=== PATIENT | male | born 1950 | race Caucasian/White ===

== ENCOUNTER 2016-07-26 00:02 | Inpatient (IN) | payer MEDICARE, OTHER ==
[~2016-07-26] VITALS: Ht 165.1 cm; Wt 54.2 kg
[2016-07-26] VITALS (12 sets, daily range): BP systolic 129–155; BP diastolic 74–79; PULSE 71–96; RESP 18–20; Ht 165.1 cm; Wt 54.2 kg
[~2016-07-26 00:02] MED LIST: ALBU8.5H3 INH; BUDE6HFA INHALATION; CEPASTAT MT; FLUT16SP17 NASAL; HYDR-906 PO; IPRA4AER INHALATION; LORA1TAB PO; ONDA8TAB83 PO; PANT40TA3 PO; PRAV20TA63 PO; PRED20TA PO; PROC10TA10 PO; TAMS-14 PO; TIOT18CA INHALATION; TRAZ100T15 PO; UDROBAC PO; ZOLP10TA PO
[2016-07-26] MEDS ORDERED: IPRATROPIUM (NEB) 0.5 MG/2.5 ML AMP INH STA (00:08)
[2016-07-26] MEDS ORDERED: ALBUTEROL 0.5% (NEB) 2.5 MG/0.5 ML AMP INH STA (00:08)
[2016-07-26] MEDS ORDERED: METHYLPREDNISOLONE 125 MG INJ IV STA (00:08)
[2016-07-26 00:39] LABS: AADO2 Arterial 7.7 mmHg (7.0-24.0); Allen Test ACCEPTAB; Arterial Base Excess 5.8 mmol/L (-3.0-3); Arterial COHb 0.9 % (0.0-3.0); Arterial Fraction of Oxyhgb 98.1 % (93.0-99.0); Arterial HCO3 34.2 mmol/L (22.0-26.0); Arterial MetHb 0.3 % (0.0-1.5); Arterial Total Hemglobin 13.8 g/dl (12.0-18.0); Blood Gas IEPAP 15/5; MODE MASK - BIPAP
[2016-07-26 00:40] LABS: ADD SCAN DIFF NO; BASOPHILS % 0.1 % (0.0-2.0); EOSINOPHILS % 0.1 % (0.0-7.0); HEMATOCRIT 41.5 % (42.0-52.0); LYMPHOCYTES # 1.2 10^3/ul (0.8-2.9); LYMPHOCYTES % 11.5 % (15.0-51.0); MEAN CORPUSCULAR HGB CONC 33.7 g/dl (32.0-37.0); MEAN CORPUSCULAR VOLUME 91.8 fl (82.0-101.0); MEAN PLATELET VOLUME 9.2 fl (7.4-10.4); MONOCYTE # 0.7 10^3/ul (0.3-0.9); MONOCYTES % 7.3 % (0.0-11.0); NEUTROPHIL # 8.2 10^3/ul (1.6-7.5); NEUTROPHILS % 80.5 % (39.0-77.0); PLATELET COUNT 223 10^3/UL (140-415); RED BLOOD COUNT 4.52 10^6/ul (4.70-6.10); RED CELL DISTRIBUTION WIDTH 12.2 % (11.5-14.5); WHITE BLOOD COUNT 10.1 10^3/ul (4.8-10.8)
[2016-07-26] MEDS ORDERED: ONDANSETRON 4 MG INJ IV STA (00:44)
[2016-07-26] MEDS ORDERED: morphine 4 MG/ML VIAL IV STA ×2 (00:44→01:57)
[2016-07-26 00:52] LABS: ALBUMIN 3.8 g/dl (3.3-4.9); CHLORIDE 95 mmol/L (97-110)
[2016-07-26 00:53] LABS: INR 0.92; POTASSIUM 4.8 mmol/L (3.5-5.1); PROTIME 12.4 Sec (12.2-14.2); SODIUM 137 mmol/L (135-144)
[2016-07-26 00:54] LABS: PARTIAL THROMBOPLASTIN TIME 29.6 Sec (25.0-35.0)
[2016-07-26 00:55] LABS: ALBUMIN/GLOBULIN RATIO 1.46; ALKALINE PHOSPHATASE 45 IU/L (42-121); ANION GAP 11 (8-16); ASPARTATE AMINO TRANSFERASE 30 IU/L (15-46); BILIRUBIN,INDIRECT 0.2 mg/dl (0-1.1); BILIRUBIN,TOTAL 0.2 mg/dl (0.2-1.3); CARBON DIOXIDE 36 mmol/L (21-31); CREATININE 0.62 mg/dl (0.61-1.24); TOTAL PROTEIN 6.4 g/dl (6.1-8.1)
[2016-07-26 00:56] LABS: ALANINE AMINOTRANSFERASE 25 IU/L (13-69); BLOOD UREA NITROGEN 17 mg/dl (7-20); GLUCOSE 95 mg/dl (70-220)
[2016-07-26] MEDS ORDERED: CEFEPIME 2GM/50 ML (PMX) 50 ML IVPB STA (01:14)
[2016-07-26] MEDS ORDERED: SODIUM CHLORIDE 0.9% 1L BAG IV* STA (01:14)
[2016-07-26 01:20] LABS: TROPONIN-I < 0.012 ng/ml (0.00-0.12)
[2016-07-26] MEDS ORDERED: VANCOMYCIN 1 GM (PMX) 250 ML IVPB ONE (01:30)
--- NOTE | 2016-07-26 01:40 | RADRPT ---
PROCEDURE: CHEST - 1 VIEW CLINICAL INDICATION: 65-year-old male with shortness of breath. TECHNIQUE: A single frontal AP upright view of the chest was performed. The images were reviewed on a PACS workstation. COMPARISON: Chest x-ray April 16, 2016; CT chest August 14, 2014; chest x-ray August 23, 2014. FINDINGS: The cardiomediastinal silhouette is within normal limits. There is hyperinflation. There is severe emphysematous changes with large bulla identified within the left mid lung zone as previously visua lized. There is no evidence for an infiltrate. There is no evidence for congestive heart failure. There is no evidence for pneumothorax. The osseous structures are intact. IMPRESSION: Severe emphysematous changes with left mid lung zone bulla without significant interval change. .Froy Jackson MD, Date Time Electronically viewed and signed by .Froy Jackson MD, on 07/26/2016 01:40 .M/
--- NOTE | 2016-07-26 01:55 | ERA ---
ER Documentation Chief Complaint Date/Time DATE: 07/26/16 TIME: 01:52 Chief Complaint respiratory distress, from home via EMS HPI This is a 65-year-old male brought in by shortness of breath for I rescue ambulance. Patient said shortness breath started 2 days getting progressively worse. Denies any fevers or chills. Denies any chest pain. Denies any other current complaints. Given albuterol in route by EMS with minimal effect. ROS All systems reviewed and are negative except as per history of present illness. Medications Home Meds Active Scripts Albuterol/Ipratropium* (Combivent Respimat*) 20-100 Mcg/Inh - 4 Gm Aer.w.adap, 1 PUFF INHALATION QID, #1 INHALER Prov:TOM BARCLAY MD 04/20/16 Fluticasone Propionate* (Fluticasone Propionate* Nasal) 50 Mcg/Anderson - 16 Gm Anderson.susp, 1 SPRAY NASAL BID Y for stuffy nose, #1 Prov:TOM BARCLAY MD 04/20/16 Throat Lozenges* (Cepastat*) 9 Jenn Lozenge, 1 LOZENGE MT Q4H Y for SORE THROAT for 30 Days, LOZENGE Prov:TOM BARCLAY MD 04/20/16 Guaifenesin-Codeine Phosphate* (Robitussin* AC) 5 Ml Syrup, 10 ML PO Q6H Y for for cough, #1 1 Refill Prov:TOM BARCLAY MD 04/20/16 Albuterol Sulfate* (Proair HFA*) 8.5 Gm Hfa.aer.ad, 2 PUFF INH Q4, #1 INHALER 2 Refills Prov:TOM BARCLAY MD 04/20/16 Budesonide-Formoterol Fumarate* (Symbicort*) 160-4.5 Hfa.aer.ad, 2 PUFF INHALATION BID, #1 EACH 2 Refills Prov:TOM BARCLAY MD 04/20/16 Tiotropium [place]* (Spiriva*) 18 Mcg Cap.w.dev, 1 CAP INHALATION DAILY, #30 CAP 2 Refills Prov:TOM BARCLAY MD 04/20/16 Trazodone Hcl* (Trazodone Hcl*) 100 Mg Tablet, 100 MG PO QHS, #30 TAB 2 Refills Prov:TOM BARCLAY MD 04/20/16 Zolpidem Tartrate* (Ambien*) 10 Mg Tablet, 10 MG PO QHS Y for INSOMNIA, #30 TAB Prov:TOM BARCLAY MD 04/20/16 Lorazepam* (Lorazepam*) 1 Mg Tablet, 1 MG PO Q6 Y for ANXIETY, #60 TAB 2 Refills Prov:TOM BARCLAY MD 04/20/16 Tamsulosin Hcl* (Flomax*) 0.4 Mg Cap.er.24h, 0.4 MG PO BID for 30 Days, CAP 2 Refills Prov:TOM BARCLAY MD 04/20/16 Prednisone* (Prednisone*) 20 Mg Tab, 20 MG PO DAILY for 28 Days, TAB TAKE 2 tablets , Tue, Tue and OTHER DAYS 1 tablet Prov:TOM BARCLAY MD 04/20/16 Reported Medications Pantoprazole* (Protonix*) 40 Mg Tablet.dr, 40 MG PO DAILY, TAB 04/16/16 Pravastatin Sodium* (Pravastatin Sodium*) 20 Mg Tablet, 20 MG PO HS, TAB 04/16/16 Hydrocodone/Acetaminophen ([place] 5-325 Tablet) 1 Each Tablet, 1 EACH PO Q6H Y for PRN, TAB 04/16/16 Ondansetron Hcl* (Ondansetron Hcl*) 8 Mg Tablet, 8 MG PO Q8 Y for NAUSEA, TAB TAKE AFTHER CHEMO 1 DAY TID AND OTHER DAYS DAILY 04/16/16 Prochlorperazine* (Prochlorperazine*) 10 Mg Tablet, 10 MG PO Q6H Y for NAUSEA, TAB 04/16/16 Allergies Allergies: Coded Allergies: No Known Allergy (Unverified , 04/16/16) PMhx/Soc History of Surgery: Yes (Bilateral inguinal hernia x2, sinus surgery ) Anesthesia Reaction: No Hx Neurological Disorder: No Hx Respiratory Disorders: Yes (COPD, emphysema, ) Hx Cardiac Disorders: Yes (HTN ) Hx Psychiatric Problems: Yes (Depression, anxiety ) Hx Miscellaneous Medical Probl: Yes (Anxiety. Depression. Currently on chemo/ esophageal cancer) Hx Alcohol Use: Yes (Beer occassionally ) Hx Substance Use: No Hx Tobacco Use: Yes (Smokes about 7-8 cig daily ) Smoking Status: Current every day smoker Physical Exam Vitals Vital Signs Date Time Temp Pulse Resp B/P Pulse Ox O2 Delivery O2 Flow Rate FiO2 07/26/16 00:43 97 24 99 30 07/26/16 00:09 97.5 130 34 216/108 86 Physical Exam Const: [] Head: Atraumatic Eyes: Normal Conjunctiva ENT: Normal External Ears, Nose and Mouth. Neck: Full range of motion..~ No meningismus. Resp: Scattered wheezes. Poor air entry. Cardio: Regular rate and rhythm, no murmurs Abd: Soft, non tender, non distended. Normal bowel sounds Skin: No petechiae or rashes Back: No midline or flank tenderness Ext: No cyanosis, or edema Neur: Awake and alert Psych: Normal Mood and Affect Result Diagram: 07/26/16507/26/165 Results 24 hrs Laboratory Tests Test 07/26/16 00:06 07/26/16 00:08 07/26/16 00:24 Activated Partial Thromboplast Time 29.6Sec Alanine Aminotransferase (ALT/SGPT) 25IU/L Albumin 3.8g/dl Albumin/Globulin Ratio 1.46 Alkaline Phosphatase 45IU/L Anion Gap 11 Aspartate Amino Transf (AST/SGOT) 30IU/L Basophils # 0.010^3/ul Basophils % 0.1% Blood Urea Nitrogen 17mg/dl Calcium Level 9.0mg/dl Carbon Dioxide Level 36mmol/L Chloride Level 95mmol/L Creatinine 0.62mg/dl Direct Bilirubin 0.00mg/dl Eosinophils # 0.010^3/ul Eosinophils % 0.1% Globulin 2.60g/dl Glucose Level 95mg/dl Hematocrit 41.5% Hemoglobin 14.0g/dl INR International Normalized Ratio 0.92 Indirect Bilirubin 0.2mg/dl Lymphocytes # 1.210^3/ul Lymphocytes % 11.5% Mean Corpuscular Hemoglobin 31.0pg Mean Corpuscular Hemoglobin Concent 33.7g/dl Mean Corpuscular Volume 91.8fl Mean Platelet Volume 9.2fl Monocytes # 0.710^3/ul Monocytes % 7.3% Neutrophils # 8.210^3/ul Neutrophils % 80.5% Nucleated Red Blood Cells # 0.010^3/ul Nucleated Red Blood Cells % 0.0/100WBC Platelet Count 96894^3/UL Potassium Level 4.8mmol/L Prothrombin Time 12.4Sec Prothrombin Time Ratio 1.0 Red Blood Count 4.5210^6/ul Red Cell Distribution Width 12.2% Sodium Level 137mmol/L Total Bilirubin 0.2mg/dl Total Protein 6.4g/dl Troponin I < 0.012ng/ml White Blood Count 10.110^3/ul Arterial Blood HCO3 34.2mmol/L Arterial Blood Base Excess 5.8mmol/L Arterial Blood Oxygen Saturation 99.3mmHG Kal Test ACCEPTAB Arterial Blood Gas Puncture Site Right Radial Arterial Blood Carboxyhemoglobin 0.9% Arterial Blood Date Drawn 07/26/2016 12:34:10 AM Arterial Blood Methemoglobin 0.3% Arterial Blood pCO2 (Temp correct) 67.9mmhg Arterial Blood pH (Temp corrected) 7.320 Arterial Blood pO2 (Temp corrected) 345.4mmHG Blood Gas A-a O2 Differential 7.7mmHg Blood Gas Actual Respiration Rate 22 Blood Gas IPAP/EPAP Ratio 15/5 Blood Gas Modality MASK - BIPAP Blood Gas Notified Time 07/26/2016 12:38:56 AM Blood Gas Notified Whom MG Blood Gas Respiration Rate 20.0 Blood Gas Specimen Source Blood arterial Blood Gas Temperature 37.0C FiO2 60.0% Oxyhemoglobin Percent 98.1% Total Hemoglobin 13.8g/dl Lactic Acid Level 2.7mmol/L Current Medications Medications (Trade) Dose Ordered Sig/Josef Route PRN Reason Start Time Stop Time Status Last Admin Dose Admin Albuterol (Proventil 0.5% (Neb)) 10 mg ONCE STAT INH 07/26/16 00:08 07/26/16 00:10 DC 07/26/16 00:43 Ipratropium [place] (Atrovent 0.02% (Neb)) 1 mg ONCE STAT INH 07/26/16 00:08 07/26/16 00:10 DC 07/26/16 00:43 Methylprednisolone Sodium Succinate (Solu-Medrol) 125 mg ONCE STAT IV 07/26/16 00:08 07/26/16 00:10 DC 07/26/16 00:28 Morphine Sulfate (morphine) 4 mg ONCE STAT IV 07/26/16 00:44 07/26/16 00:50 DC 07/26/16 00:54 Ondansetron HCl (Zofran Inj) 4 mg ONCE STAT IV 07/26/16 00:44 07/26/16 00:50 DC 07/26/16 00:53 Sodium Chloride 2330 ml 2,330 ml BOLUS OVER 2 HOURS STAT IV* 07/26/16 01:14 07/26/16 01:28 DC 07/26/16 01:30 Cefepime HCl 50 ml @ 100 mls/hr ONCE STAT IVPB 07/26/16 01:14 07/26/16 01:43 DC 07/26/16 01:31 Vancomycin HCl (Vancocin) 250 ml @ 125 mls/hr ONCE ONCE IVPB 07/26/16 01:30 07/26/16 03:29 Procedures/MDM EKG: Rate/Rhythm: Normal Sinus Rhythm QRS, ST, T-waves: No changes consistent w/ acute ischemia Impression: No evidence of ischemia or arrhythmia Chest X-ray 1V Interpreted by me: Soft Tissue: No acute abnormalities Bones: No acute abnormalities Mediastinum/Cardiac Silhouette/Lungs: No acute abnormalities Patient's infectious symptoms have not stabilized and the patient is at risk of rapid decompensation. The patient will be admitted for careful hydration, antibiotic therapy, and infectious source control. Severe Sepsis Assessment: Infectious Source: Unknown End organ damage indicated by: [Lactate > 2.0 mmol/L Severe Sepsis Managment: Blood Cultures X 2 before broad spectrum antibiotics initiated within 3 hours of recognition. 30 ml/kg NS bolus Completed Initial Lactate: [normal] Repeat Lactate pending Critical Care: Time: 45 minutes Treatments/Evaluations: Emergent fluid management, while maintaining close respiratory support. Immediate broad spectrum antibiotic therapy. Simultaneous assessment for possible sources in order to direct therapy. Consideration for invasive and chemical support to prevent respiratory or cardiac collapse. Patient placed on BiPAP. Septic Shock Assessment (1 hour post 30 ml/kg fluid bolus): Hypotension (SBP < 90 or 40 mmHg drop, MAP < 65): [No] Lactic acid > 4.0 [No] Perfusion Reassessment for Septic Shock: Temp 98.6, Pulse 99, RR 22, BP 117/76 Heart Exam: [Tachycardic] Lung Exam: [No Crackles] Capillary Refill: [Delayed] Peripheral Pulses: [Radially present] Skin: [Mottled, pale] Accepting Care Team: Current data and ongoing care discussed. Time: 1 AM Primary Provider: Hospitalist Consulting: [[place]] Outstanding Data: none Critical Care: Time: 45 minutes Treatments/Evaluations: Close monitoring and treatment of unstable vital signs, cardiorespiratory, and neurologic status, while maintaining tight balance of fluid, respiratory, and cardiac interventions. Departure Diagnosis: Primary Impression: Sepsis Qualified Code: A41.9 - Sepsis, due to unspecified organism Additional Impression: Respiratory failure Qualified Code: J96.90 - Respiratory failure, unspecified chronicity, unspecified whether with hypoxia or hypercapnia Condition: Critical TOM GHOSH Jul 26, 2016 01:55
[2016-07-26] MEDS ORDERED: GUAIFENESIN/CODEINE 5ML CUP PO PRN (03:00)
[2016-07-26] MEDS ORDERED: NACL 0.9% 3 ML SYG IV SCH (03:00)
[2016-07-26] MEDS ORDERED: hydrALAzine 20 MG INJ IV PRN (03:00)
[2016-07-26] MEDS ORDERED: NITROGLYCERIN (SL) 0.4 MG TAB SL PRN (03:00)
[2016-07-26] MEDS ORDERED: PROCHLORPERAZINE 10 MG TAB PO PRN (03:00)
[2016-07-26] MEDS ORDERED: VANCOMYCIN IV PER PHARMACY XX SCH (03:00)
[2016-07-26] MEDS ORDERED: CEPASTAT LOZENGE MT PRN (03:00)
[2016-07-26] MEDS ORDERED: DOCUSATE SODIUM 100 MG CAP PO PRN (03:00)
[2016-07-26] MEDS ORDERED: NA PHOSPHATE/BIPHOS 133 ML ENEMA PR PRN (03:00)
[2016-07-26] MEDS ORDERED: ONDANSETRON 4 MG TAB PO PRN (03:00)
[2016-07-26] MEDS ORDERED: ACETAMINOPHEN 325 MG TAB PO PRN (03:00)
[2016-07-26] MEDS ORDERED: ONDANSETRON 4 MG INJ IV PRN (03:00)
--- NOTE | 2016-07-26 04:54 | HP ---
DATE OF ADMISSION: 07/26/2016 CHIEF COMPLAINT: Respiratory distress. HISTORY OF PRESENT ILLNESS: A 65-year-old male with past medical history of esophageal cancer with prior chemoradiation, given COPD, high cholesterol, BPH, current smoker, and hypertension who has be en having shortness of breath symptoms for the last 2 days, getting progressively worse. No fevers or chills. No chest pain. No dizziness or loss of consciousness. No upper or lower GI bleeding. No diarrhea, no constipation, no fevers or chills. When he came into the ER today, he had an ABG pe rformed that showed a pH of 7.32, pCO2 of 67, PaO2 of 345, and bicarbonate of 34. He was placed on BiPAP in the ER and also given antibiotics, breathing treatment, and IV steroids as well. PAST MEDICAL HISTORY: As stated above. ALLERGIES: NO KNOWN DRUG ALLERGIES. MEDICATIONS AT HOME: 1. ProAir HFA 2 puffs inhaled q. 4 hours. 2. Combivent. 3. Flomax 0.4 mg b.i.d. 4. Spiriva inhaled daily. 5. Pravastatin 20 mg at bedtime. 6. [place] 5/325 q. 6 p.r.n. 7. Lorazepam 1 mg p.o. q. 6 p.r.n. 8. Trazodone 100 mg at bedtime. 9. Ambien 10 mg at bedtime. 10. Symbicort 2 puffs inhaled b.i.d. 11. Robitussin-AC q. 6 p.r.n. 12. Flonase b.i.d. p.r.n. 13. Cepastat lozenges q. 4 hours p.r.n. 14. Zofran 8 mg q. 8 hours p.r.n. 15. Protonix 40 mg daily. 16. Prochlorperazine 10 mg q. 6 p.r.n. 17. Prednisone 20 mg daily. PAST SURGICAL HISTORY: Bilateral inguinal hernia surgery x2 in the past and sinus surgery in the [facility]. SOCIAL HISTORY: Drinks alcohol occasionally, beer. Denies any IV drug use, and smokes about 7 to 8 cigarettes daily. PHYSICAL EXAMINATION: VITAL SIGNS: T-max 97.5, pulse 130 to 97, respirations 34 and 24, blood pressure 216/108, and satur ating at initially 86%, now 99% on FIO2 30%. GENERAL: The patient is lying in bed, wearing oxygen mask, in mild distress. HEENT: Pupils equal, round, react to light. Extraocular muscles intact. NECK: Supple, no thyromegaly. LUNGS: Mild wheezes bilaterally at the bases. CARDIOVASCULAR: S1, S2 heard. No rubs or gallops. ABDOMEN: Soft, nontender, nondistended. Normal bowel sounds. No rebound or guarding. MUSCULOSKELETAL: No lower extremity edema bilaterally. NEUROLOGIC: No focal deficits. LABORATORIES: CBC is completely normal. We mentioned the ABG results. The comprehensive metabolic panel shows sodium 137, potassium 4.8, chloride 95, CO2 36, BUN 17, creatinine 0.6, glucose 95. La ctic acid is 2.7. LFTs are normal. Troponin is negative x1. IMAGING: Chest x-ray today shows severe emphysematous changes with left mid lung zone bulla without any significant interval change. ASSESSMENT AND PLAN: A 65-year-old male with past medical history of esophageal cancer, positive sm oking history, and COPD who presents with shortness of breath, signs of sepsis, hypoxia, and hyperte nsive urgency. 1. Shortness of breath. Again, most likely secondary to combination of chronic obstructive pulmona ry disease exacerbation and history of esophageal cancer. Put the patient on breathing treatments a nd admit him to the telemetry floor. DuoNeb q. 4 hours around the clock, IV steroids, Solu-Medrol 1 25 mg q. 6 hours. Put him on broad-spectrum antibiotics as well. Continue his home COPD medication s including Ventolin HFA as well as cough medicines. Check TSH, A1c, and lipid panel. Continue BiP AP as needed. 2. History of esophageal cancer. Continue to monitor for now. No present issues. 3. History of high cholesterol. Check lipid panel. Continue statin. 4. History of smoking. Smoking cessation education and nicotine patch. 5. Benign prostatic hypertrophy. Continue the Flomax. 6. History of hypertensive urgency. Again, blood pressure has come down to 166/91. Continue hydra lazine p.r.n. 7. Sepsis. Lactic acid was elevated. Continue broad spectrum antibiotics and IV fluids. No fever s, however. 8. Gastrointestinal prophylaxis with PPI. 9. Deep venous thrombosis prophylaxis with heparin subcutaneously. Get PT consult as well and OT c onsult. Dictated By: KHRIS PEDRAZA Conf#: [id number] DID#: [id number]
[2016-07-26] MEDS: ALBUTEROL HFA 8 GM INHALER INH SCH ×9 (05:00→21:25)
[2016-07-26] MEDS: ALBUTEROL/IPRATROPIUM (NEB) 3 ML AMP HHN SCH ×5 (05:00→20:59)
[2016-07-26] MEDS: morphine 2 MG INJ IV PRN ×4 (05:22→19:52)
[2016-07-26] MEDS: SOD CHLORIDE 0.9% 1,000 ML IV SCH ×3 (06:19→21:28)
[2016-07-26] MEDS: METHYLPREDNISOLONE 125 MG INJ IV SCH ×4 (06:20→23:36)
[2016-07-26] MEDS: PANTOPRAZOLE (EC) 40 MG TAB PO SCH (06:20)
[2016-07-26] MEDS: PIPER-TAZO 3.375 GM IV (PMX) 100 ML IVPB SCH ×4 (06:21→23:36)
[2016-07-26] MEDS: LORAZEPAM 2 MG INJ IV PRN ×2 (06:55→14:10)
[2016-07-26] MEDS ORDERED: VANCOMYCIN 1 GM in NS 250 ML IVPB SCH (09:00)
[2016-07-26] MEDS ORDERED: NON-FORMULARY/PATIENT OWN MED (Albuterol/Ipratropium* (Combivent Respimat*) 1 PUFF) INHALATION SCH (09:00)
[2016-07-26] MEDS ORDERED: SALMETEROL/FLUTICASONE 250/50 INHA INH SCH (09:00)
[2016-07-26] MEDS ORDERED: NON-FORMULARY/PATIENT OWN MED (Budesonide-Formoterol Fumarate* (Symbicort*) 2 PUFF) INHALATION SCH (09:00)
[2016-07-26] MEDS: TAMSULOSIN (SR) 0.4 MG CAP PO SCH ×2 (09:16→21:25)
[2016-07-26] MEDS: IPRATROPIUM (HFA) 12.9 GM INHALER INH SCH ×4 (09:23→21:26)
[2016-07-26] MEDS: NICOTINE (21 MG/24 HR) PATCH TRANSDERM SCH (09:23)
[2016-07-26] MEDS: HEPARIN 5,000 UNIT/0.5 ML SYG SC SCH ×2 (09:32→21:35)
[2016-07-26] MEDS: SALMETEROL/FLUTICASONE 250/50 INHA INH SCH ×2 (09:40→21:25)
--- NOTE | 2016-07-26 13:35 | CONS ---
Date/Time of Note Date/Time of Note DATE: 07/26/16 TIME: 13:28 Assessment/Plan Assessment/Plan Additional Assessment/Plan Chest x-ray was reviewed from today which is showing severe emphysematous changes. No acute infiltrates identified. Assessment recommendations; 1. Patient admitted for hypercapnic respiratory failure from COPD exacerbation. 2. History of recently diagnosed esophageal cancer. Status post radiation chemotherapy. Continue current treatment. Discontinue antibiotics. BiPAP as needed. Consultation Date/Type/Reason Admit Date/Time Jul 26, 2016 at 01:16 Date of Consultation: Jul 26, 2016 Type of Consultation: Pulmonary Reason for Consultation Pulmonary consultation obtained for evaluation of severe COPD exacerbation. Next History presenting; patient is a 65-year-old male who came into the emergency room today with a 2 or 3 day history of increasing shortness of breath, with wheezing and chest tightness. Patient complains of very scant cough without any sputum production. Denies any hemoptysis, fever or chills. Denies any abdominal pain, nausea vomiting. After being admitted patient has been on BiPAP overnight and according to him that has been significant improvement in his symptoms. He denies any symptoms to suggest any viral illness like arthralgias, myalgias high fever chills or body aches. It is very mild sore throat. Past medical history; 1. Patient recently diagnosed with esophageal cancer about 3 months ago, status post radiation chemotherapy. 2. History of severe COPD. O2 dependent. 3. History of inguinal herniorrhaphy. 4. Most of any coronary artery disease or any other major abdominal surgery. Medications; were reviewed. Allergies; are none. Social history; patient still smokes off and on. No history of alcohol or drug abuse. Family history; patient is single. No history of any malignancy in the family. Occupational history; patient currently on disability. 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 Any hearing loss. Any sinus symptoms. Any seizures. Any headache. Complains of mild sore throat. Denies any dysphagia. Denies any chest pain, pedal wheezing and shortness of breath. Complains of scant cough without any hemoptysis. Denies any sputum production. Patient is also great. Denies any melena, hematochezia. Any arthritis or skin changes. Denies any orthopnea. General exam; elderly male, currently in no distress. Awake and alert. Social History Smoking Status: Former smoker Exam/Review of Systems Vital Signs Vitals Vital Signs Date Time Temp Pulse Resp B/P Pulse Ox O2 Delivery O2 Flow Rate FiO2 07/26/16 12:56 99 5.0 07/26/16 12:55 95 20 Nasal Cannula 07/26/16 11:24 98.3 129/79 07/26/16 07:43 30 Exam HEENT examination; supple neck, no JVD. No lymphadenopathy. Midline trachea. No thyromegaly. Patient is edentulous and wears dentures. Pharynx is clear. Pupils are midsize reactive to light bilaterally. Extraocular movements are intact. Chest examination; diminished breath sounds throughout with mild bilateral wheezing. S1-S2 audible, no murmurs. Regular rhythm. Abdomen examination; soft, no organomegaly. Nontender. Bowel sounds audible. Extremity examination; no peripheral edema. No clubbing. Pulses 1+ bilaterally. [employer] examination; cranial nerves are grossly intact. No focal deficit. Results Result Diagram: 07/26/16 0006 07/26/16 0006 Results 24 hrs Laboratory Tests Test 07/26/16 00:01 07/26/16 00:06 07/26/16 00:08 07/26/16 00:24 Free Thyroxine 0.97 Activated Partial Thromboplast Time 29.6 Alanine Aminotransferase (ALT/SGPT) 25 Albumin 3.8 Albumin/Globulin Ratio 1.46 Alkaline Phosphatase 45 Anion Gap 11 Aspartate Amino Transf (AST/SGOT) 30 Basophils # 0.0 Basophils % 0.1 Blood Urea Nitrogen 17 Calcium Level 9.0 Carbon Dioxide Level 36 H Chloride Level 95 L Creatinine 0.62 Direct Bilirubin 0.00 Eosinophils # 0.0 Eosinophils % 0.1 Globulin 2.60 Glucose Level 95 Hematocrit 41.5 L Hemoglobin 14.0 INR International Normalized Ratio 0.92 Indirect Bilirubin 0.2 Lymphocytes # 1.2 Lymphocytes % 11.5 L Mean Corpuscular Hemoglobin 31.0 Mean Corpuscular Hemoglobin Concent 33.7 Mean Corpuscular Volume 91.8 Mean Platelet Volume 9.2 Monocytes # 0.7 Monocytes % 7.3 Neutrophils # 8.2 H Neutrophils % 80.5 H Nucleated Red Blood Cells # 0.0 Nucleated Red Blood Cells % 0.0 Platelet Count 223 Potassium Level 4.8 Prothrombin Time 12.4 Prothrombin Time Ratio 1.0 Red Blood Count 4.52 L Red Cell Distribution Width 12.2 Sodium Level 137 Total Bilirubin 0.2 Total Protein 6.4 Troponin I < 0.012 White Blood Count 10.1 # Arterial Blood HCO3 34.2 H Arterial Blood Base Excess 5.8 H Arterial Blood Oxygen Saturation 99.3 H Kal Test ACCEPTAB Arterial Blood Gas Puncture Site Right Radial Arterial Blood Carboxyhemoglobin 0.9 Arterial Blood Date Drawn 07/26/2016 12:34:10 AM Arterial Blood Methemoglobin 0.3 Arterial Blood pCO2 (Temp correct) 67.9 H Arterial Blood pH (Temp corrected) 7.320 L Arterial Blood pO2 (Temp corrected) 345.4 H Blood Gas A-a O2 Differential 7.7 Blood Gas Actual Respiration Rate 22 Blood Gas IPAP/EPAP Ratio 15/5 Blood Gas Modality MASK - BIPAP Blood Gas Notified Time 07/26/2016 12:38:56 AM Blood Gas Notified Whom MG Blood Gas Respiration Rate 20.0 Blood Gas Specimen Source Blood arterial Blood Gas Temperature 37.0 FiO2 60.0 Oxyhemoglobin Percent 98.1 Total Hemoglobin 13.8 Lactic Acid Level 2.7 H Test 07/26/16 02:40 07/26/16 05:25 07/26/16 11:50 Lactic Acid Level 1.0 1.4 1.6 Medications Medications Current Medications Ondansetron HCl (Zofran Inj) 4 mg Q6H PRN IV NAUSEA AND/OR VOMITING; Start at 03:00 Acetaminophen (Tylenol Tab) 650 mg Q6H PRN PO PAIN LEVEL 1-3 OR FEVER; Start at 03:00 Acetaminophen/ Hydrocodone Bitart ([place] (5/325)) 1 tab Q6H PRN PO MODERATE PAIN LEVEL 4-6; Start 07/26/16 at 03:00 Morphine Sulfate (morphine) 2 mg Q4H PRN IV SEVERE PAIN LEVEL 7-10 Last administered on 07/26/16t 09:38; Admin Dose 2 MG; Start 07/26/16 at 03:00 Docusate Sodium (Colace) 100 mg Q12H PRN PO CONSTIPATION; Start 07/26/16 at 03: 00 Magnesium Hydroxide (Milk Of Mag) 30 ml DAILY PRN PO CONSTIPATION; Start at 03:00 Sodium Biphosphate/ Sodium Phosphate (Fleet Enema) 133 ml DAILY PRN DC CONSTIPATION; Start 07/26/16 at 03:00 Heparin Sodium (Porcine) (Heparin (5000 Units/0.5 ml)) 5,000 unit Q12 SC Last administered on 07/26/16 09:32; Admin Dose 5,000 UNIT; Start 07/26/16 at 09:00 Lorazepam 0.5 mg 0.5 mg Q6H PRN IV ANXIETY Last administered on 07/26/16 06:55 ; Admin Dose 0.5 MG; Start 07/26/16 at 03:00 Sodium Chloride 1,000 ml @ 100 mls/hr Q10H IV Last administered on 07/26/16 06:19; Admin Dose 100 MLS/HR; Start 07/26/16 at 02:39 Piperacillin Sod/ Tazobactam Sod (Zosyn 3.375gm/ 100 ml (Pmx)) 100 ml @ 200 mls /hr Q6 IVPB Last administered on 07/26/16 12:22; Admin Dose 200 MLS/HR; Start 07/26/16 at 06:00 Vancomycin HCl (Vanco Iv Per Pharmacy) VANCOMYCIN PER PHARMACY NOTE XX ; Start 07/26/16 at 03:00 Hydralazine HCl (Apresoline) 10 mg Q6H PRN IV ELEVATED BLOOD PRESSURE; Start at 03:00 Nitroglycerin (Nitroglycerin (Sl Tab) 0.4 Mg) 1 tab Q5M PRN SL ANGINA; Start at 03:00 Albuterol (Ventolin Hfa) 2 puff Q4 INH ; Start 07/26/16 at 05:00 Fluticasone Propionate (Flonase 0.05% Nasal) 1 spray BID PRN NASAL stuffy nose ; Start 07/26/16 at 03:00 Guaifenesin/ Codeine Phosphate (Robitussin Ac Liquid Cup) 10 ml Q6H PRN PO for cough; Start 07/26/16 at 03:00 Ondansetron HCl (Zofran Tab) 8 mg Q8 PRN PO NAUSEA; Start 07/26/16 at 03:00 Pantoprazole (Protonix Tab) 40 mg DAILY@06 PO Last administered on 07/26/16 06 :20; Admin Dose 40 MG; Start 07/26/16 at 06:00 Prochlorperazine (Compazine) 10 mg Q6H PRN PO NAUSEA; Start 07/26/16 at 03:00 Tamsulosin HCl (Flomax) 0.4 mg BID PO Last administered on 07/26/16 09:16; Admin Dose 0.4 MG; Start 07/26/16 at 09:00 Phenol (Cepastat Lozenge) 1 lozenge Q4H PRN MT SORE THROAT; Start 07/26/16 at 03:00 Trazodone HCl (Desyrel) 100 mg QHS PO ; Start 07/26/16 at 21:00 Methylprednisolone Sodium Succinate (Solu-Medrol) 125 mg Q6 IV Last administered on 07/26/16 12:20; Admin Dose 125 MG; Start 07/26/16 at 06:00 Nicotine (Nicoderm 21 Mg/ 24hr) 1 patch DAILY TRANSDERM Last administered on 09:23; Admin Dose 1 PATCH; Start 07/26/16 at 09:00 Atorvastatin Calcium 10 mg 10 mg DAILY@21 PO ; Start 07/26/16 at 21:00 Vancomycin HCl (Vancocin) 250 ml @ 125 mls/hr Q12H IVPB Last administered on 09:24; Admin Dose 125 MLS/HR; Start 07/26/16 at 09:00 Albuterol (Ventolin Hfa) 1 puff QID INH Last administered on 07/26/16 13:17; Admin Dose 1 PUFF; Start 07/26/16 at 09:00 Ipratropium [place] (Atrovent Hfa) 1 puff QID INH Last administered on 13:16; Admin Dose 1 PUFF; Start 07/26/16 at 09:00 Salmeterol Xinafoate/ Fluticasone (Advair 250/50 Diskus) 1 inh BID INH Last administered on 07/26/16 09:40; Admin Dose 1 INH; Start 07/26/16 at 09:00 [place] 20, 2017 13:35
--- NOTE | 2016-07-26 14:45 | PN ---
Date/Time of Note Date/Time of Note DATE: 07/26/16 TIME: 14:39 Assessment/Plan VTE Prophylaxis VTE Prophylaxis Intervention: SCD's Lines/Catheters IV Catheter Type [facility]from [facility]): Saline Lock Assessment/Plan Chief Complaint/Hosp Course ASSESSMENT AND PLAN: 1. Shortness of breath. most likely secondary to combination of chronic obstructive pulmonary disease exacerbation and history of esophageal cancer. Continue on breathing treatments , DuoNeb q. 4 hours around the clock, IV steroids, Solu-Medrol 125 mg q. 6 hours. Continue broad-spectrum antibiotics as well. Continue his home COPD medications including Ventolin HFA as well as cough medicines. Continue BiPAP as needed. 2. History of esophageal cancer. Continue to monitor for now. No present issues. 3. History of high cholesterol. Continue statin. 4. History of smoking. Smoking cessation education and nicotine patch. 5. Benign prostatic hypertrophy. Continue the Flomax. 6. History of hypertensive urgency. Continue home medication, placed the patient on hydralazine as needed 7. Sepsis. Lactic acid was elevated. Continue broad spectrum antibiotics and IV fluids. No fevers, however. 8. Gastrointestinal prophylaxis with PPI. 9. Deep venous thrombosis prophylaxis with heparin subcutaneously. Get PT consult as well and OT consult. Problems: Subjective 24 Hr Interval Summary Free Text/Dictation Patient continues to complain of having shortness of breath with cough and congestion No nausea vomiting diarrhea Difficulty with ambulation secondary to shortness of breath Exam/Review of Systems Vital Signs Vitals Vital Signs Date Time Temp Pulse Resp B/P Pulse Ox O2 Delivery O2 Flow Rate FiO2 07/26/16 12:56 99 5.0 07/26/16 12:55 95 20 Nasal Cannula 07/26/16 11:24 98.3 129/79 07/26/16 07:43 30 Exam General: The patient is well-developed, Not in acute distress. HEENT: Atraumatic, normocephalic. The pupils are equal and round . Neck: Supple with full range of motion. Chest: Normal expansion of the thorax during inspiration Lungs: Bilateral upper lung wheezing Heart: Normal S1-S2, Regular rhythm and rate. Abdomen: Soft , nontender, nondistended , bowel sounds are present. Extremities: Normal to inspection, no edema no cyanosis Neurologic: Normal mental status,The patient is awake, alert and oriented . Results Result Diagram: 07/26/16 0006 07/26/16 0006 Results 24 hrs Laboratory Tests Test 07/26/16 00:01 07/26/16 00:06 07/26/16 00:08 07/26/16 00:24 Free Thyroxine 0.97 Activated Partial Thromboplast Time 29.6 Alanine Aminotransferase (ALT/SGPT) 25 Albumin 3.8 Albumin/Globulin Ratio 1.46 Alkaline Phosphatase 45 Anion Gap 11 Aspartate Amino Transf (AST/SGOT) 30 Basophils # 0.0 Basophils % 0.1 Blood Urea Nitrogen 17 Calcium Level 9.0 Carbon Dioxide Level 36 H Chloride Level 95 L Creatinine 0.62 Direct Bilirubin 0.00 Eosinophils # 0.0 Eosinophils % 0.1 Globulin 2.60 Glucose Level 95 Hematocrit 41.5 L Hemoglobin 14.0 INR International Normalized Ratio 0.92 Indirect Bilirubin 0.2 Lymphocytes # 1.2 Lymphocytes % 11.5 L Mean Corpuscular Hemoglobin 31.0 Mean Corpuscular Hemoglobin Concent 33.7 Mean Corpuscular Volume 91.8 Mean Platelet Volume 9.2 Monocytes # 0.7 Monocytes % 7.3 Neutrophils # 8.2 H Neutrophils % 80.5 H Nucleated Red Blood Cells # 0.0 Nucleated Red Blood Cells % 0.0 Platelet Count 223 Potassium Level 4.8 Prothrombin Time 12.4 Prothrombin Time Ratio 1.0 Red Blood Count 4.52 L Red Cell Distribution Width 12.2 Sodium Level 137 Total Bilirubin 0.2 Total Protein 6.4 Troponin I < 0.012 White Blood Count 10.1 # Arterial Blood HCO3 34.2 H Arterial Blood Base Excess 5.8 H Arterial Blood Oxygen Saturation 99.3 H Kal Test ACCEPTAB Arterial Blood Gas Puncture Site Right Radial Arterial Blood Carboxyhemoglobin 0.9 Arterial Blood Date Drawn 07/26/2016 12:34:10 AM Arterial Blood Methemoglobin 0.3 Arterial Blood pCO2 (Temp correct) 67.9 H Arterial Blood pH (Temp corrected) 7.320 L Arterial Blood pO2 (Temp corrected) 345.4 H Blood Gas A-a O2 Differential 7.7 Blood Gas Actual Respiration Rate 22 Blood Gas IPAP/EPAP Ratio 15/5 Blood Gas Modality MASK - BIPAP Blood Gas Notified Time 07/26/2016 12:38:56 AM Blood Gas Notified Whom MG Blood Gas Respiration Rate 20.0 Blood Gas Specimen Source Blood arterial Blood Gas Temperature 37.0 FiO2 60.0 Oxyhemoglobin Percent 98.1 Total Hemoglobin 13.8 Lactic Acid Level 2.7 H Test 07/26/16 02:40 07/26/16 05:25 07/26/16 11:50 Lactic Acid Level 1.0 1.4 1.6 Medications Medications Current Medications Ondansetron HCl (Zofran Inj) 4 mg Q6H PRN IV NAUSEA AND/OR VOMITING; Start at 03:00 Acetaminophen (Tylenol Tab) 650 mg Q6H PRN PO PAIN LEVEL 1-3 OR FEVER; Start at 03:00 Acetaminophen/ Hydrocodone Bitart ([place] (5/325)) 1 tab Q6H PRN PO MODERATE PAIN LEVEL 4-6; Start 07/26/16 at 03:00 Morphine Sulfate (morphine) 2 mg Q4H PRN IV SEVERE PAIN LEVEL 7-10 Last administered on 07/26/16 09:38; Admin Dose 2 MG; Start 07/26/16 at 03:00 Docusate Sodium (Colace) 100 mg Q12H PRN PO CONSTIPATION; Start 07/26/16 at 03: 00 Magnesium Hydroxide (Milk Of Mag) 30 ml DAILY PRN PO CONSTIPATION; Start at 03:00 Sodium Biphosphate/ Sodium Phosphate (Fleet Enema) 133 ml DAILY PRN [place] CONSTIPATION; Start 07/26/16 at 03:00 Heparin Sodium (Porcine) (Heparin (5000 Units/0.5 ml)) 5,000 unit Q12 SC Last administered on 07/26/16 09:32; Admin Dose 5,000 UNIT; Start 07/26/16 at 09:00 Lorazepam 0.5 mg 0.5 mg Q6H PRN IV ANXIETY Last administered on 07/26/16 14:10 ; Admin Dose 0.5 MG; Start 07/26/16 at 03:00 Sodium Chloride 1,000 ml @ 100 mls/hr Q10H IV Last administered on 07/26/16 06:19; Admin Dose 100 MLS/HR; Start 07/26/16 at 02:39 Piperacillin Sod/ Tazobactam Sod (Zosyn 3.375gm/ 100 ml (Pmx)) 100 ml @ 200 mls /hr Q6 IVPB Last administered on 07/26/16 12:22; Admin Dose 200 MLS/HR; Start 07/26/16 at 06:00 Hydralazine HCl (Apresoline) 10 mg Q6H PRN IV ELEVATED BLOOD PRESSURE; Start at 03:00 Nitroglycerin (Nitroglycerin (Sl Tab) 0.4 Mg) 1 tab Q5M PRN SL ANGINA; Start at 03:00 Albuterol (Ventolin Hfa) 2 puff Q4 INH ; Start 07/26/16 at 05:00 Fluticasone Propionate (Flonase 0.05% Nasal) 1 spray BID PRN NASAL stuffy nose ; Start 07/26/16 at 03:00 Guaifenesin/ Codeine Phosphate (Robitussin Ac Liquid Cup) 10 ml Q6H PRN PO for cough; Start 07/26/16 at 03:00 Ondansetron HCl (Zofran Tab) 8 mg Q8 PRN PO NAUSEA; Start 07/26/16 at 03:00 Pantoprazole (Protonix Tab) 40 mg DAILY@06 PO Last administered on 07/26/16 06 :20; Admin Dose 40 MG; Start 07/26/16 at 06:00 Prochlorperazine (Compazine) 10 mg Q6H PRN PO NAUSEA; Start 07/26/16 at 03:00 Tamsulosin HCl (Flomax) 0.4 mg BID PO Last administered on 07/26/16 09:16; Admin Dose 0.4 MG; Start 07/26/16 at 09:00 Phenol (Cepastat Lozenge) 1 lozenge Q4H PRN [place] SORE THROAT; Start 07/26/16 at 03:00 Trazodone HCl (Desyrel) 100 mg QHS PO ; Start 07/26/16 at 21:00 Methylprednisolone Sodium Succinate (Solu-Medrol) 125 mg Q6 IV Last administered on 07/26/16 12:20; Admin Dose 125 MG; Start 07/26/16 at 06:00 Nicotine (Nicoderm 21 Mg/ 24hr) 1 patch DAILY TRANSDERM Last administered on 09:23; Admin Dose 1 PATCH; Start 07/26/16 at 09:00 Atorvastatin Calcium (Lipitor) 10 mg DAILY@21 PO ; Start 07/26/16 at 21:00 Albuterol (Ventolin Hfa) 1 puff QID INH Last administered on 07/26/16 13:17; Admin Dose 1 PUFF; Start 07/26/16 at 09:00 Ipratropium [place] (Atrovent Hfa) 1 puff QID INH Last administered on 13:16; Admin Dose 1 PUFF; Start 07/26/16 at 09:00 Salmeterol Xinafoate/ Fluticasone (Advair 250/50 Diskus) 1 inh BID INH Last administered on 07/26/16 09:40; Admin Dose 1 INH; Start 07/26/16 at 09:00 INEZ BECKWITH MD Jul 26, 2016 14:45
--- NOTE | 2016-07-26 19:24 | CONS ---
Date/Time of Note Date/Time of Note DATE: 07/26/16 TIME: 19:23 Assessment/Plan Assessment/Plan Chief Complaint/Hosp Course 1. Shortness of breath. most likely secondary to combination of chronic obstructive pulmonary disease exacerbation and Sepsis 2. esophageal cancer S/p chemoradiation 2 months ago 3. History of high cholesterol. Continue statin. 4. History of smoking. Smoking cessation education and nicotine patch. 5. Benign prostatic hypertrophy. Continue the Flomax. 6. History of hypertensive 7. Sepsis. G+ cocci in clusters PLans: 1. esophageal cancer S/p chemoradiation 2 months ago, Was scheduled for repeat PET CT and CT on 07/23/16. Patient missed appointment due to hospitalization. , patient needs to reschedule the PET CT and CT after discharge from hospital. Based on PET CT and CT result, will decide next management plans. Patient missed his appointment with thoracic surgeon as well, need reschedule after discharge. 2. continue ABX 3. 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 repeat blood culture 5. other management per PMD Problems: Consultation Date/Type/Reason Admit Date/Time Jul 26, 2016 at 01:16 Date of Consultation: Jul 26, 2016 Type of Consultation: Hematology and Oncology Reason for Consultation Esophageal SCC s/p concurrent chemoradiation Referring Provider: FARHAD MEYER MD Hx of Present Illness A 65-year-old male with past medical history of esophageal cancer s/p chemoradiation, COPD, high cholesterol, BPH, current smoker, and hypertension who has been having shortness of breath symptoms for 2 days prior admission, getting progressively worse. He called our office, recommended patient either come to office or go to ER. Patient was sent to ER and was admitted to [facility]. No fevers or chills. No chest pain. No dizziness or loss of consciousness. No upper or lower GI bleeding. No diarrhea, no constipation, no fevers or chills. ER , he had an ABG performed that showed a pH of 7.32, pCO2 of 67, PaO2 of 345, and bicarbonate of 34. He was placed on BiPAP in the ER and also given antibiotics, breathing treatment, and IV steroids as well. 07/26/16 Blood cultrure: Gram positive cocci in clusters 1 of 2 bottles seen on gram. Patient is currently on Vanco and Zosyn. felt better. esophageal SCC s/p chemoradiation 2 months. Was scheduled for repeat PET CT and CT on 07/23/16. Patient missed appointment due to hospitalization. Patient called office and would like the oncologist follow up him in the hospital. Hematology and oncology consult for esophageal SCC s/p chemoradiation. Constitutional: No chills, No diaphoresis, No disoriented, No febrile, No improved, No no complaints, No other, No poor po, No requiring IVF, No requiring O2 Respiratory: shortness of breath Cardiovascular: No chest pain, No edema, No lightheadedness, No no complaints, No orthopenea, No other, No palpitations, No paroxysmal nocturnal dyspnea Gastrointestinal: No blood, No constipation, No decreased appetite, No diarrhea , No flatus, No nausea, No no complaints, No other, No pain, No passing stool, No vomiting Genitourinary: No bleeding, No discharge, No dysuria, No flank pain, No hematuria, No no complaints, No other Musculoskeletal: No back pain, No bone/joint pain, No neck pain, No no complaints, No other, No restricted range of motion, No swelling Neurologic: No confusion, No dizziness, No focal-weakness, No headache, No no complaints, No other, No seizure, No syncope Endocrine: No dry skin, No no complaints, No other, No polydypsia, No polyuria , No temp intolerance Past Medical History history of esophageal cancer s/p chemoradiation, COPD, high cholesterol, BPH, current smoker, and hypertension Past Surgical History Past Surgical Hx: no surgical history Family History Significant Family History: no pertinent family hx Social History Alcohol Use: none Smoking Status: Former smoker (quit last year after diagnosed SCC) Drug Use: none Exam/Review of Systems Vital Signs Vitals Vital Signs Date Time Temp Pulse Resp B/P Pulse Ox O2 Delivery O2 Flow Rate FiO2 07/26/16 18:10 96 98 30 07/26/16 17:42 4.0 07/26/16 17:04 20 Nasal Cannula 07/26/16 16:29 98.0 140/74 Exam Constitutional: No alert, No distress, No frail, No non-verbal, No obese, No oriented, No other, No well developed Eyes: No EOMI, No PERRL, No fundi, disc, No icteric, No nl conjunctiva, No nl lids, No nl sclera, No other ENMT: No intubated, No mucosa pink and moist, No nl external ears & nose, No nl lips & teeth, No nl nasal mucosa & septum, No other, No tympanic membranes Neck: No bruits, No jvd, No masses, No non-tender, No nuchal rigidity, No other , No supple, No thyromegaly Respiratory: diminished breath sounds Cardiovascular: No S3, No S4, No bruits, No diastolic murmur, No edema, No gallop, No irregular rhythm, No jugular venous distention (JVD), No murmurs/ extra sounds, No nl pulses, No other, No regular rate and rhythm, No rub, No systolic murmur Gastrointestinal: No ascites, No bowel sounds, No distended, No firm, No hepatomegaly, No mass, No nl liver, spleen, No non-tender, No other, No rebound or guarding, No soft, No splenomegaly, No surgical scars, No tender Extremities: No calf tenderness, No clubbing, No cyanosis, No edema, No normal pulses, No other, No palpable cord, No pitting pedal edema, No tenderness Neurological: No BUNDLE SHAKER II-XII intact, No DTR's symmetric, No confused, No focal weakness, No lethargic, No nl mental status, No nl speech, No nl strength, No numbness, No other, No reflexes, No unresponsive Results Result Diagram: 07/26/16507/26/166 Results 24 hrs Laboratory Tests Test 07/26/16 00:01 07/26/16 00:06 07/26/16 00:08 07/26/16 00:24 Free Thyroxine 0.97 Activated Partial Thromboplast Time 29.6 Alanine Aminotransferase (ALT/SGPT) 25 Albumin 3.8 Albumin/Globulin Ratio 1.46 Alkaline Phosphatase 45 Anion Gap 11 Aspartate Amino Transf (AST/SGOT) 30 Basophils # 0.0 Basophils % 0.1 Blood Urea Nitrogen 17 Calcium Level 9.0 Carbon Dioxide Level 36 H Chloride Level 95 L Creatinine 0.62 Direct Bilirubin 0.00 Eosinophils # 0.0 Eosinophils % 0.1 Globulin 2.60 Glucose Level 95 Hematocrit 41.5 L Hemoglobin 14.0 INR International Normalized Ratio 0.92 Indirect Bilirubin 0.2 Lymphocytes # 1.2 Lymphocytes % 11.5 L Mean Corpuscular Hemoglobin 31.0 Mean Corpuscular Hemoglobin Concent 33.7 Mean Corpuscular Volume 91.8 Mean Platelet Volume 9.2 Monocytes # 0.7 Monocytes % 7.3 Neutrophils # 8.2 H Neutrophils % 80.5 H Nucleated Red Blood Cells # 0.0 Nucleated Red Blood Cells % 0.0 Platelet Count 223 Potassium Level 4.8 Prothrombin Time 12.4 Prothrombin Time Ratio 1.0 Red Blood Count 4.52 L Red Cell Distribution Width 12.2 Sodium Level 137 Total Bilirubin 0.2 Total Protein 6.4 Troponin I < 0.012 White Blood Count 10.1 # Arterial Blood HCO3 34.2 H Arterial Blood Base Excess 5.8 H Arterial Blood Oxygen Saturation 99.3 H Kal Test ACCEPTAB Arterial Blood Gas Puncture Site Right Radial Arterial Blood Carboxyhemoglobin 0.9 Arterial Blood Date Drawn 07/26/2016 12:34:10 AM Arterial Blood Methemoglobin 0.3 Arterial Blood pCO2 (Temp correct) 67.9 H Arterial Blood pH (Temp corrected) 7.320 L Arterial Blood pO2 (Temp corrected) 345.4 H Blood Gas A-a O2 Differential 7.7 Blood Gas Actual Respiration Rate 22 Blood Gas IPAP/EPAP Ratio 15/5 Blood Gas Modality MASK - BIPAP Blood Gas Notified Time 07/26/2016 12:38:56 AM Blood Gas Notified Whom MG Blood Gas Respiration Rate 20.0 Blood Gas Specimen Source Blood arterial Blood Gas Temperature 37.0 FiO2 60.0 Oxyhemoglobin Percent 98.1 Total Hemoglobin 13.8 Lactic Acid Level 2.7 H Test 07/26/16 02:40 07/26/16 05:25 07/26/16 11:50 Lactic Acid Level 1.0 1.4 1.6 Medications Medications Current Medications Ondansetron HCl (Zofran Inj) 4 mg Q6H PRN IV NAUSEA AND/OR VOMITING; Start at 03:00 Acetaminophen (Tylenol Tab) 650 mg Q6H PRN PO PAIN LEVEL 1-3 OR FEVER; Start at 03:00 Acetaminophen/ Hydrocodone Bitart ([place] (5/325)) 1 tab Q6H PRN PO MODERATE PAIN LEVEL 4-6; Start 07/26/16 at 03:00 Morphine Sulfate (morphine) 2 mg Q4H PRN IV SEVERE PAIN LEVEL 7-10 Last administered on 07/26/16t 14:52; Admin Dose 2 MG; Start 07/26/16 at 03:00 Docusate Sodium (Colace) 100 mg Q12H PRN PO CONSTIPATION; Start 07/26/16 at 03: 00 Magnesium Hydroxide (Milk Of Mag) 30 ml DAILY PRN PO CONSTIPATION; Start at 03:00 Sodium Biphosphate/ Sodium Phosphate (Fleet Enema) 133 ml DAILY PRN [place] CONSTIPATION; Start 07/26/16 at 03:00 Heparin Sodium (Porcine) (Heparin (5000 Units/0.5 ml)) 5,000 unit Q12 SC Last administered on 07/26/16 09:32; Admin Dose 5,000 UNIT; Start 07/26/16 at 09:00 Lorazepam 0.5 mg 0.5 mg Q6H PRN IV ANXIETY Last administered on 07/26/16 14:10 ; Admin Dose 0.5 MG; Start 07/26/16 at 03:00 Sodium Chloride 1,000 ml @ 100 mls/hr Q10H IV Last administered on 07/26/16 06:19; Admin Dose 100 MLS/HR; Start 07/26/16 at 02:39 Piperacillin Sod/ Tazobactam Sod (Zosyn 3.375gm/ 100 ml (Pmx)) 100 ml @ 200 mls /hr Q6 IVPB Last administered on 07/26/16 17:37; Admin Dose 200 MLS/HR; Start 07/26/16 at 06:00 Hydralazine HCl (Apresoline) 10 mg Q6H PRN IV ELEVATED BLOOD PRESSURE; Start at 03:00 Nitroglycerin (Nitroglycerin (Sl Tab) 0.4 Mg) 1 tab Q5M PRN SL ANGINA; Start at 03:00 Albuterol (Ventolin Hfa) 2 puff Q4 INH Last administered on 07/26/16 17:36; Admin Dose 2 PUFF; Start 07/26/16 at 05:00 Fluticasone Propionate (Flonase 0.05% Nasal) 1 spray BID PRN NASAL stuffy nose ; Start 07/26/16 at 03:00 Guaifenesin/ Codeine Phosphate (Robitussin Ac Liquid Cup) 10 ml Q6H PRN PO for cough; Start 07/26/16 at 03:00 Ondansetron HCl (Zofran Tab) 8 mg Q8 PRN PO NAUSEA; Start 07/26/16 at 03:00 Pantoprazole (Protonix Tab) 40 mg DAILY@06 PO Last administered on 07/26/16 06 :20; Admin Dose 40 MG; Start 07/26/16 at 06:00 Prochlorperazine (Compazine) 10 mg Q6H PRN PO NAUSEA; Start 07/26/16 at 03:00 Tamsulosin HCl (Flomax) 0.4 mg BID PO Last administered on 07/26/16 09:16; Admin Dose 0.4 MG; Start 07/26/16 at 09:00 Phenol (Cepastat Lozenge) 1 lozenge Q4H PRN MT SORE THROAT; Start 07/26/16 at 03:00 Trazodone HCl (Desyrel) 100 mg QHS PO ; Start 07/26/16 at 21:00 Methylprednisolone Sodium Succinate (Solu-Medrol) 125 mg Q6 IV Last administered on 07/26/16 17:37; Admin Dose 125 MG; Start 07/26/16 at 06:00 Nicotine (Nicoderm 21 Mg/ 24hr) 1 patch DAILY TRANSDERM Last administered on 09:23; Admin Dose 1 PATCH; Start 07/26/16 at 09:00 Atorvastatin Calcium (Lipitor) 10 mg DAILY@21 PO ; Start 07/26/16 at 21:00 Albuterol (Ventolin Hfa) 1 puff QID INH Last administered on 07/26/16 13:17; Admin Dose 1 PUFF; Start 07/26/16 at 09:00 Ipratropium [place] (Atrovent Hfa) 1 puff QID INH Last administered on 17:36; Admin Dose 1 PUFF; Start 07/26/16 at 09:00 Salmeterol Xinafoate/ Fluticasone (Advair 250/50 Diskus) 1 inh BID INH Last administered on 07/26/16 09:40; Admin Dose 1 INH; Start 07/26/16 at 09:00 FARHAD MEYER MD Jul 26, 2016 19:24
[2016-07-26] MEDS ORDERED: NON-FORMULARY/PATIENT OWN MED (Pravastatin Sodium* 20 MG) PO SCH (21:00)
[2016-07-26] MEDS: ATORVASTATIN 10 MG TAB PO SCH (21:25)
[2016-07-26] MEDS: traZODone 100 MG TAB PO SCH (21:26)
[2016-07-27] VITALS (18 sets, daily range): BP systolic 122–173; BP diastolic 64–94; PULSE 71–110; RESP 17–20
[2016-07-27] MEDS: ALBUTEROL HFA 8 GM INHALER INH SCH ×8 (01:00→20:53)
[2016-07-27] MEDS: ALBUTEROL/IPRATROPIUM (NEB) 3 ML AMP HHN SCH ×6 (01:29→09:24)
[2016-07-27] MEDS: LORAZEPAM 2 MG INJ IV PRN ×3 (05:15→22:23)
[2016-07-27] MEDS: METHYLPREDNISOLONE 125 MG INJ IV SCH ×3 (05:38→20:05)
[2016-07-27] MEDS: PIPER-TAZO 3.375 GM IV (PMX) 100 ML IVPB SCH ×4 (05:38→23:49)
[2016-07-27] MEDS: PANTOPRAZOLE (EC) 40 MG TAB PO SCH (05:38)
[2016-07-27] MEDS: morphine 2 MG INJ IV PRN ×3 (06:29→17:17)
[2016-07-27 07:14] LABS: CHOL/HDL RATIO 2.3 RATIO
[2016-07-27 07:41] LABS: THYROID STIMULATING HORMONE 0.072 MIU/L (0.465-4.680)
[2016-07-27 08:15] LABS: ADD SCAN DIFF NO
[2016-07-27 08:19] LABS: ADD UMIC NO; URINE BILIRUBIN (Dip) NEGATIVE (NEGATIVE); URINE BLOOD (Dip) NEGATIVE (NEGATIVE); URINE COLOR LT. YELLOW (YELLOW); URINE GLUCOSE (Dip) NEGATIVE (NEGATIVE); URINE KETONES (Dip) NEGATIVE (NEGATIVE); URINE LEUKOCYTE ESTERASE (Dip) NEGATIVE (NEGATIVE); URINE NITRITE (Dip) NEGATIVE (NEGATIVE); URINE TOTAL PROTEIN (Dip) NEGATIVE (NEGATIVE); URINE UROBILINOGEN (Dip) 0.2 E.U./dL (0.1-1.0)
[2016-07-27 08:36] LABS: POTASSIUM 3.5 mmol/L (3.5-5.1)
[2016-07-27 08:38] LABS: CREATININE 0.52 mg/dl (0.61-1.24)
[2016-07-27 08:39] LABS: CALCIUM 8.5 mg/dl (8.4-10.2); MAGNESIUM 2.1 mg/dl (1.7-2.5); PHOSPHORUS 3.2 mg/dl (2.5-4.9)
[2016-07-27] MEDS: TAMSULOSIN (SR) 0.4 MG CAP PO SCH ×2 (08:39→20:53)
[2016-07-27] MEDS: NICOTINE (21 MG/24 HR) PATCH TRANSDERM SCH (08:39)
[2016-07-27] MEDS: IPRATROPIUM (HFA) 12.9 GM INHALER INH SCH ×4 (08:41→20:52)
[2016-07-27] MEDS: HEPARIN 5,000 UNIT/0.5 ML SYG SC SCH ×2 (08:41→20:12)
[2016-07-27] MEDS: SALMETEROL/FLUTICASONE 250/50 INHA INH SCH ×2 (08:41→20:52)
[2016-07-27] MEDS: SOD CHLORIDE 0.9% 1,000 ML IV SCH (08:49)
[2016-07-27 08:51] LABS: ABNORMAL IP MESSAGE 1; HEMATOCRIT 32.5 % (42.0-52.0); LYMPHOCYTES # 0.2 10^3/ul (0.8-2.9); MEAN CORPUSCULAR HEMOGLOBIN 30.6 pg (29.0-33.0); MEAN CORPUSCULAR HGB CONC 33.8 g/dl (32.0-37.0); MEAN CORPUSCULAR VOLUME 90.5 fl (82.0-101.0); MEAN PLATELET VOLUME 9.7 fl (7.4-10.4); MONOCYTE # 0.2 10^3/ul (0.3-0.9); MONOCYTES % 3.5 % (0.0-11.0); NEUTROPHIL # 5.3 10^3/ul (1.6-7.5); NEUTROPHILS % 91.8 % (39.0-77.0); PLATELET COUNT 151 10^3/UL (140-415); RED BLOOD COUNT 3.59 10^6/ul (4.70-6.10); RED CELL DISTRIBUTION WIDTH 12.2 % (11.5-14.5); WHITE BLOOD COUNT 5.8 10^3/ul (4.8-10.8)
[2016-07-27] MEDS ORDERED: LORAZEPAM 2 MG INJ IV SCH (09:50)
--- NOTE | 2016-07-27 11:08 | CONS ---
Date/Time of Note Date/Time of Note DATE: 07/27/16 TIME: 11:06 Assessment/Plan Assessment/Plan Additional Assessment/Plan Assessment recommendations; 1. Patient admitted for severe COPD exacerbation with hypercapnic respiratory failure. 2. Recently diagnosed esophageal cancer, status post radiation and chemotherapy. Next Continue current treatment resume BiPAP. Continue current Solu-Medrol dosing as well as current bronchodilator regimen. Consultation Date/Type/Reason Admit Date/Time Jul 26, 2016 at 01:16 Initial Consult Date 07/26/16 Type of Consultation: Pulmonary Referring Provider: FARHAD MEYER MD 24 HR Interval Summary Free Text/Dictation Patient condition is tenuous at best. Still complains of shortness of breath off BiPAP. Denies any cough but complains of wheezing. Denies any fever, chills. Any nausea vomiting. Next General exam; elderly male, currently in no distress appears mildly tachypneic. Exam/Review of Systems Vital Signs Vitals Vital Signs Date Time Temp Pulse Resp B/P Pulse Ox O2 Delivery O2 Flow Rate FiO2 07/27/16 09:15 96 95 30 07/27/16 08:45 Nasal Cannula 4.0 07/27/16 07:32 98.2 20 147/86 Intake and Output 07/26/16 07/26/16 07/27/16 15:00 23:00 07:00 Intake Total 350 ml 1300 ml 1380 ml Output Total 1000 ml 1400 ml Balance 350 ml 300 ml -20 ml Exam H EENT exam; supple neck, no JVD. No lymphadenopathy. Midline trachea. No thyromegaly. Pharynx is clear. Patient has fair dentition. Pupils are midsize reactive to light. Chest examination MA: Very poor breath sounds bilaterally with bilateral expiratory wheezing. S1-S2 audible, no murmurs. Regular rhythm. Abdomen examination; soft, nondistended. No organomegaly. Bowel sounds audible. Next Extremity examination; no peripheral edema. Pulses 1+ bilaterally. No clubbing. [employer] exam is; no focal deficit. Results Result Diagram: 07/27/16 0602 07/27/16 0602 Results 24 hrs Laboratory Tests Test 07/26/16 11:50 07/26/16 18:45 07/27/16 06:02 Lactic Acid Level 1.6 3.0 H Anion Gap 10 Basophils # 0.0 Basophils % 0.0 Blood Urea Nitrogen 12 Calcium Level 8.5 Carbon Dioxide Level 32 H Chloride Level 102 Cholesterol Level 178 Cholesterol/HDL Ratio 2.3 Creatinine 0.52 L Eosinophils # 0.0 Eosinophils % 0.0 Glucose Level 129 HDL Cholesterol 77 Hematocrit 32.5 #L Hemoglobin 11.0 #L Hemoglobin A1c 5.2 LDL Cholesterol, Calculated 84 Lymphocytes # 0.2 L Lymphocytes % 4.0 L Magnesium Level 2.1 Mean Corpuscular Hemoglobin 30.6 Mean Corpuscular Hemoglobin Concent 33.8 Mean Corpuscular Volume 90.5 Mean Platelet Volume 9.7 Monocytes # 0.2 L Monocytes % 3.5 Neutrophils # 5.3 Neutrophils % 91.8 H Nucleated Red Blood Cells # 0.0 Nucleated Red Blood Cells % 0.0 Phosphorus Level 3.2 Platelet Count 151 # Potassium Level 3.5 Red Blood Count 3.59 #L Red Cell Distribution Width 12.2 Sodium Level 140 Thyroid Stimulating Hormone (TSH) 0.072 L Triglycerides Level 84 White Blood Count 5.8 # Medications Medications Current Medications Ondansetron HCl (Zofran Inj) 4 mg Q6H PRN IV NAUSEA AND/OR VOMITING; Start at 03:00 Acetaminophen (Tylenol Tab) 650 mg Q6H PRN PO PAIN LEVEL 1-3 OR FEVER; Start at 03:00 Acetaminophen/ Hydrocodone Bitart ([place] (5/325)) 1 tab Q6H PRN PO MODERATE PAIN LEVEL 4-6; Start 07/26/16 at 03:00 Morphine Sulfate (morphine) 2 mg Q4H PRN IV SEVERE PAIN LEVEL 7-10 Last administered on 07/27/16 06:29; Admin Dose 2 MG; Start 07/26/16 at 03:00 Docusate Sodium (Colace) 100 mg Q12H PRN PO CONSTIPATION; Start 07/26/16 at 03: 00 Magnesium Hydroxide (Milk Of Mag) 30 ml DAILY PRN PO CONSTIPATION; Start at 03:00 Sodium Biphosphate/ Sodium Phosphate (Fleet Enema) 133 ml DAILY PRN [place] CONSTIPATION; Start 07/26/16 at 03:00 Heparin Sodium (Porcine) (Heparin (5000 Units/0.5 ml)) 5,000 unit Q12 SC Last administered on 07/27/16 08:41; Admin Dose 5,000 UNIT; Start 07/26/16 at 09:00 Lorazepam 0.5 mg 0.5 mg Q6H PRN IV ANXIETY Last administered on 07/27/16 05:15 ; Admin Dose 0.5 MG; Start 07/26/16 at 03:00 Sodium Chloride 1,000 ml @ 100 mls/hr Q10H IV Last administered on 07/27/16 08:49; Admin Dose 100 MLS/HR; Start 07/26/16 at 02:39 Piperacillin Sod/ Tazobactam Sod (Zosyn 3.375gm/ 100 ml (Pmx)) 100 ml @ 200 mls /hr Q6 IVPB Last administered on 07/27/16 05:38; Admin Dose 200 MLS/HR; Start 07/26/16 at 06:00 Hydralazine HCl (Apresoline) 10 mg Q6H PRN IV ELEVATED BLOOD PRESSURE; Start at 03:00 Nitroglycerin (Nitroglycerin (Sl Tab) 0.4 Mg) 1 tab Q5M PRN SL ANGINA; Start at 03:00 Albuterol (Ventolin Hfa) 2 puff Q4 INH Last administered on 07/26/16 21:25; Admin Dose 2 PUFF; Start 07/26/16 at 05:00 Fluticasone Propionate (Flonase 0.05% Nasal) 1 spray BID PRN NASAL stuffy nose ; Start 07/26/16 at 03:00 Guaifenesin/ Codeine Phosphate (Robitussin Ac Liquid Cup) 10 ml Q6H PRN PO for cough; Start 07/26/16 at 03:00 Ondansetron HCl (Zofran Tab) 8 mg Q8 PRN PO NAUSEA; Start 07/26/16 at 03:00 Pantoprazole (Protonix Tab) 40 mg DAILY@06 PO Last administered on 07/27/16 05 :38; Admin Dose 40 MG; Start 07/26/16 at 06:00 Prochlorperazine (Compazine) 10 mg Q6H PRN PO NAUSEA; Start 07/26/16 at 03:00 Tamsulosin HCl (Flomax) 0.4 mg BID PO Last administered on 07/27/16 08:39; Admin Dose 0.4 MG; Start 07/26/16 at 09:00 Phenol (Cepastat Lozenge) 1 lozenge Q4H PRN [place] SORE THROAT; Start 07/26/16 at 03:00 Trazodone HCl (Desyrel) 100 mg QHS PO Last administered on 07/26/16 21:26; Admin Dose 100 MG; Start 07/26/16 at 21:00 Methylprednisolone Sodium Succinate (Solu-Medrol) 125 mg Q6 IV Last administered on 07/27/16 05:38; Admin Dose 125 MG; Start 07/26/16 at 06:00 Nicotine (Nicoderm 21 Mg/ 24hr) 1 patch DAILY TRANSDERM Last administered on 08:39; Admin Dose 1 PATCH; Start 07/26/16 at 09:00 Atorvastatin Calcium (Lipitor) 10 mg DAILY@21 PO Last administered on 21:25; Admin Dose 10 MG; Start 07/26/16 at 21:00 Albuterol (Ventolin Hfa) 1 puff QID INH Last administered on 07/27/16 08:42; Admin Dose 1 PUFF; Start 07/26/16 at 09:00 Ipratropium [place] (Atrovent Hfa) 1 puff QID INH Last administered on 08:41; Admin Dose 1 PUFF; Start 07/26/16 at 09:00 Salmeterol Xinafoate/ Fluticasone (Advair 250/50 Diskus) 1 inh BID INH Last administered on 07/27/16 08:41; Admin Dose 1 INH; Start 07/26/16 at 09:00 Lorazepam (Ativan) 0.5 mg ONCE IV Last administered on 07/27/16 09:53; Admin Dose 0.5 MG; Start 07/27/16 at 09:50; Stop 07/27/16 at 11:30 SPRING TURCIOS Jul 27, 2016 11:08
--- NOTE | 2016-07-27 14:11 | PN ---
Date/Time of Note Date/Time of Note DATE: 07/27/16 TIME: 14:10 Assessment/Plan VTE Prophylaxis VTE Prophylaxis Intervention: SCD's Lines/Catheters [facility] Peripheral IV Urinary Cath still in place: No Assessment/Plan Chief Complaint/Hosp Course ASSESSMENT AND PLAN: 1. Shortness of breath. most likely secondary to combination of chronic obstructive pulmonary disease exacerbation and history of esophageal cancer. Continue on breathing treatments , DuoNeb q. 4 hours around the clock, IV steroids, Solu-Medrol 125 mg q. 6 hours. Continue broad-spectrum antibiotics as well. Continue his home COPD medications including Ventolin HFA as well as cough medicines. Continue BiPAP as needed. 2. History of esophageal cancer. Continue to monitor for now. No present issues. 3. History of high cholesterol. Continue statin. 4. History of smoking. Smoking cessation education and nicotine patch. 5. Benign prostatic hypertrophy. Continue the Flomax. 6. History of hypertensive urgency. Continue home medication, placed the patient on hydralazine as needed 7. Sepsis. Lactic acid was elevated. Continue broad spectrum antibiotics and IV fluids. No fevers, however. 8. Gastrointestinal prophylaxis with PPI. 9. Deep venous thrombosis prophylaxis with heparin subcutaneously. Get PT consult as well and OT consult. Problems: Subjective 24 Hr Interval Summary Free Text/Dictation Patient continues to complain of having shortness of breath Minimal p.o. intake Difficulty with ambulation secondary shortness of breath Exam/Review of Systems Vital Signs Vitals Vital Signs Date Time Temp Pulse Resp B/P Pulse Ox O2 Delivery O2 Flow Rate FiO2 07/27/16 12:16 96 07/27/16 11:14 98.3 20 122/75 96 07/27/16 09:15 30 07/27/16 08:45 Nasal Cannula 4.0 Intake and Output 07/26/16 07/26/16 07/27/16 15:00 23:00 07:00 Intake Total 350 ml 1300 ml 1380 ml Output Total 1000 ml 1400 ml Balance 350 ml 300 ml -20 ml Exam General: The patient is well-developed, Not in acute distress. HEENT: Atraumatic, normocephalic. The pupils are equal and round . Neck: Supple with full range of motion. Chest: Use of accessory muscle with deep inspiration Lungs: Bilateral upper lung wheezing Heart: Normal S1-S2, Regular rhythm and rate. Abdomen: Soft , nontender, nondistended , bowel sounds are present. Extremities: Normal to inspection, no edema no cyanosis Neurologic: Normal mental status,The patient is awake, alert and oriented . Results Result Diagram: 07/27/16 0602 07/27/16 0602 Results 24 hrs Laboratory Tests Test 07/26/16 18:45 07/27/16 06:02 Lactic Acid Level 3.0 H Anion Gap 10 Basophils # 0.0 Basophils % 0.0 Blood Urea Nitrogen 12 Calcium Level 8.5 Carbon Dioxide Level 32 H Chloride Level 102 Cholesterol Level 178 Cholesterol/HDL Ratio 2.3 Creatinine 0.52 L Eosinophils # 0.0 Eosinophils % 0.0 Glucose Level 129 HDL Cholesterol 77 Hematocrit 32.5 #L Hemoglobin 11.0 #L Hemoglobin A1c 5.2 LDL Cholesterol, Calculated 84 Lymphocytes # 0.2 L Lymphocytes % 4.0 L Magnesium Level 2.1 Mean Corpuscular Hemoglobin 30.6 Mean Corpuscular Hemoglobin Concent 33.8 Mean Corpuscular Volume 90.5 Mean Platelet Volume 9.7 Monocytes # 0.2 L Monocytes % 3.5 Neutrophils # 5.3 Neutrophils % 91.8 H Nucleated Red Blood Cells # 0.0 Nucleated Red Blood Cells % 0.0 Phosphorus Level 3.2 Platelet Count 151 # Potassium Level 3.5 Red Blood Count 3.59 #L Red Cell Distribution Width 12.2 Sodium Level 140 Thyroid Stimulating Hormone (TSH) 0.072 L Triglycerides Level 84 White Blood Count 5.8 # Medications Medications Current Medications Ondansetron HCl (Zofran Inj) 4 mg Q6H PRN IV NAUSEA AND/OR VOMITING; Start at 03:00 Acetaminophen (Tylenol Tab) 650 mg Q6H PRN PO PAIN LEVEL 1-3 OR FEVER; Start at 03:00 Acetaminophen/ Hydrocodone Bitart ([place] (5/325)) 1 tab Q6H PRN PO MODERATE PAIN LEVEL 4-6; Start 07/26/16 at 03:00 Morphine Sulfate (morphine) 2 mg Q4H PRN IV SEVERE PAIN LEVEL 7-10 Last administered on 07/27/16t 12:20; Admin Dose 2 MG; Start 07/26/16 at 03:00 Docusate Sodium (Colace) 100 mg Q12H PRN PO CONSTIPATION; Start 07/26/16 at 03: 00 Magnesium Hydroxide (Milk Of Mag) 30 ml DAILY PRN PO CONSTIPATION; Start at 03:00 Sodium Biphosphate/ Sodium Phosphate (Fleet Enema) [address] CONSTIPATION; Start 07/26/16 at 03:00 Heparin Sodium (Porcine) (Heparin (5000 Units/0.5 ml)) 5,000 unit Q12 SC Last administered on 07/27/16 08:41; Admin Dose 5,000 UNIT; Start 07/26/16 at 09:00 Lorazepam 0.5 mg 0.5 mg Q6H PRN IV ANXIETY Last administered on 07/27/16 05:15 ; Admin Dose 0.5 MG; Start 07/26/16 at 03:00 Sodium Chloride 1,000 ml @ 100 mls/hr Q10H IV Last administered on 07/27/16 08:49; Admin Dose 100 MLS/HR; Start 07/26/16 at 02:39 Piperacillin Sod/ Tazobactam Sod (Zosyn 3.375gm/ 100 ml (Pmx)) 100 ml @ 200 mls /hr Q6 IVPB Last administered on 07/27/16 12:19; Admin Dose 200 MLS/HR; Start 07/26/16 at 06:00 Hydralazine HCl (Apresoline) 10 mg Q6H PRN IV ELEVATED BLOOD PRESSURE; Start at 03:00 Nitroglycerin (Nitroglycerin (Sl Tab) 0.4 Mg) 1 tab Q5M PRN SL ANGINA; Start at 03:00 Albuterol (Ventolin Hfa) 2 puff Q4 INH Last administered on 07/26/16 21:25; Admin Dose 2 PUFF; Start 07/26/16 at 05:00 Fluticasone Propionate (Flonase 0.05% Nasal) 1 spray BID PRN NASAL stuffy nose ; Start 07/26/16 at 03:00 Guaifenesin/ Codeine Phosphate (Robitussin Ac Liquid Cup) 10 ml Q6H PRN PO for cough; Start 07/26/16 at 03:00 Ondansetron HCl (Zofran Tab) 8 mg Q8 PRN PO NAUSEA; Start 07/26/16 at 03:00 Pantoprazole (Protonix Tab) 40 mg DAILY@06 PO Last administered on 07/27/16 05 :38; Admin Dose 40 MG; Start 07/26/16 at 06:00 Prochlorperazine (Compazine) 10 mg Q6H PRN PO NAUSEA; Start 07/26/16 at 03:00 Tamsulosin HCl (Flomax) 0.4 mg BID PO Last administered on 07/27/16 08:39; Admin Dose 0.4 MG; Start 07/26/16 at 09:00 Phenol (Cepastat Lozenge) 1 lozenge Q4H PRN [place] SORE THROAT; Start 07/26/16 at 03:00 Trazodone HCl (Desyrel) 100 mg QHS PO Last administered on 07/26/16 21:26; Admin Dose 100 MG; Start 07/26/16 at 21:00 Methylprednisolone Sodium Succinate (Solu-Medrol) 125 mg Q6 IV Last administered on 07/27/16 12:18; Admin Dose 125 MG; Start 07/26/16 at 06:00 Nicotine (Nicoderm 21 Mg/ 24hr) 1 patch DAILY TRANSDERM Last administered on 08:39; Admin Dose 1 PATCH; Start 07/26/16 at 09:00 Atorvastatin Calcium (Lipitor) 10 mg DAILY@21 PO Last administered on 21:25; Admin Dose 10 MG; Start 07/26/16 at 21:00 Albuterol (Ventolin Hfa) 1 puff QID INH Last administered on 07/27/16 12:24; Admin Dose 1 PUFF; Start 07/26/16 at 09:00 Ipratropium [place] (Atrovent Hfa) 1 puff QID INH Last administered on 12:24; Admin Dose 1 PUFF; Start 07/26/16 at 09:00 Salmeterol Xinafoate/ Fluticasone (Advair 250/50 Diskus) 1 inh BID INH Last administered on 07/27/16 08:41; Admin Dose 1 INH; Start 07/26/16 at 09:00 INEZ BECKWITH MD Jul 27, 2016 14:11
--- NOTE | 2016-07-27 17:40 | CONS ---
Date/Time of Note Date/Time of Note DATE: 07/27/16 TIME: 17:29 Consult Date/Type/Reason Admit Date/Time Jul 26, 2016 at 01:16 Initial Consult Date 07/26/16 Type of Consultation: hematology and oncology Reason for Consultation Esophageal cancer S/p concurrent chemoradiation. Ordering Provider: FARHAD MEYER MD Subjective SOB Worsening this afternoon. Positive I/O Objective Vital Signs Date Time Temp Pulse Resp B/P Pulse Ox O2 Delivery O2 Flow Rate FiO2 07/27/16 16:41 87 07/27/16 15:43 98.3 20 155/86 98 07/27/16 14:15 40 07/27/16 08:45 Nasal Cannula 4.0 Intake and Output 07/26/16 07/26/16 07/27/16 15:00 23:00 07:00 Intake Total 350 ml 1300 ml 1380 ml Output Total 1000 ml 1400 ml Balance 350 ml 300 ml -20 ml Results/Medications Result Diagram: 07/27/16 0602 07/27/16 0602 Results 24 hrs Laboratory Tests Test 07/26/16 18:45 07/27/16 06:02 Lactic Acid Level 3.0 H Anion Gap 10 Basophils # 0.0 Basophils % 0.0 Blood Urea Nitrogen 12 Calcium Level 8.5 Carbon Dioxide Level 32 H Chloride Level 102 Cholesterol Level 178 Cholesterol/HDL Ratio 2.3 Creatinine 0.52 L Eosinophils # 0.0 Eosinophils % 0.0 Glucose Level 129 HDL Cholesterol 77 Hematocrit 32.5 #L Hemoglobin 11.0 #L Hemoglobin A1c 5.2 LDL Cholesterol, Calculated 84 Lymphocytes # 0.2 L Lymphocytes % 4.0 L Magnesium Level 2.1 Mean Corpuscular Hemoglobin 30.6 Mean Corpuscular Hemoglobin Concent 33.8 Mean Corpuscular Volume 90.5 Mean Platelet Volume 9.7 Monocytes # 0.2 L Monocytes % 3.5 Neutrophils # 5.3 Neutrophils % 91.8 H Nucleated Red Blood Cells # 0.0 Nucleated Red Blood Cells % 0.0 Phosphorus Level 3.2 Platelet Count 151 # Potassium Level 3.5 Red Blood Count 3.59 #L Red Cell Distribution Width 12.2 Sodium Level 140 Thyroid Stimulating Hormone (TSH) 0.072 L Triglycerides Level 84 White Blood Count 5.8 # Medications Current Medications Ondansetron HCl (Zofran Inj) 4 mg Q6H PRN IV NAUSEA AND/OR VOMITING; Start at 03:00 Acetaminophen (Tylenol Tab) 650 mg Q6H PRN PO PAIN LEVEL 1-3 OR FEVER; Start at 03:00 Acetaminophen/ Hydrocodone Bitart ([place] (5/325)) 1 tab Q6H PRN PO MODERATE PAIN LEVEL 4-6; Start 07/26/16 at 03:00 Morphine Sulfate (morphine) 2 mg Q4H PRN IV SEVERE PAIN LEVEL 7-10 Last administered on 07/27/16 17:17; Admin Dose 2 MG; Start 07/26/16 at 03:00 Docusate Sodium (Colace) 100 mg Q12H PRN PO CONSTIPATION; Start 07/26/16 at 03: 00 Magnesium Hydroxide (Milk Of Mag) 30 ml DAILY PRN PO CONSTIPATION; Start at 03:00 Sodium Biphosphate/ Sodium Phosphate (Fleet Enema) 133 ml DAILY PRN [place] CONSTIPATION; Start 07/26/16 at 03:00 Heparin Sodium (Porcine) (Heparin (5000 Units/0.5 ml)) 5,000 unit Q12 SC Last administered on 07/27/16 08:41; Admin Dose 5,000 UNIT; Start 07/26/16 at 09:00 Lorazepam 0.5 mg 0.5 mg Q6H PRN IV ANXIETY Last administered on 07/27/16 15:51 ; Admin Dose 0.5 MG; Start 07/26/16 at 03:00 Sodium Chloride 1,000 ml @ 100 mls/hr Q10H IV Last administered on 07/27/16 08:49; Admin Dose 100 MLS/HR; Start 07/26/16 at 02:39 Piperacillin Sod/ Tazobactam Sod (Zosyn 3.375gm/ 100 ml (Pmx)) 100 ml @ 200 mls /hr Q6 IVPB Last administered on 07/27/16 17:17; Admin Dose 200 MLS/HR; Start 07/26/16 at 06:00 Hydralazine HCl (Apresoline) 10 mg Q6H PRN IV ELEVATED BLOOD PRESSURE; Start at 03:00 Nitroglycerin (Nitroglycerin (Sl Tab) 0.4 Mg) 1 tab Q5M PRN SL ANGINA; Start at 03:00 Fluticasone Propionate (Flonase 0.05% Nasal) 1 spray BID PRN NASAL stuffy nose ; Start 07/26/16 at 03:00 Guaifenesin/ Codeine Phosphate (Robitussin Ac Liquid Cup) 10 ml Q6H PRN PO for cough; Start 07/26/16 at 03:00 Ondansetron HCl (Zofran Tab) 8 mg Q8 PRN PO NAUSEA; Start 07/26/16 at 03:00 Pantoprazole (Protonix Tab) 40 mg DAILY@06 PO Last administered on 07/27/16 05 :38; Admin Dose 40 MG; Start 07/26/16 at 06:00 Prochlorperazine (Compazine) 10 mg Q6H PRN PO NAUSEA; Start 07/26/16 at 03:00 Tamsulosin HCl (Flomax) 0.4 mg BID PO Last administered on 07/27/16 08:39; Admin Dose 0.4 MG; Start 07/26/16 at 09:00 Phenol (Cepastat Lozenge) 1 lozenge Q4H PRN MT SORE THROAT; Start 07/26/16 at 03:00 Trazodone HCl (Desyrel) 100 mg QHS PO Last administered on 07/26/16 21:26; Admin Dose 100 MG; Start 07/26/16 at 21:00 Nicotine (Nicoderm 21 Mg/ 24hr) 1 patch DAILY TRANSDERM Last administered on 08:39; Admin Dose 1 PATCH; Start 07/26/16 at 09:00 Atorvastatin Calcium (Lipitor) 10 mg DAILY@21 PO Last administered on 21:25; Admin Dose 10 MG; Start 07/26/16 at 21:00 Albuterol (Ventolin Hfa) 1 puff QID INH Last administered on 07/27/16 17:16; Admin Dose 1 PUFF; Start 07/26/16 at 09:00 Ipratropium [place] (Atrovent Hfa) 1 puff QID INH Last administered on 17:16; Admin Dose 1 PUFF; Start 07/26/16 at 09:00 Salmeterol Xinafoate/ Fluticasone (Advair 250/50 Diskus) 1 inh BID INH Last administered on 3/21/17at 08:41; Admin Dose 1 INH; Start 07/26/16 at 09:00 Methylprednisolone Sodium Succinate (Solu-Medrol) 80 mg Q8H IV ; Start 07/27/16 at 20:00 Assessment/Plan Chief Complaint/Hosp Course 1. Shortness of breath. most likely secondary to combination of chronic obstructive pulmonary disease exacerbation and Sepsis 2. esophageal cancer S/p chemoradiation 2 months ago 3. History of high cholesterol. Continue statin. 4. History of smoking. Smoking cessation education and nicotine patch. 5. Benign prostatic hypertrophy. Continue the Flomax. 6. History of hypertensive 7. Sepsis. G+ cocci in clusters PLans: 1. SOB worsening this afternoon, positive I/O, chest xray STAT to rule out fluid overload. Recommend decreased IVF rate. 2. Repeat lactic acid in AM. 3. esophageal cancer S/p chemoradiation 2 months ago, Was scheduled for repeat PET CT and CT on 07/23/16. Patient missed appointment due to hospitalization. , patient needs to reschedule the PET CT and CT after discharge from hospital. Based on PET CT and CT result, will decide next management plans. Patient missed his appointment with thoracic surgeon as well, need reschedule after discharge. 4. continue ABX 5. Follow up [employer] for COPD 6. repeat blood culture on 07/29/16 7. other management per PMD Problems: FARHAD MEYER MD Jul 27, 2016 17:40
[2016-07-27] MEDS: traZODone 100 MG TAB PO SCH (20:53)
[2016-07-27] MEDS: ATORVASTATIN 10 MG TAB PO SCH (20:53)
[2016-07-28] VITALS (17 sets, daily range): BP systolic 128–182; BP diastolic 73–90; PULSE 60–100; RESP 19–20
[2016-07-28] MEDS: ALBUTEROL/IPRATROPIUM (NEB) 3 ML AMP HHN SCH ×5 (01:19→20:31)
[2016-07-28] MEDS: METHYLPREDNISOLONE 125 MG INJ IV SCH ×3 (03:53→20:35)
[2016-07-28] MEDS: LORAZEPAM 2 MG INJ IV PRN ×3 (04:10→16:18)
[2016-07-28] MEDS: PIPER-TAZO 3.375 GM IV (PMX) 100 ML IVPB SCH ×3 (05:32→19:06)
[2016-07-28] MEDS: PANTOPRAZOLE (EC) 40 MG TAB PO SCH (05:32)
--- NOTE | 2016-07-28 06:58 | RADRPT ---
PROCEDURE: XR Chest. CLINICAL INDICATION: Worsening shortness of breath TECHNIQUE: Portable single view of the chest COMPARISON: 07/26 FINDINGS: The heart size remains within normal limits. Again seen are changes of severe bullous emphysema. T here is a 9 mm nodular density projecting over the left upper lobe. No lung nodule is seen on CT fr om 04/16/2016 and this was not evident on the chest x-ray from yesterday. No focal infiltrate, pleu ral effusion, or overt congestive heart failure is seen. Degenerative change of the spine is seen. Aortic calcification. IMPRESSION: 9 mm nodular density projecting over the left upper lobe. This may be on the skin or outside the pa tient given lack of visualization on recent chest x-ray and CT examinations. RPTAT: [facility] Physician Gerardo Date Time Electronically viewed and signed by Kerry Duke Physician on 07/28/2016 06:58 BRINDA/
[2016-07-28] MEDS ORDERED: ATENOLOL 25 MG TAB PO SCH (09:00)
[2016-07-28] MEDS: TAMSULOSIN (SR) 0.4 MG CAP PO SCH ×2 (09:06→20:35)
[2016-07-28] MEDS: NICOTINE (21 MG/24 HR) PATCH TRANSDERM SCH (09:08)
[2016-07-28] MEDS: HEPARIN 5,000 UNIT/0.5 ML SYG SC SCH ×2 (09:08→20:40)
[2016-07-28] MEDS: SALMETEROL/FLUTICASONE 250/50 INHA INH SCH ×2 (09:14→20:37)
[2016-07-28] MEDS: IPRATROPIUM (HFA) 12.9 GM INHALER INH SCH ×4 (09:15→20:36)
[2016-07-28] MEDS: ALBUTEROL HFA 8 GM INHALER INH SCH ×4 (09:16→20:36)
[2016-07-28] MEDS: FLUTICASONE 0.05% 16 GM NAS SPRAY NASAL PRN (10:21)
[2016-07-28 10:48] LABS: ADD SCAN DIFF NO
[2016-07-28 10:54] LABS: ABNORMAL IP MESSAGE 1; HEMATOCRIT 35.3 % (42.0-52.0); HEMOGLOBIN 11.7 g/dl (14.0-18.0); LYMPHOCYTES # 0.1 10^3/ul (0.8-2.9); LYMPHOCYTES % 1.3 % (15.0-51.0); MEAN CORPUSCULAR HEMOGLOBIN 29.9 pg (29.0-33.0); MEAN CORPUSCULAR HGB CONC 33.1 g/dl (32.0-37.0); MEAN CORPUSCULAR VOLUME 90.3 fl (82.0-101.0); MEAN PLATELET VOLUME 9.1 fl (7.4-10.4); MONOCYTE # 0.5 10^3/ul (0.3-0.9); MONOCYTES % 5.3 % (0.0-11.0); NEUTROPHIL # 7.8 10^3/ul (1.6-7.5); NEUTROPHILS % 92.5 % (39.0-77.0); PLATELET COUNT 141 10^3/UL (140-415); RED BLOOD COUNT 3.91 10^6/ul (4.70-6.10); RED CELL DISTRIBUTION WIDTH 12.3 % (11.5-14.5); WHITE BLOOD COUNT 8.5 10^3/ul (4.8-10.8)
[2016-07-28 11:01] LABS: POTASSIUM 3.1 mmol/L (3.5-5.1)
[2016-07-28 11:04] LABS: CREATININE 0.58 mg/dl (0.61-1.24)
[2016-07-28 11:05] LABS: CALCIUM 8.6 mg/dl (8.4-10.2)
--- NOTE | 2016-07-28 12:12 | PN ---
Date/Time of Note Date/Time of Note DATE: 07/28/16 TIME: 12:03 Assessment/Plan VTE Prophylaxis VTE Prophylaxis Intervention: SCD's Lines/Catheters [facility] Peripheral IV Urinary Cath still in place: No Assessment/Plan Chief Complaint/Hosp Course ASSESSMENT AND PLAN: 1. Shortness of breath. most likely secondary to combination of chronic obstructive pulmonary disease exacerbation and history of esophageal cancer. Continue on breathing treatments , DuoNeb q. 4 hours around the clock, IV steroids, Solu-Medrol 125 mg q. 6 hours. Continue broad-spectrum antibiotics as well. Continue his home COPD medications including Ventolin HFA as well as cough medicines. Continue BiPAP as needed. 2. History of esophageal cancer. Continue to monitor for now. No present issues. 3. History of high cholesterol. Continue statin. 4. History of smoking. Smoking cessation education and nicotine patch. 5. Benign prostatic hypertrophy. Continue the Flomax. 6. History of hypertensive urgency. Continue home medication, placed the patient on hydralazine as needed 7. Sepsis. Lactic acid was elevated. Continue broad spectrum antibiotics and IV fluids. No fevers, however. 8. Gastrointestinal prophylaxis with PPI. 9. Deep venous thrombosis prophylaxis with heparin subcutaneously. Get PT consult as well and OT consult. Problems: Subjective 24 Hr Interval Summary Free Text/Dictation Patient continues to complain of having shortness of breath Minimal p.o. intake secondary to shortness of breath Has not been able to ambulate Exam/Review of Systems Vital Signs Vitals Vital Signs Date Time Temp Pulse Resp B/P Pulse Ox O2 Delivery O2 Flow Rate FiO2 07/28/16 11:05 85 96 40 07/28/16 07:50 97.7 20 148/81 07/28/16 07:49 4.0 07/28/16 04:20 Nasal Cannula Intake and Output 07/27/16 07/27/16 07/28/16 15:00 23:00 07:00 Intake Total 100 ml 2300 ml 320 ml Output Total 400 ml 1415 ml Balance 100 ml 1900 ml -1095 ml Exam General: The patient is underweight, Not in acute distress. HEENT: Atraumatic, normocephalic. The pupils are equal and round . Neck: Supple with full range of motion. Chest: Normal expansion of the thorax during inspiration Lungs: Bilateral upper lung wheezing Heart: Normal S1-S2, Regular rhythm and rate. Abdomen: Soft , nontender, nondistended , bowel sounds are present. Extremities: Normal to inspection, no edema no cyanosis Neurologic: Normal mental status,The patient is awake, alert and oriented . Results Result Diagram: 07/28/16 1018 07/28/16 1018 Results 24 hrs Laboratory Tests Test 07/28/16 10:18 White Blood Count 8.5 # Red Blood Count 3.91 L Hemoglobin 11.7 L Hematocrit 35.3 L Mean Corpuscular Volume 90.3 Mean Corpuscular Hemoglobin 29.9 Mean Corpuscular Hemoglobin Concent 33.1 Red Cell Distribution Width 12.3 Platelet Count 141 Mean Platelet Volume 9.1 Neutrophils % 92.5 H Lymphocytes % 1.3 L Monocytes % 5.3 Eosinophils % 0.0 Basophils % 0.0 Nucleated Red Blood Cells % 0.0 Neutrophils # 7.8 H Lymphocytes # 0.1 L Monocytes # 0.5 Eosinophils # 0.0 Basophils # 0.0 Nucleated Red Blood Cells # 0.0 Sodium Level 139 Potassium Level 3.1 L Chloride Level 97 Carbon Dioxide Level 36 H Anion Gap 9 Blood Urea Nitrogen 20 Creatinine 0.58 L Glucose Level 109 Calcium Level 8.6 Medications Medications Current Medications Ondansetron HCl (Zofran Inj) 4 mg Q6H PRN IV NAUSEA AND/OR VOMITING; Start at 03:00 Acetaminophen (Tylenol Tab) 650 mg Q6H PRN PO PAIN LEVEL 1-3 OR FEVER; Start at 03:00 Acetaminophen/ Hydrocodone Bitart ([place] (5/325)) 1 tab Q6H PRN PO MODERATE PAIN LEVEL 4-6; Start 07/26/16 at 03:00 Morphine Sulfate (morphine) 2 mg Q4H PRN IV SEVERE PAIN LEVEL 7-10 Last administered on 07/27/16t 17:17; Admin Dose 2 MG; Start 07/26/16 at 03:00 Docusate Sodium (Colace) 100 mg Q12H PRN PO CONSTIPATION; Start 07/26/16 at 03: 00 Magnesium Hydroxide (Milk Of Mag) 30 ml DAILY PRN PO CONSTIPATION; Start at 03:00 Sodium Biphosphate/ Sodium Phosphate (Fleet Enema) 133 ml DAILY PRN [place] CONSTIPATION; Start 07/26/16 at 03:00 Heparin Sodium (Porcine) (Heparin (5000 Units/0.5 ml)) 5,000 unit Q12 SC Last administered on 07/28/16 09:08; Admin Dose 5,000 UNIT; Start 07/26/16 at 09:00 Lorazepam 0.5 mg 0.5 mg Q6H PRN IV ANXIETY Last administered on 07/28/16 10:13 ; Admin Dose 0.5 MG; Start 07/26/16 at 03:00 Piperacillin Sod/ Tazobactam Sod (Zosyn 3.375gm/ 100 ml (Pmx)) 100 ml @ 200 mls /hr Q6 IVPB Last administered on 07/28/16 11:31; Admin Dose 200 MLS/HR; Start 07/26/16 at 06:00 Hydralazine HCl (Apresoline) 10 mg Q6H PRN IV ELEVATED BLOOD PRESSURE Last administered on 07/28/16 03:53; Admin Dose 10 MG; Start 07/26/16 at 03:00 Nitroglycerin (Nitroglycerin (Sl Tab) 0.4 Mg) 1 tab Q5M PRN SL ANGINA; Start at 03:00 Fluticasone Propionate (Flonase 0.05% Nasal) 1 spray BID PRN NASAL stuffy nose Last administered on 07/28/16 10:21; Admin Dose 1 SPRAY; Start 07/26/16 at 03: 00 Guaifenesin/ Codeine Phosphate (Robitussin Ac Liquid Cup) 10 ml Q6H PRN PO for cough; Start 07/26/16 at 03:00 Ondansetron HCl (Zofran Tab) 8 mg Q8 PRN PO NAUSEA; Start 07/26/16 at 03:00 Pantoprazole (Protonix Tab) 40 mg DAILY@06 PO Last administered on 07/28/16 05 :32; Admin Dose 40 MG; Start 07/26/16 at 06:00 Prochlorperazine (Compazine) 10 mg Q6H PRN PO NAUSEA; Start 07/26/16 at 03:00 Tamsulosin HCl (Flomax) 0.4 mg BID PO Last administered on 07/28/16 09:06; Admin Dose 0.4 MG; Start 07/26/16 at 09:00 Phenol (Cepastat Lozenge) 1 lozenge Q4H PRN [place] SORE THROAT; Start 07/26/16 at 03:00 Trazodone HCl (Desyrel) 100 mg QHS PO Last administered on 07/27/16 20:53; Admin Dose 100 MG; Start 07/26/16 at 21:00 Nicotine (Nicoderm 21 Mg/ 24hr) 1 patch DAILY TRANSDERM Last administered on 09:08; Admin Dose 1 PATCH; Start 07/26/16 at 09:00 Atorvastatin Calcium (Lipitor) 10 mg DAILY@21 PO Last administered on 20:53; Admin Dose 10 MG; Start 07/26/16 at 21:00 Albuterol (Ventolin Hfa) 1 puff QID INH Last administered on 07/28/16 09:16; Admin Dose 1 PUFF; Start 07/26/16 at 09:00 Ipratropium [place] (Atrovent Hfa) 1 puff QID INH Last administered on 09:15; Admin Dose 1 PUFF; Start 07/26/16 at 09:00 Salmeterol Xinafoate/ Fluticasone (Advair 250/50 Diskus) 1 inh BID INH Last administered on 07/28/16 09:14; Admin Dose 1 INH; Start 07/26/16 at 09:00 Methylprednisolone Sodium Succinate (Solu-Medrol) 80 mg Q8H IV Last administered on 07/28/16 11:31; Admin Dose 80 MG; Start 07/27/16 at 20:00 Atenolol (Tenormin) 25 mg DAILY PO Last administered on 07/28/16 09:06; Admin Dose 25 MG; Start 07/28/16 at 09:00 INEZ BECKWITH MD Jul 28, 2016 12:12
[2016-07-28] MEDS: morphine 2 MG INJ IV PRN (14:48)
[2016-07-28] MEDS: MAGNESIUM HYDROXIDE 30ML CUP PO PRN (16:13)
--- NOTE | 2016-07-28 19:29 | CONS ---
Date/Time of Note Date/Time of Note DATE: 07/28/16 TIME: 19:28 Consult Date/Type/Reason Admit Date/Time Jul 26, 2016 at 01:16 Initial Consult Date 07/26/16 Type of Consultation: hematology and oncology Reason for Consultation esophageal SCC Ordering Provider: FARHAD MEYER MD Subjective SOB is improved Objective Vital Signs Date Time Temp Pulse Resp B/P Pulse Ox O2 Delivery O2 Flow Rate FiO2 07/28/16 18:22 98 25 94 Nasal Cannula 4.0 07/28/16 16:24 98.2 150/90 07/28/16 11:05 40 Intake and Output 07/27/16 07/27/16 07/28/16 15:00 23:00 07:00 Intake Total 100 ml 2300 ml 320 ml Output Total 400 ml 1415 ml Balance 100 ml 1900 ml -1095 ml Results/Medications Result Diagram: 07/28/16 1018 07/28/16 1018 Results 24 hrs Laboratory Tests Test 07/28/16 10:18 07/28/16 17:50 White Blood Count 8.5 # Red Blood Count 3.91 L Hemoglobin 11.7 L Hematocrit 35.3 L Mean Corpuscular Volume 90.3 Mean Corpuscular Hemoglobin 29.9 Mean Corpuscular Hemoglobin Concent 33.1 Red Cell Distribution Width 12.3 Platelet Count 141 Mean Platelet Volume 9.1 Neutrophils % 92.5 H Lymphocytes % 1.3 L Monocytes % 5.3 Eosinophils % 0.0 Basophils % 0.0 Nucleated Red Blood Cells % 0.0 Neutrophils # 7.8 H Lymphocytes # 0.1 L Monocytes # 0.5 Eosinophils # 0.0 Basophils # 0.0 Nucleated Red Blood Cells # 0.0 Sodium Level 139 Potassium Level 3.1 L Chloride Level 97 Carbon Dioxide Level 36 H Anion Gap 9 Blood Urea Nitrogen 20 Creatinine 0.58 L Glucose Level 109 Calcium Level 8.6 Lactic Acid Level 1.0 Medications Current Medications Ondansetron HCl (Zofran Inj) 4 mg Q6H PRN IV NAUSEA AND/OR VOMITING; Start at 03:00 Acetaminophen (Tylenol Tab) 650 mg Q6H PRN PO PAIN LEVEL 1-3 OR FEVER; Start at 03:00 Acetaminophen/ Hydrocodone Bitart ([place] (5/325)) 1 tab Q6H PRN PO MODERATE PAIN LEVEL 4-6; Start 07/26/16 at 03:00 Morphine Sulfate (morphine) 2 mg Q4H PRN IV SEVERE PAIN LEVEL 7-10 Last administered on 07/28/16 14:48; Admin Dose 2 MG; Start 07/26/16 at 03:00 Docusate Sodium (Colace) 100 mg Q12H PRN PO CONSTIPATION; Start 07/26/16 at 03: 00 Magnesium Hydroxide (Milk Of Mag) 30 ml DAILY PRN PO CONSTIPATION Last administered on 07/28/16 16:13; Admin Dose 30 ML; Start 07/26/16 at 03:00 Sodium Biphosphate/ Sodium Phosphate (Fleet Enema) 133 ml DAILY PRN [place] CONSTIPATION; Start 07/26/16 at 03:00 Heparin Sodium (Porcine) (Heparin (5000 Units/0.5 ml)) 5,000 unit Q12 SC Last administered on 07/28/16 09:08; Admin Dose 5,000 UNIT; Start 07/26/16 at 09:00 Lorazepam 0.5 mg 0.5 mg Q6H PRN IV ANXIETY Last administered on 07/28/16 16:18 ; Admin Dose 0.5 MG; Start 07/26/16 at 03:00 Piperacillin Sod/ Tazobactam Sod (Zosyn 3.375gm/ 100 ml (Pmx)) 100 ml @ 200 mls /hr Q6 IVPB Last administered on 07/28/16 19:06; Admin Dose 200 MLS/HR; Start 07/26/16 at 06:00 Hydralazine HCl (Apresoline) 10 mg Q6H PRN IV ELEVATED BLOOD PRESSURE Last administered on 07/28/16 03:53; Admin Dose 10 MG; Start 07/26/16 at 03:00 Nitroglycerin (Nitroglycerin (Sl Tab) 0.4 Mg) 1 tab Q5M PRN SL ANGINA; Start at 03:00 Fluticasone Propionate (Flonase 0.05% Nasal) 1 spray BID PRN NASAL stuffy nose Last administered on 07/28/16 10:21; Admin Dose 1 SPRAY; Start 07/26/16 at 03: 00 Guaifenesin/ Codeine Phosphate (Robitussin Ac Liquid Cup) 10 ml Q6H PRN PO for cough Last administered on 07/28/16 17:21; Admin Dose 10 ML; Start 07/26/16 at 03:00 Ondansetron HCl (Zofran Tab) 8 mg Q8 PRN PO NAUSEA; Start 07/26/16 at 03:00 Pantoprazole (Protonix Tab) 40 mg DAILY@06 PO Last administered on 07/28/16 05 :32; Admin Dose 40 MG; Start 07/26/16 at 06:00 Prochlorperazine (Compazine) 10 mg Q6H PRN PO NAUSEA; Start 07/26/16 at 03:00 Tamsulosin HCl (Flomax) 0.4 mg BID PO Last administered on 07/28/16 09:06; Admin Dose 0.4 MG; Start 07/26/16 at 09:00 Phenol (Cepastat Lozenge) 1 lozenge Q4H PRN [place] SORE THROAT; Start 07/26/16 at 03:00 Trazodone HCl (Desyrel) 100 mg QHS PO Last administered on 07/27/16 20:53; Admin Dose 100 MG; Start 07/26/16 at 21:00 Nicotine (Nicoderm 21 Mg/ 24hr) 1 patch DAILY TRANSDERM Last administered on 09:08; Admin Dose 1 PATCH; Start 07/26/16 at 09:00 Atorvastatin Calcium (Lipitor) 10 mg DAILY@21 PO Last administered on 20:53; Admin Dose 10 MG; Start 07/26/16 at 21:00 Albuterol (Ventolin Hfa) 1 puff QID INH Last administered on 07/28/16 18:22; Admin Dose 1 PUFF; Start 07/26/16 at 09:00 Ipratropium [place] (Atrovent Hfa) 1 puff QID INH Last administered on 14:36; Admin Dose 1 PUFF; Start 07/26/16 at 09:00 Salmeterol Xinafoate/ Fluticasone (Advair 250/50 Diskus) 1 inh BID INH Last administered on 07/28/16 09:14; Admin Dose 1 INH; Start 07/26/16 at 09:00 Methylprednisolone Sodium Succinate (Solu-Medrol) 80 mg Q8H IV Last administered on 07/28/16 11:31; Admin Dose 80 MG; Start 07/27/16 at 20:00 Atenolol (Tenormin) 25 mg DAILY PO Last administered on 07/28/16 09:06; Admin Dose 25 MG; Start 07/28/16 at 09:00 Assessment/Plan Chief Complaint/Hosp Course 1. Shortness of breath. most likely secondary to combination of chronic obstructive pulmonary disease exacerbation and Sepsis 2. esophageal cancer S/p chemoradiation 2 months ago 3. History of high cholesterol. Continue statin. 4. History of smoking. Smoking cessation education and nicotine patch. 5. Benign prostatic hypertrophy. Continue the Flomax. 6. History of hypertensive 7. Sepsis. G+ cocci in clusters PLans: 1. . esophageal cancer S/p chemoradiation 2 months ago, Was scheduled for repeat PET CT and CT on 07/23/16. Patient missed appointment due to hospitalization. , patient needs to reschedule the PET CT and CT after discharge from hospital. Based on PET CT and CT result, will decide next management plans. Patient missed his appointment with thoracic surgeon as well, need reschedule after discharge. 2. continue ABX 3. 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 repeat blood culture on 07/29/16 5. other management per PMD Problems: FARHAD MEYER MD Jul 28, 2016 19:29
[2016-07-28] MEDS: traZODone 100 MG TAB PO SCH (20:35)
[2016-07-28] MEDS: ATORVASTATIN 10 MG TAB PO SCH (20:35)
[2016-07-28] MEDS: ATENOLOL 25 MG TAB PO SCH (21:47)
[2016-07-28] MEDS: HYDROCODONE/APAP (5/325) TAB PO PRN (21:47)
[2016-07-29] VITALS (19 sets, daily range): BP systolic 134–179; BP diastolic 78–92; PULSE 63–80; RESP 18–22
[2016-07-29] MEDS: PIPER-TAZO 3.375 GM IV (PMX) 100 ML IVPB SCH ×5 (00:36→23:50)
[2016-07-29] MEDS: ALBUTEROL/IPRATROPIUM (NEB) 3 ML AMP HHN SCH ×6 (01:09→20:10)
[2016-07-29] MEDS: METHYLPREDNISOLONE 125 MG INJ IV SCH ×3 (04:26→20:35)
[2016-07-29] MEDS: LORAZEPAM 2 MG INJ IV PRN ×4 (04:26→23:50)
[2016-07-29] MEDS: PANTOPRAZOLE (EC) 40 MG TAB PO SCH (05:47)
[2016-07-29] MEDS: SALMETEROL/FLUTICASONE 250/50 INHA INH SCH ×2 (08:16→20:40)
[2016-07-29] MEDS: IPRATROPIUM (HFA) 12.9 GM INHALER INH SCH ×4 (08:17→20:40)
[2016-07-29] MEDS: ALBUTEROL HFA 8 GM INHALER INH SCH ×4 (08:18→20:39)
[2016-07-29] MEDS: TAMSULOSIN (SR) 0.4 MG CAP PO SCH ×2 (08:20→20:36)
[2016-07-29] MEDS: ATENOLOL 25 MG TAB PO SCH ×2 (08:20→20:36)
[2016-07-29] MEDS: NICOTINE (21 MG/24 HR) PATCH TRANSDERM SCH (08:20)
[2016-07-29] MEDS: MAGNESIUM HYDROXIDE 30ML CUP PO PRN ×2 (10:04→20:42)
[2016-07-29] MEDS: HEPARIN 5,000 UNIT/0.5 ML SYG SC SCH ×2 (10:06→20:38)
[2016-07-29] MEDS: morphine 2 MG INJ IV PRN (10:09)
[2016-07-29 10:32] LABS: ADD SCAN DIFF NO
[2016-07-29 10:44] LABS: ABNORMAL IP MESSAGE 1; HEMATOCRIT 36.8 % (42.0-52.0); HEMOGLOBIN 12.4 g/dl (14.0-18.0); LYMPHOCYTES # 0.1 10^3/ul (0.8-2.9); LYMPHOCYTES % 1.2 % (15.0-51.0); MEAN CORPUSCULAR HEMOGLOBIN 30.5 pg (29.0-33.0); MEAN CORPUSCULAR HGB CONC 33.7 g/dl (32.0-37.0); MEAN CORPUSCULAR VOLUME 90.4 fl (82.0-101.0); MEAN PLATELET VOLUME 9.4 fl (7.4-10.4); MONOCYTE # 0.3 10^3/ul (0.3-0.9); MONOCYTES % 3.7 % (0.0-11.0); NEUTROPHIL # 7.7 10^3/ul (1.6-7.5); NEUTROPHILS % 94.4 % (39.0-77.0); PLATELET COUNT 150 10^3/UL (140-415); RED BLOOD COUNT 4.07 10^6/ul (4.70-6.10); RED CELL DISTRIBUTION WIDTH 11.9 % (11.5-14.5); WHITE BLOOD COUNT 8.2 10^3/ul (4.8-10.8)
[2016-07-29 10:51] LABS: POTASSIUM 3.7 mmol/L (3.5-5.1)
[2016-07-29 10:54] LABS: CREATININE 0.66 mg/dl (0.61-1.24)
[2016-07-29 10:55] LABS: CALCIUM 8.7 mg/dl (8.4-10.2)
[2016-07-29] MEDS: FLUTICASONE 0.05% 16 GM NAS SPRAY NASAL PRN (11:38)
--- NOTE | 2016-07-29 11:38 | PDOCDIS ---
Discharge Instructions CONDITION Patient Condition: Fair HOME CARE INSTRUCTIONS: Special Diet: 2g na 1800 INEZ Humphrey MD Jul 29, 2016 11:38
[2016-07-29] MEDS ORDERED: [UNRECOGNIZED DRUG - CODE] IV (11:44)
[2016-07-29] MEDS ORDERED: NICO1PAT6 TRANSDERM (11:44)
[2016-07-29] MEDS ORDERED: HEP5KI SC (11:44)
[2016-07-29] MEDS ORDERED: TEN25 PO (11:44)
--- NOTE | 2016-07-29 11:55 | PN ---
Date/Time of Note Date/Time of Note DATE: 07/29/16 TIME: 11:53 Assessment/Plan VTE Prophylaxis VTE Prophylaxis Intervention: heparin Lines/Catheters IV C[facility] Type (from [facility] [place] Urinary Cath still in place: No Assessment/Plan Chief Complaint/Hosp Course ASSESSMENT AND PLAN: 1. Shortness of breath. most likely secondary to combination of chronic obstructive pulmonary disease exacerbation and history of esophageal cancer. Continue on breathing treatments , DuoNeb q. 4 hours around the clock, IV steroids, Solu-Medrol 125 mg q. 6 hours. Continue broad-spectrum antibiotics as well. Continue his home COPD medications including Ventolin HFA as well as cough medicines. Continue BiPAP as needed. 2. History of esophageal cancer. Continue to monitor for now. No present issues. 3. History of high cholesterol. Continue statin. 4. History of smoking. Smoking cessation education and nicotine patch. 5. Benign prostatic hypertrophy. Continue the Flomax. 6. History of hypertensive urgency. Continue home medication, placed the patient on hydralazine as needed 7. Sepsis. Resolved lactic acid was elevated likely reactive secondary to COPD exacerbation. Continue broad spectrum antibiotics and IV fluids. No fevers, however. 8. Gastrointestinal prophylaxis with PPI. 9. Deep venous thrombosis prophylaxis with heparin subcutaneously. Get PT consult as well and OT consult. Plan to [facility] when accepted Problems: Subjective 24 Hr Interval Summary Free Text/Dictation Patient continues to complain of shortness of breath Minimal p.o. intake secondary to shortness of breath Minimal ambulation No nausea vomiting diarrhea Exam/Review of Systems Vital Signs Vitals Vital Signs Date Time Temp Pulse Resp B/P Pulse Ox O2 Delivery O2 Flow Rate FiO2 07/29/16 09:17 76 94 40 07/29/16 07:56 98.0 18 179/90 07/29/16 05:14 Nasal Cannula 4.0 Intake and Output 07/28/16 07/28/16 07/29/16 15:00 23:00 07:00 Intake Total 240 ml 400 ml Output Total 600 ml 700 ml Balance -360 ml -300 ml Exam General: The patient is underweight, Not in acute distress. HEENT: Atraumatic, normocephalic. The pupils are equal and round . Neck: Supple with full range of motion. Chest: Normal Lungs: Decreased breath sounds bilateral lower lung field, poor air entry Heart: Normal S1-S2, Regular rhythm and rate. Abdomen: Soft , nontender, nondistended , bowel sounds are present. Extremities: Normal to inspection, no edema no cyanosis Neurologic: Normal mental status,The patient is awake, alert and oriented . Results Result Diagram: 07/29/16 1001 07/29/16 1001 Results 24 hrs Laboratory Tests Test 07/28/16 17:50 07/29/16 10:01 Lactic Acid Level 1.0 White Blood Count 8.2 Red Blood Count 4.07 L Hemoglobin 12.4 L Hematocrit 36.8 L Mean Corpuscular Volume 90.4 Mean Corpuscular Hemoglobin 30.5 Mean Corpuscular Hemoglobin Concent 33.7 Red Cell Distribution Width 11.9 Platelet Count 150 Mean Platelet Volume 9.4 Neutrophils % 94.4 H Lymphocytes % 1.2 L Monocytes % 3.7 Eosinophils % 0.0 Basophils % 0.0 Nucleated Red Blood Cells % 0.0 Neutrophils # 7.7 H Lymphocytes # 0.1 L Monocytes # 0.3 Eosinophils # 0.0 Basophils # 0.0 Nucleated Red Blood Cells # 0.0 Sodium Level 139 Potassium Level 3.7 Chloride Level 97 Carbon Dioxide Level 38 H Anion Gap 8 Blood Urea Nitrogen 26 H Creatinine 0.66 Glucose Level 124 Calcium Level 8.7 Medications Medications Current Medications Ondansetron HCl (Zofran Inj) 4 mg Q6H PRN IV NAUSEA AND/OR VOMITING; Start at 03:00 Acetaminophen (Tylenol Tab) 650 mg Q6H PRN PO PAIN LEVEL 1-3 OR FEVER; Start at 03:00 Acetaminophen/ Hydrocodone Bitart ([place] (5/325)) 1 tab Q6H PRN PO MODERATE PAIN LEVEL 4-6 Last administered on 07/28/16 21:47; Admin Dose 1 TAB; Start at 03:00 Morphine Sulfate (morphine) 2 mg Q4H PRN IV SEVERE PAIN LEVEL 7-10 Last administered on 07/29/16 10:09; Admin Dose 2 MG; Start 07/26/16 at 03:00 Docusate Sodium (Colace) 100 mg Q12H PRN PO CONSTIPATION; Start 07/26/16 at 03: 00 Magnesium Hydroxide (Milk Of Mag) 30 ml DAILY PRN PO CONSTIPATION Last administered on 07/29/16 10:04; Admin Dose 30 ML; Start 07/26/16 at 03:00 Sodium Biphosphate/ Sodium Phosphate (Fleet Enema) 133 ml DAILY PRN [place] CONSTIPATION; Start 07/26/16 at 03:00 Heparin Sodium (Porcine) (Heparin (5000 Units/0.5 ml)) 5,000 unit Q12 SC Last administered on 07/29/16 10:06; Admin Dose 5,000 UNIT; Start 07/26/16 at 09:00 Lorazepam 0.5 mg 0.5 mg Q6H PRN IV ANXIETY Last administered on 07/29/16 11:32 ; Admin Dose 0.5 MG; Start 07/26/16 at 03:00 Piperacillin Sod/ Tazobactam Sod (Zosyn 3.375gm/ 100 ml (Pmx)) 100 ml @ 200 mls /hr Q6 IVPB Last administered on 07/29/16 11:32; Admin Dose 200 MLS/HR; Start 07/26/16 at 06:00 Hydralazine HCl (Apresoline) 10 mg Q6H PRN IV ELEVATED BLOOD PRESSURE Last administered on 07/28/16 03:53; Admin Dose 10 MG; Start 07/26/16 at 03:00 Nitroglycerin (Nitroglycerin (Sl Tab) 0.4 Mg) 1 tab Q5M PRN SL ANGINA; Start at 03:00 Fluticasone Propionate (Flonase 0.05% Nasal) 1 spray BID PRN NASAL stuffy nose Last administered on 07/29/16 11:38; Admin Dose 1 SPRAY; Start 07/26/16 at 03: 00 Guaifenesin/ Codeine Phosphate (Robitussin Ac Liquid Cup) 10 ml Q6H PRN PO for cough Last administered on 07/28/16 17:21; Admin Dose 10 ML; Start 07/26/16 at 03:00 Ondansetron HCl (Zofran Tab) 8 mg Q8 PRN PO NAUSEA; Start 07/26/16 at 03:00 Pantoprazole (Protonix Tab) 40 mg DAILY@06 PO Last administered on 07/29/16 05 :47; Admin Dose 40 MG; Start 07/26/16 at 06:00 Prochlorperazine (Compazine) 10 mg Q6H PRN PO NAUSEA; Start 07/26/16 at 03:00 Tamsulosin HCl (Flomax) 0.4 mg BID PO Last administered on 07/29/16 08:20; Admin Dose 0.4 MG; Start 07/26/16 at 09:00 Phenol (Cepastat Lozenge) 1 lozenge Q4H PRN [place] SORE THROAT; Start 07/26/16 at 03:00 Trazodone HCl (Desyrel) 100 mg QHS PO Last administered on 07/28/16 20:35; Admin Dose 100 MG; Start 07/26/16 at 21:00 Nicotine (Nicoderm 21 Mg/ 24hr) 1 patch DAILY TRANSDERM Last administered on 08:20; Admin Dose 1 PATCH; Start 07/26/16 at 09:00 Atorvastatin Calcium (Lipitor) 10 mg DAILY@21 PO Last administered on 20:35; Admin Dose 10 MG; Start 07/26/16 at 21:00 Albuterol (Ventolin Hfa) 1 puff QID INH Last administered on 07/29/16 08:18; Admin Dose 1 PUFF; Start 07/26/16 at 09:00 Ipratropium [place] (Atrovent Hfa) 1 puff QID INH Last administered on 08:17; Admin Dose 1 PUFF; Start 07/26/16 at 09:00 Salmeterol Xinafoate/ Fluticasone (Advair 250/50 Diskus) 1 inh BID INH Last administered on 07/29/16 08:16; Admin Dose 1 INH; Start 07/26/16 at 09:00 Methylprednisolone Sodium Succinate (Solu-Medrol) 80 mg Q8H IV Last administered on 07/29/16 11:31; Admin Dose 80 MG; Start 07/27/16 at 20:00 Atenolol (Tenormin) 25 mg BID PO Last administered on 07/29/16 08:20; Admin Dose 25 MG; Start 07/28/16 at 21:00 INEZ BECKWITH MD Jul 29, 2016 11:55
--- NOTE | 2016-07-29 18:13 | CONS ---
Date/Time of Note Date/Time of Note DATE: 07/29/16 TIME: 18:13 Consult Date/Type/Reason Admit Date/Time Jul 26, 2016 at 01:16 Initial Consult Date 07/26/16 Type of Consultation: hematology and oncology Reason for Consultation Esophageal cancer Ordering Provider: FARHAD MEYER MD Subjective persistent SOB. SpO2 91% on RA. on bipap on and off. Objective Vital Signs Date Time Temp Pulse Resp B/P Pulse Ox O2 Delivery O2 Flow Rate FiO2 07/29/16 17:50 78 94 40 07/29/16 17:39 28 07/29/16 15:39 98.0 159/78 07/29/16 13:43 Nasal Cannula 6.0 Intake and Output 07/28/16 07/28/16 07/29/16 15:00 23:00 07:00 Intake Total 240 ml 400 ml Output Total 600 ml 700 ml Balance -360 ml -300 ml Results/Medications Result Diagram: 07/29/16 1001 07/29/16 1001 Results 24 hrs Laboratory Tests Test 07/29/16 10:01 White Blood Count 8.2 Red Blood Count 4.07 L Hemoglobin 12.4 L Hematocrit 36.8 L Mean Corpuscular Volume 90.4 Mean Corpuscular Hemoglobin 30.5 Mean Corpuscular Hemoglobin Concent 33.7 Red Cell Distribution Width 11.9 Platelet Count 150 Mean Platelet Volume 9.4 Neutrophils % 94.4 H Lymphocytes % 1.2 L Monocytes % 3.7 Eosinophils % 0.0 Basophils % 0.0 Nucleated Red Blood Cells % 0.0 Neutrophils # 7.7 H Lymphocytes # 0.1 L Monocytes # 0.3 Eosinophils # 0.0 Basophils # 0.0 Nucleated Red Blood Cells # 0.0 Sodium Level 139 Potassium Level 3.7 Chloride Level 97 Carbon Dioxide Level 38 H Anion Gap 8 Blood Urea Nitrogen 26 H Creatinine 0.66 Glucose Level 124 Calcium Level 8.7 Medications Current Medications Ondansetron HCl (Zofran Inj) 4 mg Q6H PRN IV NAUSEA AND/OR VOMITING; Start at 03:00 Acetaminophen (Tylenol Tab) 650 mg Q6H PRN PO PAIN LEVEL 1-3 OR FEVER; Start at 03:00 Acetaminophen/ Hydrocodone Bitart ([place] (5/325)) 1 tab Q6H PRN PO MODERATE PAIN LEVEL 4-6 Last administered on 07/28/16 21:47; Admin Dose 1 TAB; Start at 03:00 Morphine Sulfate (morphine) 2 mg Q4H PRN IV SEVERE PAIN LEVEL 7-10 Last administered on 07/29/16 10:09; Admin Dose 2 MG; Start 07/26/16 at 03:00 Docusate Sodium (Colace) 100 mg Q12H PRN PO CONSTIPATION; Start 07/26/16 at 03: 00 Magnesium Hydroxide (Milk Of Mag) 30 ml DAILY PRN PO CONSTIPATION Last administered on 07/29/16 10:04; Admin Dose 30 ML; Start 07/26/16 at 03:00 Sodium Biphosphate/ Sodium Phosphate (Fleet Enema) 133 ml DAILY PRN [place] CONSTIPATION; Start 07/26/16 at 03:00 Heparin Sodium (Porcine) 5000 unit 5,000 unit Q12 SC Last administered on 10:06; Admin Dose 5,000 UNIT; Start 07/26/16 at 09:00 Piperacillin Sod/ Tazobactam Sod (Zosyn 3.375gm/ 100 ml (Pmx)) 100 ml @ 200 mls /hr Q6 IVPB Last administered on 07/29/16 17:40; Admin Dose 200 MLS/HR; Start 07/26/16 at 06:00 Hydralazine HCl (Apresoline) 10 mg Q6H PRN IV ELEVATED BLOOD PRESSURE Last administered on 07/28/16 03:53; Admin Dose 10 MG; Start 07/26/16 at 03:00 Nitroglycerin (Nitroglycerin (Sl Tab) 0.4 Mg) 1 tab Q5M PRN SL ANGINA; Start at 03:00 Fluticasone Propionate (Flonase 0.05% Nasal) 1 spray BID PRN NASAL stuffy nose Last administered on 07/29/16 11:38; Admin Dose 1 SPRAY; Start 07/26/16 at 03: 00 Guaifenesin/ Codeine Phosphate (Robitussin Ac Liquid Cup) 10 ml Q6H PRN PO for cough Last administered on 07/28/16 17:21; Admin Dose 10 ML; Start 07/26/16 at 03:00 Ondansetron HCl (Zofran Tab) 8 mg Q8 PRN PO NAUSEA; Start 07/26/16 at 03:00 Pantoprazole (Protonix Tab) 40 mg DAILY@06 PO Last administered on 07/29/16 05 :47; Admin Dose 40 MG; Start 07/26/16 at 06:00 Prochlorperazine (Compazine) 10 mg Q6H PRN PO NAUSEA; Start 07/26/16 at 03:00 Tamsulosin HCl (Flomax) 0.4 mg BID PO Last administered on 07/29/16 08:20; Admin Dose 0.4 MG; Start 07/26/16 at 09:00 Phenol (Cepastat Lozenge) 1 lozenge Q4H PRN MT SORE THROAT; Start 07/26/16 at 03:00 Trazodone HCl (Desyrel) 100 mg QHS PO Last administered on 07/28/16 20:35; Admin Dose 100 MG; Start 07/26/16 at 21:00 Nicotine (Nicoderm 21 Mg/ 24hr) 1 patch DAILY TRANSDERM Last administered on 08:20; Admin Dose 1 PATCH; Start 07/26/16 at 09:00 Atorvastatin Calcium (Lipitor) 10 mg DAILY@21 PO Last administered on 20:35; Admin Dose 10 MG; Start 07/26/16 at 21:00 Albuterol (Ventolin Hfa) 1 puff QID INH Last administered on 07/29/16 17:37; Admin Dose 1 PUFF; Start 07/26/16 at 09:00 Ipratropium [place] (Atrovent Hfa) 1 puff QID INH Last administered on 17:37; Admin Dose 1 PUFF; Start 07/26/16 at 09:00 Salmeterol Xinafoate/ Fluticasone (Advair 250/50 Diskus) 1 inh BID INH Last administered on 07/29/16 08:16; Admin Dose 1 INH; Start 07/26/16 at 09:00 Methylprednisolone Sodium Succinate (Solu-Medrol) 80 mg Q8H IV Last administered on 07/29/16 11:31; Admin Dose 80 MG; Start 07/27/16 at 20:00 Atenolol (Tenormin) 25 mg BID PO Last administered on 3/23/17at 08:20; Admin Dose 25 MG; Start 07/28/16 at 21:00 Lorazepam (Ativan) 0.5 mg Q4 PRN IV ANXIETY; Start 07/29/16 at 16:30 Assessment/Plan Chief Complaint/Hosp Course 1. Shortness of breath. most likely secondary to combination of chronic obstructive pulmonary disease exacerbation and Sepsis, need to rule out PE or CHF as well. 2. esophageal cancer S/p chemoradiation 2 months ago 3. History of high cholesterol. Continue statin. 4. History of smoking. Smoking cessation education and nicotine patch. 5. Benign prostatic hypertrophy. Continue the Flomax. 6. History of hypertensive 7. Sepsis. G+ cocci in clusters PLans: 1. Patient has persistent SOB despite COPD treament. SpO2 91% on RA. Order CTA to rule out PE, 2D echocardiogram to rule out CHF 2. esophageal cancer S/p chemoradiation 2 months ago, Was scheduled for repeat PET CT and CT on 07/23/16. Patient missed appointment due to hospitalization. , patient needs to reschedule the PET CT and CT after discharge from hospital. Based on PET CT and CT result, will decide next management plans. Patient missed his appointment with thoracic surgeon as well, need reschedule after discharge. 3 continue ABX 4. Follow up coffee maker servicer for COPD management 5. Follow up repeat blood culture today 6. other management per PMD Problems: FARHAD MEYER MD Jul 29, 2016 18:13
[2016-07-29] MEDS: traZODone 100 MG TAB PO SCH (20:36)
[2016-07-29] MEDS: HYDROCODONE/APAP (5/325) TAB PO PRN (20:36)
[2016-07-29] MEDS: ATORVASTATIN 10 MG TAB PO SCH (20:37)
[2016-07-29] MEDS ORDERED: IOHEXOL 350MG/ML 50 ML BTL ONE (22:27)
[2016-07-29] MEDS ORDERED: IOHEXOL 100 ML ONE (22:27)
[2016-07-29] MEDS ORDERED: SOD CHLORIDE 0.9% 100 ML ONE (22:27)
[2016-07-30] VITALS (13 sets, daily range): BP systolic 149–155; BP diastolic 82–90; PULSE 62–74; RESP 19–20
[2016-07-30] MEDS: ALBUTEROL/IPRATROPIUM (NEB) 3 ML AMP HHN SCH ×5 (00:02→16:34)
--- NOTE | 2016-07-30 03:27 | RADRPT ---
PROCEDURE: CT angiogram of the chest with contrast. CLINICAL INDICATION: Chest pain. TECHNIQUE: CT angiogram of the chest was obtained using a multi-detector high-resolution CT. Con tiguous axial images were obtained during the dynamic injection of 80 cc of Omnipaque 350 intravenou s contrast. Coronal and sagittal reformatted images were obtained. 3-D reformatted images were als o obtained. Images were reviewed on a PACS workstation. One or more of the following dose reduction techniques were used: - Automated exposure control. - Adjustment of the mA and/or kV according to patient size. - Use of iterative reconstruction technique. Exam CTD/vol = 5.01 mGy. Total exam DLP = 223.30 mGy-cm. COMPARISON: 04/16/2016. FINDINGS: The main pulmonary artery followed to the segmental divisions are well opacified. There is no filli ng defect or evidence of pulmonary embolism. The heart is normal in size. There is no pericardial thickening or effusion. The aorta is of normal course and caliber with scattered atherosclerotic ca lcifications. There is no evidence of aortic aneurysm or dissection. There is no evidence of chest wall mass. The visualized thyroid is unremarkable. There are no enla rged axillary lymph nodes. There are no enlarged mediastinal or hilar lymph nodes by CT criteria. T here are extensive emphysematous changes bilaterally. There is no parenchymal nodule or consolidatio n. There is no pleural effusion. The central tracheobronchial tree is within normal limits. Limited evaluation of the upper abdomen demonstrates a right renal cyst. IMPRESSION: No evidence of pulmonary embolism or aortic dissection. Extensive emphysematous changes bilaterally. Vascular calcifications reflective of atherosclerosis. .Roberto Molina MD, MD Date Time Electronically viewed and signed by .Roberto Molina MD, MD on 07/30/2016 03:27 .T/
[2016-07-30] MEDS: METHYLPREDNISOLONE 125 MG INJ IV SCH ×2 (04:31→11:27)
[2016-07-30] MEDS: PANTOPRAZOLE (EC) 40 MG TAB PO SCH (05:42)
[2016-07-30] MEDS: PIPER-TAZO 3.375 GM IV (PMX) 100 ML IVPB SCH ×2 (05:42→11:25)
[2016-07-30] MEDS: LORAZEPAM 2 MG INJ IV PRN ×3 (06:55→16:41)
[2016-07-30 09:13] LABS: ADD SCAN DIFF NO
[2016-07-30 09:16] LABS: ABNORMAL IP MESSAGE 1; HEMATOCRIT 37.7 % (42.0-52.0); HEMOGLOBIN 12.5 g/dl (14.0-18.0); MEAN CORPUSCULAR HEMOGLOBIN 29.9 pg (29.0-33.0); MEAN CORPUSCULAR HGB CONC 33.2 g/dl (32.0-37.0); MEAN CORPUSCULAR VOLUME 90.2 fl (82.0-101.0); PLATELET COUNT 124 10^3/UL (140-415); RED BLOOD COUNT 4.18 10^6/ul (4.70-6.10); RED CELL DISTRIBUTION WIDTH 11.9 % (11.5-14.5); WHITE BLOOD COUNT 6.8 10^3/ul (4.8-10.8)
[2016-07-30 09:28] LABS: POTASSIUM 3.8 mmol/L (3.5-5.1)
[2016-07-30 09:31] LABS: CREATININE 0.56 mg/dl (0.61-1.24)
[2016-07-30 09:32] LABS: CALCIUM 8.6 mg/dl (8.4-10.2)
[2016-07-30] MEDS: TAMSULOSIN (SR) 0.4 MG CAP PO SCH (11:26)
[2016-07-30] MEDS: HYDROCODONE/APAP (5/325) TAB PO PRN ×2 (11:26→17:55)
[2016-07-30] MEDS: NICOTINE (21 MG/24 HR) PATCH TRANSDERM SCH (11:27)
[2016-07-30] MEDS: ATENOLOL 25 MG TAB PO SCH (11:27)
[2016-07-30] MEDS: SALMETEROL/FLUTICASONE 250/50 INHA INH SCH (11:32)
[2016-07-30] MEDS: ALBUTEROL HFA 8 GM INHALER INH SCH ×3 (11:33→17:00)
[2016-07-30 11:34] LABS: LYMPHOCYTES # 0.3 10^3/ul (0.8-2.9); MONOCYTE # 0.3 10^3/ul (0.3-0.9); NEUTROPHIL # 6.1 10^3/ul (1.6-7.5)
[2016-07-30] MEDS: FLUTICASONE 0.05% 16 GM NAS SPRAY NASAL PRN (11:35)
[2016-07-30] MEDS: IPRATROPIUM (HFA) 12.9 GM INHALER INH SCH ×3 (11:37→17:00)
[2016-07-30] MEDS: HEPARIN 5,000 UNIT/0.5 ML SYG SC SCH (11:41)
--- NOTE | 2016-07-30 12:26 | CONS ---
Date/Time of Note Date/Time of Note DATE: 07/30/16 TIME: 12:24 Assessment/Plan Assessment/Plan Additional Assessment/Plan CT chest was reviewed from yesterday which is showing bullous emphysema bilaterally no acute infiltrates identified no mass lesions identified negative for pulmonary embolism. Next Assessment recommendations; 1. Patient admitted for severe COPD exacerbation with very slow clinical improvement. 2. History of recent esophageal cancer status post RT and chemotherapy. 3. Stable hypertension. Continue current treatment. Continue BiPAP. Discontinue Zosyn. Consultation Date/Type/Reason Admit Date/Time Jul 26, 2016 at 01:16 Initial Consult Date 07/26/16 Type of Consultation: Pulmonary Referring Provider: FARHAD MEYER MD 24 HR Interval Summary Free Text/Dictation Patient condition has improved slightly. He denies any coughing, wheezing. Shortness of breath is improved. Patient currently on BiPAP. Addendum; elderly male, awake alert currently in no distress. Exam/Review of Systems Vital Signs Vitals Vital Signs Date Time Temp Pulse Resp B/P Pulse Ox O2 Delivery O2 Flow Rate FiO2 07/30/16 12:23 72 07/30/16 11:52 97.9 19 155/82 98 07/30/16 11:50 40 07/30/16 08:19 6.0 07/30/16 08:19 Nasal Cannula Intake and Output 07/29/16 07/29/16 07/30/16 15:00 23:00 07:00 Intake Total 100 ml 700 ml 500 ml Output Total 1100 ml 1200 ml Balance 100 ml -400 ml -700 ml Exam HEENT examination; supple neck, no JVD. No lymphadenopathy. Midline trachea. No thyromegaly. Chest examination; poor breath sound bilaterally. S1-S2 audible, no murmurs. Regular rhythm. No added sounds. Abdomen examination; soft, nondistended. No organomegaly. Bowel sounds audible. Extremity examination; no peripheral edema. Pulses 1+ bilaterally. CABLE TELEVISION TECHNICIAN examination; no focal deficit. Results Result Diagram: 07/30/16 0900 07/30/16 0900 Results 24 hrs Laboratory Tests Test 07/30/16 09:00 White Blood Count 6.8 Red Blood Count 4.18 L Hemoglobin 12.5 L Hematocrit 37.7 L Mean Corpuscular Volume 90.2 Mean Corpuscular Hemoglobin 29.9 Mean Corpuscular Hemoglobin Concent 33.2 Red Cell Distribution Width 11.9 Platelet Count 124 L Mean Platelet Volume 9.0 Neutrophils % 90.0 H Band Neutrophils % 2.0 Lymphocytes % 4.0 L Monocytes % 4.0 Neutrophils # 6.1 Lymphocytes # 0.3 L Monocytes # 0.3 Sodium Level 140 Potassium Level 3.8 Chloride Level 95 L Carbon Dioxide Level 39 H Anion Gap 10 Blood Urea Nitrogen 25 H Creatinine 0.56 L Glucose Level 122 Calcium Level 8.6 Medications Medications Current Medications Ondansetron HCl (Zofran Inj) 4 mg Q6H PRN IV NAUSEA AND/OR VOMITING; Start at 03:00 Acetaminophen (Tylenol Tab) 650 mg Q6H PRN PO PAIN LEVEL 1-3 OR FEVER; Start at 03:00 Acetaminophen/ Hydrocodone Bitart ([place] (5/325)) 1 tab Q6H PRN PO MODERATE PAIN LEVEL 4-6 Last administered on 07/30/16 11:26; Admin Dose 1 TAB; Start at 03:00 Morphine Sulfate (morphine) 2 mg Q4H PRN IV SEVERE PAIN LEVEL 7-10 Last administered on 07/29/16 10:09; Admin Dose 2 MG; Start 07/26/16 at 03:00 Docusate Sodium (Colace) 100 mg Q12H PRN PO CONSTIPATION; Start 07/26/16 at 03: 00 Magnesium Hydroxide (Milk Of Mag) 30 ml DAILY PRN PO CONSTIPATION Last administered on 07/29/16 20:42; Admin Dose 30 ML; Start 07/26/16 at 03:00 Sodium Biphosphate/ Sodium Phosphate (Fleet Enema) 133 ml DAILY PRN [place] CONSTIPATION; Start 07/26/16 at 03:00 Heparin Sodium (Porcine) 5000 unit 5,000 unit Q12 SC Last administered on 11:41; Admin Dose 5,000 UNIT; Start 07/26/16 at 09:00 Piperacillin Sod/ Tazobactam Sod (Zosyn 3.375gm/ 100 ml (Pmx)) 100 ml @ 200 mls /hr Q6 IVPB Last administered on 07/30/16 11:25; Admin Dose 200 MLS/HR; Start 07/26/16 at 06:00 Hydralazine HCl (Apresoline) 10 mg Q6H PRN IV ELEVATED BLOOD PRESSURE Last administered on 07/28/16 03:53; Admin Dose 10 MG; Start 07/26/16 at 03:00 Nitroglycerin (Nitroglycerin (Sl Tab) 0.4 Mg) 1 tab Q5M PRN SL ANGINA; Start at 03:00 Fluticasone Propionate (Flonase 0.05% Nasal) 1 spray BID PRN NASAL stuffy nose Last administered on 07/30/16 11:35; Admin Dose 1 SPRAY; Start 07/26/16 at 03: 00 Guaifenesin/ Codeine Phosphate (Robitussin Ac Liquid Cup) 10 ml Q6H PRN PO for cough Last administered on 07/28/16 17:21; Admin Dose 10 ML; Start 07/26/16 at 03:00 Ondansetron HCl (Zofran Tab) 8 mg Q8 PRN PO NAUSEA; Start 07/26/16 at 03:00 Pantoprazole (Protonix Tab) 40 mg DAILY@06 PO Last administered on 07/30/16 05 :42; Admin Dose 40 MG; Start 07/26/16 at 06:00 Prochlorperazine (Compazine) 10 mg Q6H PRN PO NAUSEA; Start 07/26/16 at 03:00 Tamsulosin HCl (Flomax) 0.4 mg BID PO Last administered on 07/30/16 11:26; Admin Dose 0.4 MG; Start 07/26/16 at 09:00 Phenol (Cepastat Lozenge) 1 lozenge Q4H PRN MT SORE THROAT; Start 07/26/16 at 03:00 Trazodone HCl (Desyrel) 100 mg QHS PO Last administered on 07/29/16 20:36; Admin Dose 100 MG; Start 07/26/16 at 21:00 Nicotine (Nicoderm 21 Mg/ 24hr) 1 patch DAILY TRANSDERM Last administered on 11:27; Admin Dose 1 PATCH; Start 07/26/16 at 09:00 Atorvastatin Calcium (Lipitor) 10 mg DAILY@21 PO Last administered on 20:37; Admin Dose 10 MG; Start 07/26/16 at 21:00 Albuterol (Ventolin Hfa) 1 puff QID INH Last administered on 07/30/16 11:33; Admin Dose 1 PUFF; Start 07/26/16 at 09:00 Ipratropium [place] (Atrovent Hfa) 1 puff QID INH Last administered on 11:37; Admin Dose 1 PUFF; Start 07/26/16 at 09:00 Salmeterol Xinafoate/ Fluticasone (Advair 250/50 Diskus) 1 inh BID INH Last administered on 07/30/16 11:32; Admin Dose 1 INH; Start 07/26/16 at 09:00 Methylprednisolone Sodium Succinate (Solu-Medrol) 80 mg Q8H IV Last administered on 07/30/16 11:27; Admin Dose 80 MG; Start 07/27/16 at 20:00 Atenolol (Tenormin) 25 mg BID PO Last administered on 07/30/16 11:27; Admin Dose 25 MG; Start 07/28/16 at 21:00 Lorazepam (Ativan) 0.5 mg Q4 PRN IV ANXIETY Last administered on 07/30/16 06: 55; Admin Dose 0.5 MG; Start 07/29/16 at 16:30 SPRING TURCIOS Jul 30, 2016 12:26
--- NOTE | 2016-07-30 15:45 | DS ---
DATE OF ADMISSION: 07/26/2016 DATE OF DISCHARGE: 07/30/2016 CONSULTANTS: 1. LUIS MEYER MD 2. SPRING TURCIOS MD. DISCHARGE DIAGNOSIS: 1. Esophageal cancer under the care of Dr. Luis Meyer, hematology/oncology. 2. Chronic obstructive pulmonary disease exacerbation. Continue breathing treatment, Solu-Medrol. 3. Dyslipidemia. Continue statin. 4. History of smoking cessation. Nicotine patch was placed. 5. Benign prostatic hypertrophy. 6. Hypertension urgency, resolved. 7. Sepsis, resolved. Lactic acid was elevated, likely reactive secondary to chronic obstructive pu lmonary disease exacerbation. 8. Malnutrition. MEDICATIONS: 1. Albuterol. 2. Combivent. 3. Atenolol. 4. Symbicort. 5. Flonase. 6. Robitussin. 7. Heparin. 8. Conger. 9. Lorazepam. 10. Solu-Medrol. 11. Nicotine patch. 12. Zofran 13. Protonix. 14. Pravastatin. 15. Prochlorperazine. 16. Flomax. 17. Spiriva. 18. Trazodone. ALLERGIES: NO KNOWN DRUG ALLERGIES. HOSPITAL COURSE: This is a 65-year-old gentleman with past medical history of esophageal cancer, hy pertension, BPH, COPD on home oxygen, dyslipidemia, history of smoking, hypertension who presented t [facility] 07/26/2016 secondary to having worsening of shortness of breath despi te using his inhaler and home oxygen. The patient upon arrival to ER, had a pH of 7.32, pCO2 of 67, pO2 of 345, bicarbonate 34. He was placed on BiPAP, IV steroids, breathing treatment and was admit martin to telemetry floor. Drilling Field Professional and marketing administrator/oncologist were consulted. Patient was cont inued on IV Solu-Medrol and breathing treatment was seen and evaluated by the gun tester and resp iratory therapy. His breathing status has been improving significantly. Patient still has been hav ing difficulty with ambulation secondary to shortness of breath. Regarding his asthma exacerbation, this is likely secondary to upper respiratory tract infection and bronchitis. He was placed on bro ad spectrum IV antibiotics. He is afebrile. WBC is within normal limits. In regard to his anxiety , the patient has been continued on home lorazepam. For his smoking dependency, he was placed on ni cotine patch. His blood pressure is well controlled on atenolol. I had a long conversation with Mr Rekha England regarding his disposition and he agreed to be placed at [facility] for further evaluation and treatment. CONDITION AT TIME OF DISCHARGE: Stable for [facility] placement. Dictated By: INEZ BECKWITH MD PN/NTS Conf#: [id number] DID#: [id number]
--- NOTE | 2016-07-30 16:03 | RADRPT ---
Echocardiogram Report Patient Name: KASH ASKEW Gender: Male Date: 08-Jan-1951 Study Date: 30-Jul-2016 Rental Sales Associate: Sade Emerson RDCS Location: [id number] Ref. Physician: FARHAD MEYER Quality: Technically Difficult Study Procedures: Transthoracic echocardiogram with complete 2D, M-Mode, and doppler examination. Indications: Congestive Heart Failure. Shortness of breath. 2D/M Mode Doppler Measurement Value Normal Ranges Measurement Value Normal Ranges LVIDd 2D 4.7 3.5 - 5.6 cm AV Peak Antony 1.0 m/sec LVIDs 2D 3.4 2.1 - 4.1 cm AV Peak PG 4.0 mmHg LVPWd 2D 0.7 0.6 - 1.1 cm LVOT Peak Antony 0.5 m/sec IVSd 2D 0.6 0.6 - 1.1 cm LVOT Peak PG 1.1 mmHg AoR Diam 2D 2.6 2.0 - 3.7 cm MV E Peak Antony 0.6 m/sec EDV 2D 104.4 cm3 MV A Peak Antony 0.6 m/sec ESV 2D 38.4 cm3 MV E/A 0.9 LA Dimen 2D 3.2 2.3 - 4.0 cm MV Decel Time 143 msec MV Decel [place] 4 MV E/A 0.9 TR Peak Antony 2.9 m/sec TR Peak PG 32.5 mmHg RVSP 36.0 mmHg Findings Left Ventricle: Normal left ventricular systolic function. Normal left ventricular cavity size. Normal left ventricular wall thickness. Ejection fraction is visually estimated at 65 %. Tissue Doppler/Mitral Doppler indices are consistent with impaired relaxation (Stage I diastolic dysfunction). Right Ventricle: Normal right ventricular size. Normal right ventricular systolic function. Left Atrium: The left atrium is normal in size. Right Atrium: The right atrium is normal in size. Mitral Valve: Normal appearance and function of the mitral valve with trace physiologic regurgitation. Aortic Valve: No hemodynamically significant aortic stenosis by doppler. Aortic cusps appear mildly calcified. Trace aortic valve regurgitation. Tricuspid Valve: Normal appearance of the tricuspid valve. Estimated peak PA systolic pressure 36 mmHg. There is mild tricuspid regurgitation. Pulmonic Valve: Pulmonic valve not well visualized. Pericardium: Normal pericardium with no significant pericardial effusion. Aorta: Normal aortic root. IVC: Normal size and normal respiratory collapse consistent with normal right atrial pressure. Conclusions 1.Normal left ventricular systolic function. Normal left ventricular cavity size. Normal left ventricular wall thickness. Ejection fraction is visually estimated at 65 %. Tissue Doppler/Mitral Doppler indices are consistent with impaired relaxation (Stage I diastolic dysfunction). 2.Normal appearance and function of the mitral valve with trace physiologic regurgitation. 3.No hemodynamically significant aortic stenosis by doppler. Aortic cusps appear mildly calcified. Trace aortic valve regurgitation. 4.Normal appearance of the tricuspid valve. Estimated peak PA systolic pressure 36 mmHg. There is mild tricuspid regurgitation. Electronically Signed By: Hyun Vargas 30-Jul-2016 16:03:22 -0700 Patient Name: KASH ASKEW Study Date: 30-Jul-2016 [id number]
== END 2016-07-30 19:16 | DRG 871 ==
LOC: EDBD → E/R 00:02 → TEL 01:16
PROVIDERS: ADMIT Hospitalist; ATTEND Hospitalist
PROC: 5A09557 Assistance with Respiratory Ventilation, Greater than 96 Consecutive Hours, Continuous Positive Airway Pressure (ICD-10-PCS; principal; 2016-07-26)
DX: A41.1 Sepsis due to other specified staphylococcus (principal); J96.92 Respiratory failure, unspecified with hypercapnia; J44.1 Chronic obstructive pulmonary disease with (acute) exacerbation; E46 Unspecified protein-calorie malnutrition; Z68.1 Body mass index [BMI] 19.9 or less, adult; Z99.81 Dependence on supplemental oxygen; F17.200 Nicotine dependence, unspecified, uncomplicated; I10 Essential (primary) hypertension; N40.0 Benign prostatic hyperplasia without lower urinary tract symptoms; E78.5 Hyperlipidemia, unspecified; I16.0 Hypertensive urgency
CPT/HCPCS: 36415; 36600; 71010; 71275; 80048; 80053; 80061; 81003; 82803; 83036; 83605; 83735; 84100; 84439; 84443; 84484; 85025; 85610; 85730; 87040; 87086; 93005; 93306; 94640; 94644; 94660; 94664; 94760; 96374; 96375; 96376; J0360; J0692; J1644; J2060; J2270; J2405; J2543; J2930; J3370; J7030; Q9967

== ENCOUNTER 2017-01-08 18:57 | Emergency (ER) | payer MEDICARE, OTHER ==
[~2017-01-08] VITALS: Ht 165.1 cm; Wt 50.9 kg
[~2017-01-08 18:57] MED LIST changes: +ATEN-138 PO; +HEP5KI SC; +NICO1PAT6 TRANSDERM; -PRED20TA PO; -ZOLP10TA PO; +[UNRECOGNIZED DRUG - CODE] IV
[2017-01-08 19:03] VITALS: Ht 165.1 cm; Wt 50.9 kg
[2017-01-08] MEDS ORDERED: ASPIRIN 81 MG TAB PO STA (19:35)
[2017-01-08 20:12] LABS: ABNORMAL IP MESSAGE 1; BASOPHILS % 0.2 % (0.0-2.0); HEMATOCRIT 34.9 % (42.0-52.0); HEMOGLOBIN 11.3 g/dl (14.0-18.0); LYMPHOCYTES # 0.4 10^3/ul (0.8-2.9); LYMPHOCYTES % 3.7 % (15.0-51.0); MEAN CORPUSCULAR HEMOGLOBIN 26.7 pg (29.0-33.0); MEAN CORPUSCULAR HGB CONC 32.4 g/dl (32.0-37.0); MEAN CORPUSCULAR VOLUME 82.5 fl (82.0-101.0); MEAN PLATELET VOLUME 9.4 fl (7.4-10.4); MONOCYTE # 0.6 10^3/ul (0.3-0.9); MONOCYTES % 6.4 % (0.0-11.0); NEUTROPHILS % 89.1 % (39.0-77.0); PLATELET COUNT 183 10^3/UL (140-415); POSITIVE DIFF @See below; RED BLOOD COUNT 4.23 10^6/ul (4.70-6.10); RED CELL DISTRIBUTION WIDTH 12.5 % (11.5-14.5)
[2017-01-08 20:26] LABS: INR 1.08; PT RATIO 1.1
[2017-01-08 20:27] LABS: PARTIAL THROMBOPLASTIN TIME 36.8 Sec (25.0-35.0)
[2017-01-08] MEDS ORDERED: ALBUTEROL 0.083% (NEB) 2.5 MG/3 ML AMP NEB STA ×2 (20:29→22:21)
[2017-01-08] MEDS ORDERED: IPRATROPIUM (NEB) 0.5 MG/2.5 ML AMP NEB STA ×2 (20:29→22:21)
[2017-01-08 20:32] LABS: ALANINE AMINOTRANSFERASE 35 IU/L (13-69); ALBUMIN 3.5 g/dl (3.3-4.9); ALBUMIN/GLOBULIN RATIO 1.25; ALKALINE PHOSPHATASE 83 IU/L (42-121); ANION GAP 10 (8-16); ASPARTATE AMINO TRANSFERASE 21 IU/L (15-46); BILIRUBIN,INDIRECT 0.3 mg/dl (0-1.1); BILIRUBIN,TOTAL 0.3 mg/dl (0.2-1.3); BLOOD UREA NITROGEN 15 mg/dl (7-20); CALCIUM 8.9 mg/dl (8.4-10.2); CARBON DIOXIDE 30 mmol/L (21-31); CHLORIDE 101 mmol/L (97-110); CREATININE 0.66 mg/dl (0.61-1.24); GLUCOSE 120 mg/dl (70-220); POTASSIUM 4.5 mmol/L (3.5-5.1); SODIUM 136 mmol/L (135-144); TOTAL PROTEIN 6.3 g/dl (6.1-8.1)
--- NOTE | 2017-01-08 20:40 | RADRPT ---
PROCEDURE: XR Chest. CLINICAL INDICATION: Chest pain. TECHNIQUE: Portable AP semi erect view of the chest was obtained. COMPARISON: 08/01/2016 FINDINGS: The cardiomediastinal silhouette is within normal limits. The lungs are clear but mildly hyperinfla martin with flattening of the diaphragm again noted, bullous changes in the left greater than right upp er lobe again seen. There is no evidence for pleural effusion, pneumothorax or pulmonary vascular c ongestion. The osseous structures are intact with no evidence for acute abnormality. RPTAT:HJJR IMPRESSION: Marked hyperinflation of the lungs is unchanged from 08/01/2016 consistent with chronic obstructive pulmonary disease without evidence of pneumonia. Physician Donato Date Time Electronically viewed and signed by Donaldo Tena Physician on 01/08/2017 20:40 JR/
[2017-01-08 20:51] LABS: TROPONIN-I < 0.012 ng/ml (0.00-0.12)
[2017-01-08] MEDS ORDERED: DEXAMETHASONE 10 MG/ML 1 ML INJ IV STA (22:21)
--- NOTE | 2017-01-08 22:29 | ERD ---
ER Documentation Chief Complaint Date/Time DATE: 01/08/17 TIME: 22:29 Chief Complaint CHEST PAIN 5/10 NON RADIATING, .4 NITRO SPRAY, 162MG ASN BY EMS HPI 66 year old male presenting with one week of dull left sided chest pain that is unprovoked, dull, nonradiating. He does endorses a history of COPD, esophageal CA s/p treatment, BPH, and now active liver masses, unknown if primary or mets. He has had worsening of his baseline shortness of breath and cough. Denies fever , chills, hemoptysis. He is normally on 2L O2 by [place] at his living facility. THe last time he had chest discomfort was yesterday. TOday he came in for evaluation. No leg swelling or pain, change in urination, or history of blood clots. ROS All systems reviewed and are negative except as per history of present illness. Medications Home Meds Active Scripts Levofloxacin* (Levaquin*) 750 Mg Tablet, 750 MG PO DAILY for 4 Days, TAB Prov:FAVIAN MCKENNA MD 01/09/17 Prednisone* (Prednisone*) 20 Mg Tab, 60 MG PO DAILY for 5 Days, TAB Prov:FAVIAN MCKENNA MD 01/09/17 Nicotine* (Nicotine* Patch) 21 mg/day Patch, 1 PATCH TRANSDERM DAILY for 1 Day Prov:INEZ BECKWITH MD 07/29/16 Methylprednisolone Sodium Succinate (Solu-Medrol) 125 Mg Soln, 80 MG IV Q8H for 1 Day Prov:INEZ BECKWITH MD 07/29/16 Heparin Sod (Porcine)* (Heparin*) 5,000 Unit/0.5 Ml Soln, 5000 UNIT SC Q12 for 1 Day Prov:INEZ BECKWITH MD 07/29/16 Atenolol (Tenormin) 25 Mg Tab, 25 MG PO BID for 1 Day, TAB Prov:INEZ BECKWITH MD 07/29/16 Albuterol/Ipratropium* (Combivent Respimat*) 20-100 Mcg/Inh - 4 Gm Aer.w.adap, 1 PUFF INHALATION QID, #1 INHALER Prov:TOM BARCLAY MD 04/20/16 Fluticasone Propionate* (Fluticasone Propionate* Nasal) 50 Mcg/[place] - 16 Gm [place].susp, 1 SPRAY NASAL BID Y for stuffy nose, #1 Prov:TOM BARCLAY MD 04/20/16 Throat Lozenges* (Cepastat*) 9 Jenn Lozenge, 1 LOZENGE MT Q4H Y for SORE THROAT for 30 Days, LOZENGE Prov:TOM BARCLAY MD 04/20/16 Guaifenesin-Codeine Phosphate* (Robitussin* AC) 5 Ml Syrup, 10 ML PO Q6H Y for for cough, #1 1 Refill Prov:TOM BARCLAY MD 04/20/16 Albuterol Sulfate* (Proair HFA*) 8.5 Gm Hfa.aer.ad, 2 PUFF INH Q4, #1 INHALER 2 Refills Prov:TOM BARCLAY MD 04/20/16 Budesonide-Formoterol Fumarate* (Symbicort*) 160-4.5 Hfa.aer.ad, 2 PUFF INHALATION BID, #1 EACH 2 Refills Prov:TOM BARCLAY MD 04/20/16 Tiotropium [place]* (Spiriva*) 18 Mcg Cap.w.dev, 1 CAP INHALATION DAILY, #30 CAP 2 Refills Prov:TOM BARCLAY MD 04/20/16 Trazodone Hcl* (Trazodone Hcl*) 100 Mg Tablet, 100 MG PO QHS, #30 TAB 2 Refills Prov:TOM BARCLAY MD 04/20/16 Lorazepam* (Lorazepam*) 1 Mg Tablet, 1 MG PO Q6 Y for ANXIETY, #60 TAB 2 Refills Prov:TOM BARCLAY MD 04/20/16 Tamsulosin Hcl* (Flomax*) 0.4 Mg Cap.er.24h, 0.4 MG PO BID for 30 Days, CAP 2 Refills Prov:TOM BARCLAY MD 04/20/16 Reported Medications Pantoprazole* (Protonix*) 40 Mg Tablet.dr, 40 MG PO DAILY, TAB 04/16/16 Pravastatin Sodium* (Pravastatin Sodium*) 20 Mg Tablet, 20 MG PO HS, TAB 04/16/16 Hydrocodone/Acetaminophen ([place] 5-325 Tablet) 1 Each Tablet, 1 EACH PO Q6H Y for PRN, TAB 04/16/16 Ondansetron Hcl* (Ondansetron Hcl*) 8 Mg Tablet, 8 MG PO Q8 Y for NAUSEA, TAB TAKE AFTHER CHEMO 1 DAY TID AND OTHER DAYS DAILY 04/16/16 Prochlorperazine* (Prochlorperazine*) 10 Mg Tablet, 10 MG PO Q6H Y for NAUSEA, TAB 04/16/16 Allergies Allergies: Coded Allergies: No Known Allergy (Unverified , 04/16/16) PMhx/Soc History of Surgery: Yes (hernia sx) Anesthesia Reaction: No Hx Neurological Disorder: No Hx Respiratory Disorders: Yes (COPD, emphysema) Hx Cardiac Disorders: Yes (HTN, CVA) Hx Psychiatric Problems: No (depression and anxiety) Hx Miscellaneous Medical Probl: Yes (LIVER CANCER, ENLARGED PROSTATE, ESOPHAGITIS CANCER) Hx Alcohol Use: No Hx Substance Use: No Hx Tobacco Use: Yes (OCCASIONAL) Smoking Status: Current some day smoker FmHx Family History: No diabetes Physical Exam Vitals Vital Signs Date Time Temp Pulse Resp B/P Pulse Ox O2 Delivery O2 Flow Rate FiO2 01/08/17 23:30 74 20 98 Nasal Cannula 2.0 28 01/08/17 23:30 98.0 67 18 113/59 98 Nasal Cannula 2.0 01/08/17 21:15 63 20 99 Nasal Cannula 2.0 28 01/08/17 21:00 98.0 62 18 102/51 99 Room Air 01/08/17 20:06 Nasal Cannula 2 01/08/17 19:03 97.2 68 18 99/61 95 Physical Exam Const: no apparent distress, nontoxic, speaking in full sentences Head: Atraumatic Eyes: Normal Conjunctiva ENT: Normal External Ears, Nose and Mouth. Neck: Full range of motion..~ No meningismus. Resp: diffuse expiratory wheezing, no rales or rhonchi Cardio: Regular rate and rhythm, no murmurs Abd: Soft, non tender, non distended. 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, strength and sensations intact Psych: Normal Mood and Affect Result Diagram: 01/08/17194401/08/171944 Results 24 hrs Laboratory Tests Test 01/08/17 19:45 White Blood Count 10.010^3/ul Red Blood Count 4.2310^6/ul Hemoglobin 11.3g/dl Hematocrit 34.9% Mean Corpuscular Volume 82.5fl Mean Corpuscular Hemoglobin 26.7pg Mean Corpuscular Hemoglobin Concent 32.4g/dl Red Cell Distribution Width 12.5% Platelet Count 94081^3/UL Mean Platelet Volume 9.4fl Neutrophils % 89.1% Lymphocytes % 3.7% Monocytes % 6.4% Eosinophils % 0.0% Basophils % 0.2% Nucleated Red Blood Cells % 0.0/100WBC Neutrophils # (Manual) 8.910^3/ul Lymphocytes # 0.410^3/ul Monocytes # 0.610^3/ul Eosinophils # 0.010^3/ul Basophils # 0.010^3/ul Nucleated Red Blood Cells # 0.010^3/ul Prothrombin Time 14.0Sec Prothrombin Time Ratio 1.1 INR International Normalized Ratio 1.08 Activated Partial Thromboplast Time 36.8Sec Sodium Level 136mmol/L Potassium Level 4.5mmol/L Chloride Level 101mmol/L Carbon Dioxide Level 30mmol/L Anion Gap 10 Blood Urea Nitrogen 15mg/dl Creatinine 0.66mg/dl Glucose Level 120mg/dl Calcium Level 8.9mg/dl Total Bilirubin 0.3mg/dl Direct Bilirubin 0.00mg/dl Indirect Bilirubin 0.3mg/dl Aspartate Amino Transf (AST/SGOT) 21IU/L Alanine Aminotransferase (ALT/SGPT) 35IU/L Alkaline Phosphatase 83IU/L Troponin I < 0.012ng/ml Total Protein 6.3g/dl Albumin 3.5g/dl Globulin 2.80g/dl Albumin/Globulin Ratio 1.25 Lipase 32U/L Current Medications Medications (Trade) Dose Ordered Sig/Josef Route PRN Reason Start Time Stop Time Status Last Admin Dose Admin Aspirin (Aspirin) 162 mg ONCE STAT PO 01/08/17 19:35 01/08/17 19:36 DC 01/08/17 20:21 Albuterol (Proventil 0.083% (Neb)) 5 mg ONCE STAT NEB 01/08/17 20:29 01/08/17 20:32 DC 01/08/17 21:18 Ipratropium [place] (Atrovent 0.02% (Neb)) 0.5 mg ONCE STAT NEB 01/08/17 20:29 01/08/17 20:32 DC 01/08/17 21:18 Albuterol (Proventil 0.083% (Neb)) 5 mg ONCE STAT NEB 01/08/17 22:21 01/08/17 22:23 DC 01/08/17 23:28 Ipratropium [place] (Atrovent 0.02% (Neb)) 0.5 mg ONCE STAT NEB 01/08/17 22:21 01/08/17 22:23 DC 01/08/17 23:28 Dexamethasone (Decadron) 10 mg ONCE STAT IV 01/08/17 22:21 01/08/17 22:23 DC 01/08/17 22:49 Levofloxacin (Levaquin) 750 mg ONCE ONCE PO 01/08/17 22:30 01/08/17 22:31 DC 01/08/17 22:46 IV Flush 10 ml 10 ml STK-MED ONCE .ROUTE 01/08/17 22:55 01/08/17 22:56 DC 01/08/17 23:20 Sodium Chloride 100 ml @ ud STK-MED ONCE .ROUTE 01/08/17 22:55 01/08/17 22:56 DC 01/08/17 23:20 Iohexol (Omnipaque) 100 ml @ ud STK-MED ONCE .ROUTE 01/08/17 22:55 01/08/17 22:56 DC 01/08/17 23:21 Acetaminophen/ Hydrocodone Bitart ([place] (5/325)) 1 tab ONCE ONCE PO 01/08/17 23:00 01/08/17 23:01 DC 01/08/17 23:07 Procedures/MDM EKG: NSR RAD No acute changes consistent with ischemia, no STEMI Labs: CBC unremarkable BMP unremarkable Trop negative Imaging: CTPA negative for PE r other acute abnormalities CXR: Marked hyperinflation of the lungs is unchanged from 08/01/2016 consistent with chronic obstructive pulmonary disease without evidence of pneumonia. Physician Donato Date Time Electronically viewed and signed by Physician Donato on 01/08/2017 20:[address] [facility] Patient is presenting with a recent history of nonspecific left sided chest pain that he has not felt today. Vitals were stable when he arrived. Cardiac workup was initiated. He was noted to have wheezing and dyspnea. CXR showed no acute abnormalities. Given his moderate risk for PE, CTPA was done and was negative. Med nebs were given with improvement in respiratory symptoms. IV steroids and antibiotics given for COPD exacerbation. I have a lower suspicion for ACS, but cannot rule this out. I explained this to the patient, but he states he does not want admission and would rather follow up outpatient .I believe this is reasonable as the patient's symptoms have been ongoing for 1 week and his cardiac workup so far is normal. Patient encouraged to follow up with PCP and cardiology in the next 2-3 days. Return precautions were given. Discharged with treatment for PRESS WASHER exacerbation. Departure Diagnosis: Primary Impression: COPD with exacerbation Additional Impression: Intermittent left-sided chest pain Condition: FAVIAN Maynard MD Jan 08, 2017 22:29
[2017-01-08] MEDS ORDERED: LEVOFLOXACIN 750 MG TABLET PO ONE (22:30)
[2017-01-08] MEDS ORDERED: SOD CHLORIDE 0.9% 100 ML ONE (22:55)
[2017-01-08] MEDS ORDERED: IOHEXOL 100 ML ONE (22:55)
[2017-01-08] MEDS ORDERED: HYDROCODONE/APAP (5/325) TAB PO ONE (23:00)
[2017-01-08 23:30] VITALS: BP 113/59; PULSE 67; RESP 18; TEMP 98
--- NOTE | 2017-01-08 23:53 | RADRPT ---
PROCEDURE: CTA chest pulmonary angiography. CLINICAL INDICATION: Chest pain. TECHNIQUE: CT angiography of the chest was performed after the uneventful intravenous administratio n of 90 cc of Omnipaque 350. Coronal and sagittal reformations were performed. 3-D/multiplanar ref ormations were performed by the technologist and an independent workstation. The total exam CTDI = 2 8.17, 4.19 mGy and the DLP equals 198.86 mGy-cm. One or more of the following dose reduction techniques were used: - Automated exposure control. - Adjustment of the mA and/or kV according to patient size. - Use of iterative reconstruction technique. COMPARISON: Chest x-ray dated 01/08/[address] angiography dated 07/29/2016. FINDINGS: Pulmonary angiogram: There are no emboli through the level of the subsegmental pulmonary arteries. The main pulmonary artery is normal in caliber and there is no evidence of right heart strain. Lungs, pleura, airways, and thoracic inlet: There is severe centrilobular and paraseptal emphysema with large bulla in the lateral left lung. There is no focal consolidation, effusion, or pneumothor ax. There is a 6 mm nodule in the lateral left upper lobe and 5 mm nodule in the lingula, new when c ompared with the prior examination. There is a 4 mm nodule in the posterior left lower lobe, also ne w when compared the prior. There is diffuse bronchial wall thickening. Cardiovascular system, mediastinum, and lymphatics: The heart is normal in size without pericardial thickening or effusion. There are multivessel coronary artery calcifications. There are atherosclero tic changes of the aorta, which is nonaneurysmal. There is no axillary, hilar, or mediastinal adenop athy. Visualized upper abdomen: There is an ill-defined 2.2 cm hypodense lesion in the visualized left he patic lobe and questionable additional smaller hypodense lesions in the visualized left and right he patic lobes. There is a simple 3.8 cm cyst at the visualized upper pole of the right kidney. There is gastrohepatic ligament adenopathy enlarged retroperitoneal lymph nodes, which are nonspecific. Musculoskeletal system and soft tissues: There is a healing posterior eighth left rib fracture. The re are no concerning osseous lesions. The soft tissues are unremarkable. IMPRESSION: 1. No pulmonary emboli through the level of the subsegmental pulmonary arteries. 2. Severe centrilobular and paraseptal emphysema with no superimposed focal consolidation. 3. Multiple nodules in the left lung measuring up to 6 mm, new when compared with the prior. Ill-de fined 2.2 cm hypodense lesion in the visualized left hepatic lobe additional questionable smaller he patic lesions. Gastrohepatic ligament adenopathy and prominent retroperitoneal nodes in the visuali zed upper abdomen. This constellation of findings is suspicious for metastatic disease from an unkn own primary. Consider PET-CT versus dedicated CT of the chest, abdomen, and pelvis with multiphase liver protocol for the abdomen portion. 4. Multivessel coronary artery calcifications and atherosclerotic changes of the aorta. RPTAT: HLBP .Wilder Sinclair MD, MD Date Time Electronically viewed and signed by .Wilder Sinclair MD, on 01/08/2017 23:53 .P/
[2017-01-09] MEDS ORDERED: PRED20TA PO (00:01)
[2017-01-09] MEDS ORDERED: LEVO750T25 PO (00:01)
== END 2017-01-09 00:45 | disposition home or self-care (01) ==
LOC: E/R 18:57
DX: J44.1 Chronic obstructive pulmonary disease with (acute) exacerbation (principal); R40.2252 Coma scale, best verbal response, oriented, at arrival to emergency department; I10 Essential (primary) hypertension; F17.210 Nicotine dependence, cigarettes, uncomplicated; R40.2142 Coma scale, eyes open, spontaneous, at arrival to emergency department; R40.2362 Coma scale, best motor response, obeys commands, at arrival to emergency department; Z79.01 Long term (current) use of anticoagulants; Z85.05 Personal history of malignant neoplasm of liver
CPT/HCPCS: 36415; 71010; 71275; 80053; 83690; 84484; 85025; 85610; 85730; 93005; 94640; 94664; 96374; 99285; J1100; Q9967

== ENCOUNTER 2017-02-22 00:25 | Inpatient (IN) | payer MEDICARE, OTHER ==
[2017-02-22] VITALS (8 sets, daily range): BP systolic 117–137; BP diastolic 57–65; PULSE 77–84; RESP 17–20; TEMP 97.6; Ht 165.1 cm; Wt 51.0 kg
[~2017-02-22] VITALS: Ht 165.1 cm; Wt 51.0 kg
[~2017-02-22 00:25] MED LIST changes: +LEVO750T25 PO; +PRED20TA PO
[2017-02-22] MEDS ORDERED: IPRATROPIUM (NEB) 0.5 MG/2.5 ML AMP INH STA (00:40)
[2017-02-22] MEDS ORDERED: ALBUTEROL 0.083% (NEB) 2.5 MG/3 ML AMP INH STA (00:40)
[2017-02-22 01:17] LABS: BASOPHILS % 0.1 % (0.0-2.0); HEMATOCRIT 37.8 % (42.0-52.0); LYMPHOCYTES # 1.2 10^3/ul (0.8-2.9); LYMPHOCYTES % 6.3 % (15.0-51.0); MEAN CORPUSCULAR HEMOGLOBIN 26.8 pg (29.0-33.0); MEAN CORPUSCULAR HGB CONC 31.7 g/dl (32.0-37.0); MEAN CORPUSCULAR VOLUME 84.4 fl (82.0-101.0); MEAN PLATELET VOLUME 9.5 fl (7.4-10.4); MONOCYTE # 1.3 10^3/ul (0.3-0.9); MONOCYTES % 6.9 % (0.0-11.0); NEUTROPHIL # 15.9 10^3/ul (1.6-7.5); PLATELET COUNT 251 10^3/UL (140-415); RED BLOOD COUNT 4.48 10^6/ul (4.70-6.10); RED CELL DISTRIBUTION WIDTH 13.9 % (11.5-14.5); WHITE BLOOD COUNT 18.5 10^3/ul (4.8-10.8)
[2017-02-22] MEDS ORDERED: METHYLPREDNISOLONE 125 MG INJ IV STA (01:20)
[2017-02-22] MEDS ORDERED: LEVOFLOXACIN 750MG/D5W (PMX) 150 ML IVPB STA (01:20)
[2017-02-22] MEDS ORDERED: ALBUTEROL 0.5% (NEB) 2.5 MG/0.5 ML AMP NEB STA (01:32)
[2017-02-22 01:39] LABS: ANION GAP 14 (8-16); BLOOD UREA NITROGEN 24 mg/dl (7-20); CALCIUM 9.4 mg/dl (8.4-10.2); CARBON DIOXIDE 31 mmol/L (21-31); CHLORIDE 102 mmol/L (97-110); CREATININE 0.64 mg/dl (0.61-1.24); GLUCOSE 133 mg/dl (70-220); POTASSIUM 4.9 mmol/L (3.5-5.1); SODIUM 142 mmol/L (135-144)
[2017-02-22 01:52] LABS: TROPONIN-I < 0.012 ng/ml (0.00-0.12)
[2017-02-22 02:13] LABS: MODE MASK - NRB; MetHgb Venous 0.2 %; Sample Type Blood venous; Venous COHb 0.6 %; Venous Fraction OxyHgb 70.8 %; Venous Total Hemglobin 11.4 g/dl
[2017-02-22] MEDS ORDERED: SODIUM CHLORIDE 0.9% 1L BAG IV* STA (02:16)
--- NOTE | 2017-02-22 02:22 | RADRPT ---
PROCEDURE: XR Chest. CLINICAL INDICATION: Shortness of breath TECHNIQUE: AP Portable chest. COMPARISON: CT 01/08/2017; CHEST 01/08/2017; DIOMEDES CHEST 08/01/2016; FINDINGS: The cardiomediastinal silhouette is normal.The aortic arch is calcified. The lungs are hyperinflated with bullous emphysematous changes. No focal consolidation, pleural effusion or pneumothorax is see n. There is a healing posterior left eighth rib fracture. The stomach is distended. IMPRESSION: No radiographic evidence of acute cardiopulmonary disease. Bullous emphysematous changes. Healing posterior left eighth rib fracture. Physician Yahir Date Time Electronically viewed and signed by Physician Yahir on 02/22/2017 02:22 /
[2017-02-22] MEDS ORDERED: NACL 0.9% 3 ML SYG IV SCH (03:00)
[2017-02-22] MEDS ORDERED: ACETAMINOPHEN 325 MG TAB PO PRN ×2 (03:00)
[2017-02-22] MEDS ORDERED: ONDANSETRON 4 MG INJ IV PRN ×2 (03:00)
[2017-02-22] MEDS ORDERED: ESCI10TA48 PO (03:05)
--- NOTE | 2017-02-22 03:26 | ERA ---
ER Documentation Chief Complaint Date/Time DATE: 02/22/17 TIME: 03:24 Chief Complaint SHORT OF BREATH X 1 DAY, CHEST CONGESTION HPI 66-year-old male with a history of COPD presenting to the ER by ambulance with shortness of breath that got worse today. He was admitted to [facility] about 3 days ago for similar symptoms. He was discharged with Levaquin and steroids. However today at home he got significantly worse. His inhalers at home are not helping. He denies any fever or chills. No chest pain. Otherwise history limited due to severe respiratory distress. ROS Limited secondary to severe respiratory distress Medications Home Meds Active Scripts Levofloxacin* (Levaquin*) 750 Mg Tablet, 750 MG PO DAILY for 4 Days, TAB Prov:FAVIAN MCKENNA MD 01/09/17 Prednisone* (Prednisone*) 20 Mg Tab, 60 MG PO DAILY for 5 Days, TAB Prov:FAVIAN MCKENNA MD 01/09/17 Nicotine* (Nicotine* Patch) 21 mg/day Patch, 1 PATCH TRANSDERM DAILY for 1 Day Prov:INEZ BECKWITH MD 07/29/16 Methylprednisolone Sodium Succinate (Solu-Medrol) 125 Mg Soln, 80 MG IV Q8H for 1 Day Prov:INEZ BECKWITH MD 07/29/16 Heparin Sod (Porcine)* (Heparin*) 5,000 Unit/0.5 Ml Soln, 5000 UNIT SC Q12 for 1 Day Prov:INEZ BECKWITH MD 07/29/16 Atenolol (Tenormin) 25 Mg Tab, 25 MG PO BID for 1 Day, TAB Prov:INEZ BECKWITH MD 07/29/16 Albuterol/Ipratropium* (Combivent Respimat*) 20-100 Mcg/Inh - 4 Gm Aer.w.adap, 1 PUFF INHALATION QID, #1 INHALER Prov:TOM BARCLAY MD 04/20/16 Albuterol Sulfate* (Proair HFA*) 8.5 Gm Hfa.aer.ad, 2 PUFF INH Q4, #1 INHALER 2 Refills Prov:TOM BARCLAY MD 04/20/16 Budesonide-Formoterol Fumarate* (Symbicort*) 160-4.5 Hfa.aer.ad, 2 PUFF INHALATION BID, #1 EACH 2 Refills Prov:TOM BARCLAY MD 04/20/16 Trazodone Hcl* (Trazodone Hcl*) 100 Mg Tablet, 100 MG PO QHS, #30 TAB 2 Refills Prov:TOM BARCLAY MD 04/20/16 Lorazepam* (Lorazepam*) 1 Mg Tablet, 1 MG PO Q6 Y for ANXIETY, #60 TAB 2 Refills Prov:TOM BARCLAY MD 04/20/16 Tamsulosin Hcl* (Flomax*) 0.4 Mg Cap.er.24h, 0.4 MG PO BID for 30 Days, CAP 2 Refills Prov:TOM BARCLAY MD 04/20/16 Reported Medications Escitalopram Oxalate* (Escitalopram Oxalate*) 10 Mg Tablet, 10 MG PO DAILY, #30 TAB 02/22/17 Pantoprazole* (Protonix*) 40 Mg Tablet.dr, 40 MG PO DAILY, TAB 04/16/16 Pravastatin Sodium* (Pravastatin Sodium*) 20 Mg Tablet, 20 MG PO HS, TAB 04/16/16 Hydrocodone/Acetaminophen ([place] 5-325 Tablet) 1 Each Tablet, 1 EACH PO Q6H Y for PRN, TAB 04/16/16 Ondansetron Hcl* (Ondansetron Hcl*) 8 Mg Tablet, 8 MG PO Q8 Y for NAUSEA, TAB TAKE AFTHER CHEMO 1 DAY TID AND OTHER DAYS DAILY 04/16/16 Prochlorperazine* (Prochlorperazine*) 10 Mg Tablet, 10 MG PO Q6H Y for NAUSEA, TAB 04/16/16 Discontinued Scripts Fluticasone Propionate* (Fluticasone Propionate* Nasal) 50 Mcg/[place] - 16 Gm [place].susp, 1 SPRAY NASAL BID Y for stuffy nose, #1 Prov:TOM BARCLAY MD 04/20/16 Throat Lozenges* (Cepastat*) 9 Jenn Lozenge, 1 [place] MT Q4H Y for SORE THROAT for 30 Days, LOZENGE Prov:TOM BARCLAY MD 04/20/16 Guaifenesin-Codeine Phosphate* (Robitussin* AC) 5 Ml Syrup, 10 ML PO Q6H Y for for cough, #1 1 Refill Prov:TOM BARCLAY MD 04/20/16 Tiotropium [place]* (Spiriva*) 18 Mcg Cap.w.dev, 1 CAP INHALATION DAILY, #30 CAP 2 Refills Prov:TOM BARCLAY MD 04/20/16 Allergies Allergies: Coded Allergies: No Known Allergy (Unverified , 04/16/16) PMhx/Soc History of Surgery: Yes (hernia sx) Anesthesia Reaction: No Hx Neurological Disorder: No Hx Respiratory Disorders: Yes (COPD, emphysema) Hx Cardiac Disorders: Yes (HTN, CVA) Hx Psychiatric Problems: No (depression and anxiety) Hx Miscellaneous Medical Probl: Yes (LIVER CANCER, ENLARGED PROSTATE, ESOPHAGITIS CANCER) Hx Alcohol Use: No Hx Substance Use: No Hx Tobacco Use: Yes (OCCASIONAL) FmHx Family History: No diabetes Physical Exam Vitals Vital Signs Date Time Temp Pulse Resp B/P Pulse Ox O2 Delivery O2 Flow Rate FiO2 02/22/17 03:33 88 23 127/72 Room Air 4.0 02/22/17 03:00 86 21 123/69 99 Room Air 4.0 02/22/17 02:18 99 4.0 02/22/17 02:15 84 25 115/68 99 Non Rebreather 10.0 02/22/17 02:00 87 26 99 Nasal Cannula 4.0 02/22/17 01:30 91 27 170/98 99 Non Rebreather 10.0 02/22/17 01:03 Non Rebreather 10.0 02/22/17 01:01 97.6 92 37 167/95 99 Non Rebreather 10.0 02/22/17 00:57 91 30 99 21 02/22/17 00:53 Bag Valve Mask 10 02/22/17 00:36 97.7 97 17 167/95 94 Physical Exam Const: Currently getting a breathing treatment, appears to be in significant respiratory distress, speaking in one-word sentences. Head: Atraumatic Eyes: Normal Conjunctiva ENT: Normal External Ears, Nose and Mouth. Neck: Full range of motion..~ No meningismus. Resp: tachypneic, Diminished bilaterally with diffuse expiratory wheezing, no rales or rhonchi Cardio: Tachycardic, regular rhythm, no murmurs Abd: Soft, non tender, non distended. Normal bowel sounds Skin: No petechiae or rashes Back: No midline or flank tenderness Ext: No cyanosis, or edema Neur: Awake and alert Psych: Normal Mood and Affect Result Diagram: 02/22/17 0041 02/22/17 0041 Results 24 hrs Laboratory Tests Test 02/22/17 00:40 02/22/17 00:41 02/22/17 02:35 Blood Gas Specimen Source Blood venous Arterial Blood Date Drawn 02/22/2017 2:00:14 AM Arterial Blood Gas Puncture Site VENOUS LINE Kal Test N/A Venous Blood pH 7.324 Venous Blood pCO2 (Temp Corrected) 58.2mmHG Venous Blood pO2 (Temp Corrected) 38.8mmHG Venous Blood HCO3 29.6mmol/L Venous Blood Oxygen Saturation 71.4mmHG Venous Blood Base Excess 2.5mmol/L Venous Blood Total Hemoglobin 11.4g/dl Venous Blood Oxyhemoglobin 70.8% Venous Blood Methemoglobin 0.2% Carboxyhemoglobin 0.6% Blood Gas Temperature 37.0C Blood Gas Modality MASK - NRB FiO2 100.0% Blood Gas Notified Whom SUZIE GAS PRODUCER Blood Gas Notified Time 02/22/2017 2:12:47 AM White Blood Count 18.510^3/ul Red Blood Count 4.4810^6/ul Hemoglobin 12.0g/dl Hematocrit 37.8% Mean Corpuscular Volume 84.4fl Mean Corpuscular Hemoglobin 26.8pg Mean Corpuscular Hemoglobin Concent 31.7g/dl Red Cell Distribution Width 13.9% Platelet Count 79809^3/UL Mean Platelet Volume 9.5fl Neutrophils % 86.0% Lymphocytes % 6.3% Monocytes % 6.9% Eosinophils % 0.0% Basophils % 0.1% Nucleated Red Blood Cells % 0.0/100WBC Neutrophils # 15.910^3/ul Lymphocytes # 1.210^3/ul Monocytes # 1.310^3/ul Eosinophils # 0.010^3/ul Basophils # 0.010^3/ul Nucleated Red Blood Cells # 0.010^3/ul Sodium Level 142mmol/L Potassium Level 4.9mmol/L Chloride Level 102mmol/L Carbon Dioxide Level 31mmol/L Anion Gap 14 Blood Urea Nitrogen 24mg/dl Creatinine 0.64mg/dl Glucose Level 133mg/dl Calcium Level 9.4mg/dl Troponin I < 0.012ng/ml Lactic Acid Level 2.3mmol/L Current Medications Medications (Trade) Dose Ordered Sig/Josef Route PRN Reason Start Time Stop Time Status Last Admin Dose Admin Albuterol (Proventil 0.083% (Neb)) 5 mg ONCE STAT INH 02/22/17 00:40 02/22/17 00:42 DC 02/22/17 00:55 Ipratropium [place] (Atrovent 0.02% (Neb)) 0.5 mg ONCE STAT INH 02/22/17 00:40 02/22/17 00:42 DC 02/22/17 00:55 Methylprednisolone Sodium Succinate 125 mg 125 mg ONCE STAT IV 02/22/17 01:20 02/22/17 01:21 DC 02/22/17 01:50 Levofloxacin/ Dextrose (Levaquin 750 Mg/ D5W 150 ml (Pmx)) 150 ml @ 100 mls/hr ONCE STAT IVPB 02/22/17 01:20 02/22/17 02:49 DC 02/22/17 01:51 Albuterol (Proventil 0.5% (Neb)) 10 mg ONCE STAT NEB 02/22/17 01:32 02/22/17 01:33 DC 02/22/17 02:00 Sodium Chloride (NS) 1,550 ml BOLUS OVER 2 HOURS STAT IV* 02/22/17 02:16 02/22/17 02:17 DC 02/22/17 02:48 Ondansetron HCl (Zofran Inj) 4 mg ER BRIDGE PRN IV NAUSEA AND/OR VOMITING 02/22/17 03:00 02/23/17 02:59 Acetaminophen (Tylenol Tab) 650 mg ER BRIDGE PRN PO MILD PAIN/FEVER 02/22/17 03:00 02/23/17 02:59 IV Flush (NS 3 ml) 3 ml PER PROTOCOL IV 02/22/17 03:00 Ondansetron HCl (Zofran Inj) 4 mg Q6H PRN IV NAUSEA AND/OR VOMITING 02/22/17 03:00 Acetaminophen (Tylenol Tab) 650 mg Q6H PRN PO PAIN LEVEL 1-3 OR FEVER 02/22/17 03:00 Famotidine (Pepcid Iv) 20 mg Q12 IV 02/22/17 09:00 Albuterol/ Ipratropium (Duoneb) 3 ml Q4H RESP THERAPY HHN 02/22/17 05:00 Methylprednisolone Sodium Succinate 30 mg 30 mg Q8 IV 02/22/17 06:00 Vancomycin HCl/ Sodium Chloride (Vancocin/NS) 250 ml @ 125 mls/hr ONCE ONCE IVPB 02/22/17 03:30 02/22/17 05:29 Procedures/MDM Labs: CBC : leukocytosis BMP: elevated BUN Trop wnl Latate elevated EKG: Rate/Rhythm: Normal Sinus Rhythm QRS, ST, T-waves: T-wave inversions in 1 and aVL, no other ST changes Impression: No evidence of STEMI or arrhythmia, abnormal EKG Chest x-ray IMPRESSION: No radiographic evidence of acute cardiopulmonary disease. Bullous emphysematous changes. Healing posterior left eighth rib fracture. Physician Yahir Date Time Electronically viewed and signed by Honey Miller Physician on 02/22/2017 02: 22 [facility] Patient is presenting with signs and symptoms of COPD exacerbation. Presentation was consistent with sepsis. Patient has failed outpatient antibiotics. IV antibiotics were started. He received multiple breathing treatments with improvement of his symptoms, however he is still not stable for discharge.Patient's infectious symptoms have not stabilized and the patient is at risk of rapid decompensation. The patient will be admitted for careful hydration, antibiotic therapy, Frequent respiratory treatments and monitoring, and infectious source control. Severe Sepsis Assessment: Infectious Source: bronchitis End organ damage indicated by: Lactate > 2.0 mmol/L Acute Resp Failure (sat < 92% w/o oxygen) Severe Sepsis Managment: Blood Cultures X 2 before broad spectrum antibiotics initiated within 3 hours of recognition. 30 ml/kg NS bolus Completed Initial Lactate: 2.5 Repeat Lactate pending Critical Care: Time: 40 minutes Treatments/Evaluations: Emergent fluid management, while maintaining close respiratory support. Immediate broad spectrum antibiotic therapy. Simultaneous assessment for possible sources in order to direct therapy. Consideration for invasive and chemical support to prevent respiratory or cardiac collapse. Septic Shock Assessment (1 hour post 30 ml/kg fluid bolus): Hypotension (SBP < 90 or 40 mmHg drop, MAP < 65): No Lactic acid > 4.0 No Accepting Care Team: Current data and ongoing care discussed. Time: Time of admission Primary Provider: Asif Consulting: none Outstanding Data: lactate ,cultures Departure Diagnosis: Primary Impression: COPD with exacerbation Additional Impression: Acute respiratory failure with hypoxia and hypercapnia FAVIAN MCKENNA MD Feb 22, 2017 03:26
[2017-02-22] MEDS ORDERED: VANCOMYCIN 0.75 GM in SOD CHLORIDE 0.9% 250 ML IVPB ONE (03:30)
[2017-02-22 04:39] LABS: ABNORMAL IP MESSAGE 1; HEMATOCRIT 30.3 % (42.0-52.0); HEMOGLOBIN 9.5 g/dl (14.0-18.0); LYMPHOCYTES # 0.2 10^3/ul (0.8-2.9); LYMPHOCYTES % 1.3 % (15.0-51.0); MEAN CORPUSCULAR HEMOGLOBIN 26.5 pg (29.0-33.0); MEAN CORPUSCULAR HGB CONC 31.4 g/dl (32.0-37.0); MEAN CORPUSCULAR VOLUME 84.4 fl (82.0-101.0); MEAN PLATELET VOLUME 9.7 fl (7.4-10.4); MONOCYTE # 0.4 10^3/ul (0.3-0.9); MONOCYTES % 3.1 % (0.0-11.0); NEUTROPHIL # 12.7 10^3/ul (1.6-7.5); NEUTROPHILS % 94.9 % (39.0-77.0); PLATELET COUNT 169 10^3/UL (140-415); POSITIVE DIFF @See below; RED BLOOD COUNT 3.59 10^6/ul (4.70-6.10); RED CELL DISTRIBUTION WIDTH 13.8 % (11.5-14.5); WHITE BLOOD COUNT 13.4 10^3/ul (4.8-10.8)
[2017-02-22 05:14] LABS: ALBUMIN 2.8 g/dl (3.3-4.9); ALBUMIN/GLOBULIN RATIO 0.93; BILIRUBIN,INDIRECT 0.1 mg/dl (0-1.1); BILIRUBIN,TOTAL 0.1 mg/dl (0.2-1.3); CALCIUM 8.8 mg/dl (8.4-10.2); CHOL/HDL RATIO 2.4 RATIO; CREATININE 0.54 mg/dl (0.61-1.24); MAGNESIUM 2.1 mg/dl (1.7-2.5); TOTAL PROTEIN 5.8 g/dl (6.1-8.1)
[2017-02-22] MEDS: ALBUTEROL/IPRATROPIUM (NEB) 3 ML AMP HHN SCH ×5 (05:14→21:57)
[2017-02-22 05:44] LABS: THYROID STIMULATING HORMONE 0.016 MIU/L (0.465-4.680)
[2017-02-22] MEDS: METHYLPREDNISOLONE 40 MG INJ IV SCH ×3 (05:46→21:29)
--- NOTE | 2017-02-22 05:55 | HP ---
Date/Time of Note Date/Time of Note DATE: 02/22/17 TIME: 05:53 Assessment/Plan VTE Prophylaxis VTE Prophylaxis Intervention: heparin Assessment/Plan Chief Complaint/Hosp Course This is a 56-year-old male being admitted to the telemetry floor for: #1 COPD exacerbation #2 esophageal cancer with liver metastases #3 new left lung mass: Possible metastases versus primary #4 Lactic acidosis #5 Chronic anemia #6 Mild pulmonary hypertension #7 hypertension #8 hyperlipidemia #9 depression/anxiety #10 history of C. difficile #11 History of CVA Plan: Patient was recently treated for a COPD exacerbation. His lung exam shows poor effort and decreased aeration. At the current time we will continue him on IV Solu-Medrol loading dose was given in the ED will continue 30 mg IV every 8. Duo nebs every 4 hours. He was also discharged on Levaquin, at the current time I will treat him with doxycycline. The ED also order vancomycin 1 dose. X-ray and seen hospital showed a new 35 x 13 mm oval density of the left lung, however x-ray in our ER did not show any evidence of this. Will continue current treatment at this time. If symptoms get worse we will consider CT scan of the chest. May need pulmonary consult. Lactic acidosis of 2.3 no signs of infection at this time however currently on antibiotics, provide IV fluid hydration and continue to trend. otherwise patient is scheduled to have an outpatient appointment with his systems coordinator as per the documentation from his discharge from [place] [facility]. Will review patient's home medications and continue as indicated. DVT and GI prophylaxis: Heparin, Protonix Further treatment strategy will be implemented as per the clinical course Problems: HPI/ROS Admit Date/Time Admit Date/Time Feb 22, 2017 at 02:37 Hx of Present Illness Chief complaint: Shortness of breath This is a 66-year-old male with a history of COPD and esophageal adenocarcinoma with liver metastases and new left lung mass, presenting to the ER by ambulance with shortness of breath that got worse today. He was admitted to [facility] about 3 days ago for similar symptoms. He was discharged with Levaquin and steroids. However today at home he got significantly worse. His inhalers at home are not helping. He denies any fever or chills. No chest pain. He was discharged on 02/18/2017 at that hospital stay he was treated for COPD exacerbation and he was found to have a new lung mass of the right chest. He was to follow-up with his oncologist for further workup. Allergies: NKDA Medications: See YAN ROS Const: As per HPI Eyes : No pain discharge or redness or change in visual acuity ENT: No pain, sore throat, congestion, congestion, dysphagia or discharge Respiratory: As per HPI Cardiovascular: No chest pain, palpitation, PND, or edema GI : no change in appetite, abdominal pain, nausea, vomiting, diarrhea, constipation, or change in the color his stool Genitourinary: No dysuria, hematuria, flank pain , discharge or CVA tenderness Musculoskeletal: No joint pain, back pain, neck pain, restricted range of motion in neck or joints Skin: No rash, bruising or hives Neuro: No headache, dizziness, syncope, seizure, focal weakness Endocrine: No polyuria, polydipsia, temperature intolerance Psych: No hallucination, depression, anxiety or suicidal ideation PMH/Family/Social Past Medical History COPD, esophageal adenocarcinoma with liver metastases, mass of left lung: Etiology unknown at this time, chronic anemia, mild diastolic CHF, pulmonary hypertension, hypertension, hyperlipidemia, depression, anxiety, history of C. difficile, osteoarthritis, history of CVA Past Surgical History Hernia repair Family History Significant Family History: no pertinent family hx Social History Alcohol Use: none Smoking Status: Former smoker Drug Use: none Exam/Review of Systems Vital Signs Vitals Vital Signs Date Time Temp Pulse Resp B/P Pulse Ox O2 Delivery O2 Flow Rate FiO2 02/22/17 04:44 83 02/22/17 03:33 23 127/72 Room Air 4.0 02/22/17 03:00 99 02/22/17 01:01 97.6 02/22/17 00:57 21 Exam Exam General: Patient is a frail-appearing male lying in bed in mild respiratory distress. HEENT: Atraumatic, normocephalic. The pupils are equal, round and reactive. Extraocular motor are intact Neck: Supple with full range of motion. No rigidity or meningismus Chest: Nontender Lungs: Decreased breath sounds bilaterally, decreased aeration, mild expiratory wheezing Heart: Normal S1-S2, Regular rhythm and rate. Abdomen: Soft , nontender, nondistended , bowel sounds are present. No guarding no rebound tenderness , No masses or organomegaly. No costovertebral temporal angle mass Extremities: Normal to inspection, no edema no cyanosis Neurologic: Normal mental status, speech normal, cranial nerves II through XII are intact, motor and sensory are intact, no focal weakness Additional Comments PROCEDURE: XR Chest. CLINICAL INDICATION: Shortness of breath TECHNIQUE: AP Portable chest. COMPARISON: CT 01/08/2017; CHEST 01/08/2017; DIOMEDES CHEST 08/01/2016; FINDINGS: The cardiomediastinal silhouette is normal.The aortic arch is calcified. The lungs are hyperinflated with bullous emphysematous changes. No focal consolidation, pleural effusion or pneumothorax is seen. There is a healing posterior left eighth rib fracture. The stomach is distended. IMPRESSION: No radiographic evidence of acute cardiopulmonary disease. Bullous emphysematous changes. Healing posterior left eighth rib fracture. Physician Yahir Date Time Electronically viewed and signed by Honey Miller Physician on 02/22/2017 02: 22 CS/ CC: FAVIAN MCKENNA MD Labs Result Diagram: 02/22/17 0041 02/22/17 0041 Medications Medications Current Medications Ondansetron HCl (Zofran Inj) 4 mg Q6H PRN IV NAUSEA AND/OR VOMITING; Start at 03:00 Acetaminophen (Tylenol Tab) 650 mg Q6H PRN PO PAIN LEVEL 1-3 OR FEVER; Start 02/22/17 at 03:00 Famotidine (Pepcid Iv) 20 mg Q12 IV ; Start 02/22/17 at 09:00 Methylprednisolone Sodium Succinate 30 mg 30 mg Q8 IV ; Start 02/22/17 at 06:00 Vancomycin HCl/ Sodium Chloride (Vancocin/NS) 250 ml @ 125 mls/hr ONCE ONCE IVPB ; Start 02/22/17 at 03:30; Stop 02/22/17 at 05:29 LUIS MOORE Feb 22, 2017 05:55 Medications Medications Current Medications Ondansetron HCl (Zofran Inj) 4 mg Q6H PRN IV NAUSEA AND/OR VOMITING; Start at 03:00 Acetaminophen (Tylenol Tab) 650 mg Q6H PRN PO PAIN LEVEL 1-3 OR FEVER; Start 02/22/17 at 03:00 Famotidine (Pepcid Iv) 20 mg Q12 IV ; Start 02/22/17 at 09:00 Methylprednisolone Sodium Succinate 30 mg 30 mg Q8 IV ; Start 02/22/17 at 06:00 Vancomycin HCl/ Sodium Chloride (Vancocin/NS) 250 ml @ 125 mls/hr ONCE ONCE IVPB ; Start 02/22/17 at 03:30; Stop 02/22/17 at 05:29 LUIS MOORE Feb 22, 2017 05:55
[2017-02-22] MEDS: SOD CHLORIDE 0.9% 1,000 ML IV SCH ×3 (06:00→22:06)
[2017-02-22] MEDS ORDERED: NACL 3% FOR INHALATION 15 ML NEBU NEB ONE (06:00)
[2017-02-22] MEDS ORDERED: PROCHLORPERAZINE 10 MG TAB PO PRN (07:00)
[2017-02-22] MEDS ORDERED: ONDANSETRON 4 MG TAB PO PRN (07:00)
[2017-02-22] MEDS ORDERED: ALBUTEROL 18 GM INHALER INH SCH (09:00)
[2017-02-22] MEDS: NICOTINE (21 MG/24 HR) PATCH TRANSDERM SCH (09:00)
[2017-02-22] MEDS: DOXYCYCLINE 100 MG in SOD CHLORIDE 0.9% 250 ML IVPB SCH ×2 (09:00→21:31)
[2017-02-22] MEDS: HEPARIN 5,000 UNIT/0.5 ML VIAL SC SCH ×2 (09:00→21:30)
[2017-02-22] MEDS ORDERED: NON-FORMULARY/PATIENT OWN MED (Albuterol/Ipratropium* (Combivent Respimat*) 1 PUFF) INHALATION SCH (09:00)
[2017-02-22] MEDS: TAMSULOSIN (SR) 0.4 MG CAP PO SCH ×2 (09:26→21:30)
[2017-02-22] MEDS: ESCITALOPRAM 10 MG TAB PO SCH (09:27)
[2017-02-22] MEDS: FAMOTIDINE 20 MG INJ IV SCH ×2 (09:27→21:30)
[2017-02-22] MEDS: LORAZEPAM 1 MG TAB PO PRN ×2 (09:29→22:05)
[2017-02-22] MEDS ORDERED: HYDROCODONE/APAP (5/325) TAB PO PRN (12:00)
--- NOTE | 2017-02-22 12:45 | CONS ---
Date/Time of Note Date/Time of Note DATE: 02/22/17 TIME: 12:37 Assessment/Plan Assessment/Plan Additional Assessment/Plan Esophageal cancer Acute pain management syndrome Depression Hypertension Hyperlipidemia Past medical history of CVA We will institute a slight adjustments with his pain control medications he is not asking for major adjustments. Etiology of his pain is somewhat unclear unless he has bony metastasis which is unknown at this time. Patient was counseled concerning thinking about his CODE STATUS and having a POLST form. Consultation Date/Type/Reason Admit Date/Time Feb 22, 2017 at 02:37 Reason for Consultation Pain management palliative care Hx of Present Illness This is a 66-year-old gentleman who assist with scheduling me a history of his current medical diagnosis. He is somewhat slow to answer questions and appears to be in somewhat discomfort. Apparently he was diagnosed with esophageal cancer with metastasis to his liver he underwent chemotherapy but not radiation treatment. According patient's medical records here he has a new lung mass on the left-hand side patient was unaware of this. Patient has a past medical history of smoking presented to [facility] acutely short of breath. He states he is improved at this time. Other comorbid major medical problems including chronic obstructive pulmonary disease, chronic anemia, pulmonary hypertension hyperlipidemia. Insofar as his pain patient states that he hurts all over does not pacify whether or not his abdomen or bony pain but just generalized discomfort states that he has been taking his hydrocodone at home 4 tablets daily. Hydrocodone controls his discomfort and is not Axon for medication changes or escalating doses. Denies nausea vomiting mental cloudiness sweating fatigue denies weight loss pain is rated 8/10 pain is 50% less at 4/10 with appropriate dosing of pain medication he states he has lost weight and his physical functioning has been adequate. Social History Alcohol Use: none Smoking Status: Former smoker Drug Use: none Exam/Review of Systems Vital Signs Vitals Vital Signs Date Time Temp Pulse Resp B/P Pulse Ox O2 Delivery O2 Flow Rate FiO2 02/22/17 12:00 98.6 80 18 120/61 98 02/22/17 06:00 Nasal Cannula 02/22/17 05:20 2.0 02/22/17 00:57 21 Intake and Output 02/21/17 02/21/17 02/22/17 15:00 23:00 07:00 Intake Total 1550 ml Balance 1550 ml Exam Constitutional: alert, oriented, well developed Psych: other (Depressed mood) Head: atraumatic, normocephalic, No hematomas, No lacerations, No other Respiratory: clear to auscultation, normal air movement, No congested cough, No crackles/rales, No diminished breath sounds, No intercostal retraction, No labored breathing, No other, No respirations, No tactile fremitus, No wheezing Cardiovascular: nl pulses, regular rate and rhythm, No S3, No S4, No bruits, No diastolic murmur, No edema, No gallop, No irregular rhythm, No jugular venous distention (JVD), No murmurs/extra sounds, No other, No rub, No systolic murmur Neurological: INSTRUMENTATION SUPERVISOR II-XII intact, nl mental status, nl speech, nl strength, No DTR's symmetric, No confused, No focal weakness, No lethargic, No numbness , No other, No reflexes, No unresponsive Results Result Diagram: 02/22/17 04002/22/17 0400 Results 24 hrs Laboratory Tests Test 02/22/17 00:40 02/22/17 00:41 02/22/17 02:35 02/22/17 04:00 Blood Gas Specimen Source Blood venous Arterial Blood Date Drawn 02/22/2017 2:00:14 AM Arterial Blood Gas Puncture Site VENOUS LINE Kal Test N/A Venous Blood pH 7.324 L Venous Blood pCO2 (Temp Corrected) 58.2 H Venous Blood pO2 (Temp Corrected) 38.8 H Venous Blood HCO3 29.6 H Venous Blood Oxygen Saturation 71.4 Venous Blood Base Excess 2.5 Venous Blood Total Hemoglobin 11.4 Venous Blood Oxyhemoglobin 70.8 Venous Blood Methemoglobin 0.2 Carboxyhemoglobin 0.6 Blood Gas Temperature 37.0 Blood Gas Modality MASK - NRB FiO2 100.0 Blood Gas Notified Whom [facility] Blood Gas Notified Time 02/22/2017 2:12:47 AM White Blood Count 18.5 #H 13.4 #H Red Blood Count 4.48 L 3.59 L Hemoglobin 12.0 L 9.5 #L Hematocrit 37.8 L 30.3 L Mean Corpuscular Volume 84.4 84.4 Mean Corpuscular Hemoglobin 26.8 L 26.5 L Mean Corpuscular Hemoglobin Concent 31.7 L 31.4 L Red Cell Distribution Width 13.9 13.8 Platelet Count 251 # 169 # Mean Platelet Volume 9.5 9.7 Neutrophils % 86.0 H 94.9 H Lymphocytes % 6.3 L 1.3 L Monocytes % 6.9 3.1 Eosinophils % 0.0 0.0 Basophils % 0.1 0.0 Nucleated Red Blood Cells % 0.0 0.0 Neutrophils # 15.9 H 12.7 H Lymphocytes # 1.2 0.2 L Monocytes # 1.3 H 0.4 Eosinophils # 0.0 0.0 Basophils # 0.0 0.0 Nucleated Red Blood Cells # 0.0 0.0 Sodium Level 142 138 Potassium Level 4.9 4.0 Chloride Level 102 102 Carbon Dioxide Level 31 32 H Anion Gap 14 8 Blood Urea Nitrogen 24 H 23 H Creatinine 0.64 0.54 L Glucose Level 133 162 Calcium Level 9.4 8.8 Troponin I < 0.012 Lactic Acid Level 2.3 *H 2.3 *H Hemoglobin A1c 5.8 Magnesium Level 2.1 Total Bilirubin 0.1 L Direct Bilirubin 0.00 Indirect Bilirubin 0.1 Aspartate Amino Transf (AST/SGOT) 23 Alanine Aminotransferase (ALT/SGPT) 42 Alkaline Phosphatase 114 Total Protein 5.8 L Albumin 2.8 L Globulin 3.00 Albumin/Globulin Ratio 0.93 Triglycerides Level 84 Cholesterol Level 138 LDL Cholesterol, Calculated 65 HDL Cholesterol 56 Cholesterol/HDL Ratio 2.4 Thyroid Stimulating Hormone (TSH) 0.016 L Test 02/22/17 05:39 Lactic Acid Level 1.6 Medications Medications Current Medications Ondansetron HCl (Zofran Inj) 4 mg Q6H PRN IV NAUSEA AND/OR VOMITING; Start at 03:00 Acetaminophen (Tylenol Tab) 650 mg Q6H PRN PO PAIN LEVEL 1-3 OR FEVER; Start 02/22/17 at 03:00 Famotidine (Pepcid Iv) 20 mg Q12 IV Last administered on 02/22/17 09:27; Admin Dose 20 MG; Start 02/22/17 at 09:00 Methylprednisolone Sodium Succinate 30 mg 30 mg Q8 IV Last administered on 05:46; Admin Dose 30 MG; Start 02/22/17 at 06:00 Doxycycline Hyclate 100 mg/ Sodium Chloride 250 ml @ 250 mls/hr Q12 IVPB ; Start 02/22/17 at 09:00 Sodium Chloride (NS) 1,000 ml @ 70 mls/hr [id number] IV Last administered on 06:00; Admin Dose 70 MLS/HR; Start 02/22/17 at 06:30 Escitalopram Oxalate (Lexapro) 10 mg DAILY PO Last administered on 02/22/17 09:27; Admin Dose 10 MG; Start 02/22/17 at 09:00 Heparin Sodium (Porcine) (Heparin (5000 Units/0.5 ml)) 5,000 unit Q12 SC ; Start 02/22/17 at 09:00 Lorazepam (Ativan) 1 mg Q6 PRN PO ANXIETY Last administered on 02/22/17 09:29 ; Admin Dose 1 MG; Start 02/22/17 at 07:00 Nicotine (Nicoderm 21 Mg/ 24hr) 1 patch DAILY TRANSDERM ; Start 02/22/17 at 09: 00 Ondansetron HCl (Zofran Tab) 8 mg Q8 PRN PO NAUSEA; Start 02/22/17 at 07:00 Prochlorperazine (Compazine) 10 mg Q6H PRN PO NAUSEA; Start 02/22/17 at 07:00 Tamsulosin HCl (Flomax) 0.4 mg BID PO Last administered on 02/22/17 09:26; Admin Dose 0.4 MG; Start 02/22/17 at 09:00 Trazodone HCl (Desyrel) 100 mg QHS PO ; Start 02/22/17 at 21:00 Salmeterol Xinafoate/ Fluticasone (Advair 250/50 Diskus) 1 inh BID INH ; Start 02/22/17 at 09:00 Atorvastatin Calcium (Lipitor) 10 mg DAILY@21 PO ; Start 02/22/17 at 21:00 Acetaminophen/ Hydrocodone Bitart ([place] (5/325)) 1 tab Q4H PRN PO PAIN LEVEL 6 -10; Start 02/22/17 at 12:00 RICO SULLIVAN Feb 22, 2017 12:45
[2017-02-22] MEDS: HYDROCODONE/APAP (5/325) TAB PO PRN ×2 (13:27→18:49)
[2017-02-22] MEDS: SALMETEROL/FLUTICASONE 250/50 INHA INH SCH ×2 (15:53→21:28)
--- NOTE | 2017-02-22 18:52 | PN ---
Date/Time of Note Date/Time of Note DATE: 02/22/17 TIME: 18:50 Assessment/Plan VTE Prophylaxis VTE Prophylaxis Intervention: LMWH Lines/Catheters IV Catheter Type (from Nrs): Peripheral IV Assessment/Plan Chief Complaint/Hosp Course 66 yo mlae with heavy smoking histoyr, COPD presenting with COPD exacerbation, acute on chronic hypoxic and hypercapenic respiratory failure - Continue nebs, steroids, abx - O2 by NC to O2 88-92% - BIPAP may be needed at night for chronic hypercapnea Problems: Subjective 24 Hr Interval Summary Free Text/Dictation Patient feeling a bit better Requests more nebs Says he is on home O2 Exam/Review of Systems Vital Signs Vitals Vital Signs Date Time Temp Pulse Resp B/P Pulse Ox O2 Delivery O2 Flow Rate FiO2 02/22/17 16:07 84 20 97 Nasal Cannula 2.5 02/22/17 15:49 98.0 124/58 02/22/17 00:57 21 Intake and Output 02/21/17 02/21/17 02/22/17 15:00 23:00 07:00 Intake Total 1550 ml Balance 1550 ml Exam Lungs wihtout wheezing but distant and course sounds. Nonlabored Constitutional: alert, oriented, well developed Psych: nl mood/affect, no complaints Head: atraumatic, normocephalic Eyes: EOMI, PERRL, nl conjunctiva, nl lids, nl sclera ENMT: nl external ears & nose, nl lips & teeth, nl nasal mucosa & septum Neck: non-tender, supple Respiratory: clear to auscultation, normal air movement Cardiovascular: nl pulses, regular rate and rhythm Gastrointestinal: nl liver, spleen, non-tender, soft Musculoskeletal: nl extremities to inspection, nl gait and stance Extremities: normal pulses Neurological: CLINICAL LAB TECHNOLOGIST II-XII intact, nl mental status, nl speech, nl strength Skin: nl turgor, No rash or lesions Lymph: nl lymph nodes Results Result Diagram: 02/22/170 02/22/170 Results 24 hrs Laboratory Tests Test 02/22/17 00:40 02/22/17 00:41 02/22/17 02:35 02/22/17 04:00 Blood Gas Specimen Source Blood venous Arterial Blood Date Drawn 02/22/2017 2:00:14 AM Arterial Blood Gas Puncture Site VENOUS LINE Kal Test N/A Venous Blood pH 7.324 L Venous Blood pCO2 (Temp Corrected) 58.2 H Venous Blood pO2 (Temp Corrected) 38.8 H Venous Blood HCO3 29.6 H Venous Blood Oxygen Saturation 71.4 Venous Blood Base Excess 2.5 Venous Blood Total Hemoglobin 11.4 Venous Blood Oxyhemoglobin 70.8 Venous Blood Methemoglobin 0.2 Carboxyhemoglobin 0.6 Blood Gas Temperature 37.0 Blood Gas Modality MASK - NRB FiO2 100.0 Blood Gas Notified Whom [facility] Blood Gas Notified Time 02/22/2017 2:12:47 AM White Blood Count 18.5 #H 13.4 #H Red Blood Count 4.48 L 3.59 L Hemoglobin 12.0 L 9.5 #L Hematocrit 37.8 L 30.3 L Mean Corpuscular Volume 84.4 84.4 Mean Corpuscular Hemoglobin 26.8 L 26.5 L Mean Corpuscular Hemoglobin Concent 31.7 L 31.4 L Red Cell Distribution Width 13.9 13.8 Platelet Count 251 # 169 # Mean Platelet Volume 9.5 9.7 Neutrophils % 86.0 H 94.9 H Lymphocytes % 6.3 L 1.3 L Monocytes % 6.9 3.1 Eosinophils % 0.0 0.0 Basophils % 0.1 0.0 Nucleated Red Blood Cells % 0.0 0.0 Neutrophils # 15.9 H 12.7 H Lymphocytes # 1.2 0.2 L Monocytes # 1.3 H 0.4 Eosinophils # 0.0 0.0 Basophils # 0.0 0.0 Nucleated Red Blood Cells # 0.0 0.0 Sodium Level 142 138 Potassium Level 4.9 4.0 Chloride Level 102 102 Carbon Dioxide Level 31 32 H Anion Gap 14 8 Blood Urea Nitrogen 24 H 23 H Creatinine 0.64 0.54 L Glucose Level 133 162 Calcium Level 9.4 8.8 Troponin I < 0.012 Lactic Acid Level 2.3 *H 2.3 *H Hemoglobin A1c 5.8 Magnesium Level 2.1 Total Bilirubin 0.1 L Direct Bilirubin 0.00 Indirect Bilirubin 0.1 Aspartate Amino Transf (AST/SGOT) 23 Alanine Aminotransferase (ALT/SGPT) 42 Alkaline Phosphatase 114 Total Protein 5.8 L Albumin 2.8 L Globulin 3.00 Albumin/Globulin Ratio 0.93 Triglycerides Level 84 Cholesterol Level 138 LDL Cholesterol, Calculated 65 HDL Cholesterol 56 Cholesterol/HDL Ratio 2.4 Thyroid Stimulating Hormone (TSH) 0.016 L Test 02/22/17 05:39 Lactic Acid Level 1.6 Medications Medications Current Medications Ondansetron HCl (Zofran Inj) 4 mg Q6H PRN IV NAUSEA AND/OR VOMITING; Start at 03:00 Acetaminophen (Tylenol Tab) 650 mg Q6H PRN PO PAIN LEVEL 1-3 OR FEVER; Start 02/22/17 at 03:00 Famotidine (Pepcid Iv) 20 mg Q12 IV Last administered on 02/22/17 09:27; Admin Dose 20 MG; Start 02/22/17 at 09:00 Methylprednisolone Sodium Succinate 30 mg 30 mg Q8 IV Last administered on 15:53; Admin Dose 30 MG; Start 02/22/17 at 06:00 Doxycycline Hyclate 100 mg/ Sodium Chloride 250 ml @ 250 mls/hr Q12 IVPB Last administered on 02/22/17 09:00; Admin Dose 250 MLS/HR; Start 02/22/17 at 09: 00 Sodium Chloride (NS) 1,000 ml @ 70 mls/hr [id number] IV Last administered on 06:00; Admin Dose 70 MLS/HR; Start 02/22/17 at 06:30 Escitalopram Oxalate (Lexapro) 10 mg DAILY PO Last administered on 02/22/17 09:27; Admin Dose 10 MG; Start 02/22/17 at 09:00 Heparin Sodium (Porcine) (Heparin (5000 Units/0.5 ml)) 5,000 unit Q12 SC ; Start 02/22/17 at 09:00 Lorazepam (Ativan) 1 mg Q6 PRN PO ANXIETY Last administered on 02/22/17 09:29 ; Admin Dose 1 MG; Start 02/22/17 at 07:00 Nicotine (Nicoderm 21 Mg/ 24hr) 1 patch DAILY TRANSDERM ; Start 02/22/17 at 09: 00 Ondansetron HCl (Zofran Tab) 8 mg Q8 PRN PO NAUSEA; Start 02/22/17 at 07:00 Prochlorperazine (Compazine) 10 mg Q6H PRN PO NAUSEA; Start 02/22/17 at 07:00 Tamsulosin HCl (Flomax) 0.4 mg BID PO Last administered on 02/22/17 09:26; Admin Dose 0.4 MG; Start 02/22/17 at 09:00 Trazodone HCl (Desyrel) 100 mg QHS PO ; Start 02/22/17 at 21:00 Salmeterol Xinafoate/ Fluticasone (Advair 250/50 Diskus) 1 inh BID INH Last administered on 02/22/17 15:53; Admin Dose 1 INH; Start 02/22/17 at 09:00 Atorvastatin Calcium (Lipitor) 10 mg DAILY@21 PO ; Start 02/22/17 at 21:00 Acetaminophen/ Hydrocodone Bitart ([place] (5/325)) 2 tab Q4H PRN PO PAIN LEVEL 6 -10 Last administered on 02/22/17 18:49; Admin Dose 2 TAB; Start 02/22/17 at 12:58 LAUREN ZAVALA MD Feb 22, 2017 18:52
[2017-02-22] MEDS: ATORVASTATIN 10 MG TAB PO SCH (21:30)
[2017-02-22] MEDS: traZODone 100 MG TAB PO SCH (21:32)
[2017-02-23] VITALS (12 sets, daily range): BP systolic 138–162; BP diastolic 66–80; PULSE 68–154; RESP 17–20
[2017-02-23] MEDS: HYDROCODONE/APAP (5/325) TAB PO PRN ×4 (01:01→22:54)
[2017-02-23] MEDS: ALBUTEROL/IPRATROPIUM (NEB) 3 ML AMP HHN SCH ×6 (01:08→20:01)
[2017-02-23] MEDS: METHYLPREDNISOLONE 40 MG INJ IV SCH ×3 (05:32→21:08)
[2017-02-23] MEDS: ESCITALOPRAM 10 MG TAB PO SCH (08:24)
[2017-02-23] MEDS: FAMOTIDINE 20 MG INJ IV SCH (08:24)
[2017-02-23] MEDS: TAMSULOSIN (SR) 0.4 MG CAP PO SCH ×2 (08:24→20:36)
[2017-02-23] MEDS: NICOTINE (21 MG/24 HR) PATCH TRANSDERM SCH (08:25)
[2017-02-23] MEDS: HEPARIN 5,000 UNIT/0.5 ML VIAL SC SCH ×2 (08:25→20:48)
[2017-02-23] MEDS: SALMETEROL/FLUTICASONE 250/50 INHA INH SCH ×2 (08:25→20:36)
[2017-02-23] MEDS: DOXYCYCLINE 100 MG in SOD CHLORIDE 0.9% 250 ML IVPB SCH ×2 (08:51→20:45)
[2017-02-23] MEDS: LORAZEPAM 1 MG TAB PO PRN ×2 (11:04→18:16)
[2017-02-23] MEDS: SOD CHLORIDE 0.9% 1,000 ML IV SCH (13:06)
--- NOTE | 2017-02-23 16:24 | PN ---
Date/Time of Note Date/Time of Note DATE: 02/23/17 TIME: 16:19 Assessment/Plan VTE Prophylaxis VTE Prophylaxis Intervention: LMWH Lines/Catheters IV Catheter Type (from Nrsg): Peripheral IV Urinary Cath still in place: No Assessment/Plan Chief Complaint/Hosp Course 66 yo mlae with heavy smoking history, COPD, unclear esophageal/liver malignancy reportedly on chemo presenting with COPD exacerbation, acute on chronic hypoxic and hypercapenic respiratory failure Acute COPD exacerbation, hypercapneic respiratory failure, hypoxic respiratory failure - Continue nebs, steroids, abx - O2 by NC to O2 88-92% - BIPAP may be needed at night for chronic hypercapnea - Improving somewhat H/o esphageal/liver cancer - Further managmeent per outside oncologist as outpatient Tobacco use d/o: - Nicotine patch BPH: - Flomax PPx: LMWH Problems: Subjective 24 Hr Interval Summary Free Text/Dictation Still very wheezy, SOB but stable/nonlabored Exam/Review of Systems Vital Signs Vitals Vital Signs Date Time Temp Pulse Resp B/P Pulse Ox O2 Delivery O2 Flow Rate FiO2 02/23/17 16:01 97.9 80 20 144/70 96 02/23/17 14:07 Nasal Cannula 2.0 02/22/17 00:57 21 Intake and Output 02/22/17 02/22/17 02/23/17 15:00 23:00 07:00 Intake Total 500 ml 400 ml Output Total 700 ml Balance 500 ml -300 ml Exam Nonlabored Pursed lips on expiration Lungs with slightly prolonged exp phase, wheezing Results Result Diagram: 02/22/17 0400 02/22/17 0400 Medications Medications Current Medications Ondansetron HCl (Zofran Inj) 4 mg Q6H PRN IV NAUSEA AND/OR VOMITING; Start at 03:00 Acetaminophen (Tylenol Tab) 650 mg Q6H PRN PO PAIN LEVEL 1-3 OR FEVER; Start 02/22/17 at 03:00 Methylprednisolone Sodium Succinate 30 mg 30 mg Q8 IV Last administered on 14:48; Admin Dose 30 MG; Start 02/22/17 at 06:00 Doxycycline Hyclate 100 mg/ Sodium Chloride 250 ml @ 250 mls/hr Q12 IVPB Last administered on 02/23/17 08:51; Admin Dose 250 MLS/HR; Start 02/22/17 at 09: 00 Sodium Chloride (NS) 1,000 ml @ 70 mls/hr [id number] IV Last administered on 13:06; Admin Dose 70 MLS/HR; Start 02/22/17 at 06:30 Escitalopram Oxalate (Lexapro) 10 mg DAILY PO Last administered on 02/23/17 08:24; Admin Dose 10 MG; Start 02/22/17 at 09:00 Heparin Sodium (Porcine) (Heparin (5000 Units/0.5 ml)) 5,000 unit Q12 SC Last administered on 02/22/17 21:30; Admin Dose 5,000 UNIT; Start 02/22/17 at 09: 00 Lorazepam (Ativan) 1 mg Q6 PRN PO ANXIETY Last administered on 02/23/17 11:04 ; Admin Dose 1 MG; Start 02/22/17 at 07:00 Nicotine (Nicoderm 21 Mg/ 24hr) 1 patch DAILY TRANSDERM ; Start 02/22/17 at 09: 00 Ondansetron HCl (Zofran Tab) 8 mg Q8 PRN PO NAUSEA; Start 02/22/17 at 07:00 Prochlorperazine (Compazine) 10 mg Q6H PRN PO NAUSEA; Start 02/22/17 at 07:00 Tamsulosin HCl (Flomax) 0.4 mg BID PO Last administered on 02/23/17 08:24; Admin Dose 0.4 MG; Start 02/22/17 at 09:00 Trazodone HCl (Desyrel) 100 mg QHS PO Last administered on 02/22/17 21:32; Admin Dose 100 MG; Start 02/22/17 at 21:00 Salmeterol Xinafoate/ Fluticasone (Advair 250/50 Diskus) 1 inh BID INH Last administered on 02/23/17 08:25; Admin Dose 1 INH; Start 02/22/17 at 09:00 Atorvastatin Calcium (Lipitor) 10 mg DAILY@21 PO Last administered on 21:30; Admin Dose 10 MG; Start 02/22/17 at 21:00 Acetaminophen/ Hydrocodone Bitart ([place] (5/325)) 2 tab Q4H PRN PO PAIN LEVEL 6 -10 Last administered on 10/18/17at 14:48; Admin Dose 2 TAB; Start 02/22/17 at 12:58 Famotidine (Pepcid) 20 mg Q12 PO ; Start 02/23/17 at 21:00 LAUREN ZAVALA MD Feb 23, 2017 16:24
[2017-02-23] MEDS: FAMOTIDINE 20 MG TAB PO SCH (20:36)
[2017-02-23] MEDS: traZODone 100 MG TAB PO SCH (20:36)
[2017-02-23] MEDS: ATORVASTATIN 10 MG TAB PO SCH (20:36)
[2017-02-24] VITALS (11 sets, daily range): BP systolic 113–163; BP diastolic 71–96; PULSE 68–87; RESP 17–20
[2017-02-24 01:27] LABS: ADD UMIC NO; UR ASCORBIC ACID NEGATIVE (NEGATIVE); UR BILIRUBIN (Dip) NEGATIVE (NEGATIVE); UR BLOOD (Dip) NEGATIVE (NEGATIVE); UR CLARITY CLEAR (CLEAR); UR COLOR STRAW (YELLOW); UR GLUCOSE (Dip) NEGATIVE (NEGATIVE); UR KETONES (Dip) NEGATIVE (NEGATIVE); UR LEUKOCYTE ESTERASE (Dip) NEGATIVE Leu/ul (NEGATIVE); UR NITRITE (Dip) NEGATIVE (NEGATIVE); UR SPECIFIC GRAVITY (Dip) 1.011 (1.003-1.030); UR TOTAL PROTEIN (Dip) NEGATIVE (NEGATIVE); UR UROBILINOGEN (Dip) NEGATIVE (NEGATIVE)
[2017-02-24] MEDS: LORAZEPAM 1 MG TAB PO PRN ×4 (01:42→18:32)
[2017-02-24] MEDS: ALBUTEROL/IPRATROPIUM (NEB) 3 ML AMP HHN SCH ×6 (04:47→20:16)
[2017-02-24] MEDS: HYDROCODONE/APAP (5/325) TAB PO PRN ×3 (05:03→15:03)
[2017-02-24] MEDS: METHYLPREDNISOLONE 40 MG INJ IV SCH ×3 (05:03→21:35)
[2017-02-24] MEDS: SALMETEROL/FLUTICASONE 250/50 INHA INH SCH ×2 (08:19→21:35)
[2017-02-24] MEDS: TAMSULOSIN (SR) 0.4 MG CAP PO SCH ×2 (08:20→21:42)
[2017-02-24] MEDS: FAMOTIDINE 20 MG TAB PO SCH ×2 (08:20→21:43)
[2017-02-24] MEDS: ESCITALOPRAM 10 MG TAB PO SCH (08:20)
[2017-02-24] MEDS: NICOTINE (21 MG/24 HR) PATCH TRANSDERM SCH (08:21)
[2017-02-24] MEDS: DOXYCYCLINE 100 MG in SOD CHLORIDE 0.9% 250 ML IVPB SCH ×2 (08:54→21:35)
[2017-02-24] MEDS: HEPARIN 5,000 UNIT/0.5 ML VIAL SC SCH ×2 (08:55→21:00)
[2017-02-24 09:18] LABS: ABNORMAL IP MESSAGE 1; BASOPHILS % 0.1 % (0.0-2.0); HEMATOCRIT 31.4 % (42.0-52.0); HEMOGLOBIN 9.9 g/dl (14.0-18.0); LYMPHOCYTES # 0.2 10^3/ul (0.8-2.9); LYMPHOCYTES % 1.3 % (15.0-51.0); MEAN CORPUSCULAR HEMOGLOBIN 25.4 pg (29.0-33.0); MEAN CORPUSCULAR HGB CONC 31.5 g/dl (32.0-37.0); MEAN CORPUSCULAR VOLUME 80.7 fl (82.0-101.0); MEAN PLATELET VOLUME 10.1 fl (7.4-10.4); MONOCYTE # 0.6 10^3/ul (0.3-0.9); MONOCYTES % 4.8 % (0.0-11.0); NEUTROPHILS % 92.2 % (39.0-77.0); PLATELET COUNT 179 10^3/UL (140-415); POSITIVE DIFF @See below; RED BLOOD COUNT 3.89 10^6/ul (4.70-6.10); RED CELL DISTRIBUTION WIDTH 14.3 % (11.5-14.5)
[2017-02-24 09:40] LABS: CALCIUM 9.1 mg/dl (8.4-10.2); CREATININE 0.55 mg/dl (0.61-1.24); POTASSIUM 3.7 mmol/L (3.5-5.1)
[2017-02-24] MEDS: ACETYLCYSTEINE 20% 4 ML VIAL NEB PRN ×3 (12:10→20:21)
[2017-02-24] MEDS ORDERED: CEPASTAT LOZENGE MT PRN (16:30)
[2017-02-24] MEDS: MAGNESIUM HYDROXIDE 30ML CUP PO PRN (18:36)
[2017-02-24] MEDS: ATORVASTATIN 10 MG TAB PO SCH (21:42)
[2017-02-24] MEDS: traZODone 100 MG TAB PO SCH (21:43)
[2017-02-25] VITALS (10 sets, daily range): BP systolic 140–150; BP diastolic 74–98; PULSE 62–76; RESP 18–20
[2017-02-25] MEDS: ALBUTEROL/IPRATROPIUM (NEB) 3 ML AMP HHN SCH ×7 (00:58→21:15)
[2017-02-25] MEDS: HYDROCODONE/APAP (5/325) TAB PO PRN ×4 (03:45→22:38)
[2017-02-25] MEDS: LORAZEPAM 1 MG TAB PO PRN ×3 (05:05→17:47)
[2017-02-25] MEDS: METHYLPREDNISOLONE 40 MG INJ IV SCH ×3 (05:05→22:39)
[2017-02-25] MEDS: SALMETEROL/FLUTICASONE 250/50 INHA INH SCH ×2 (08:57→20:42)
[2017-02-25] MEDS: HEPARIN 5,000 UNIT/0.5 ML VIAL SC SCH ×3 (08:58→20:52)
[2017-02-25] MEDS: FAMOTIDINE 20 MG TAB PO SCH ×2 (09:00→20:43)
[2017-02-25] MEDS: TAMSULOSIN (SR) 0.4 MG CAP PO SCH ×2 (09:00→20:42)
[2017-02-25] MEDS: NICOTINE (21 MG/24 HR) PATCH TRANSDERM SCH (09:00)
[2017-02-25] MEDS: ESCITALOPRAM 10 MG TAB PO SCH (09:00)
[2017-02-25] MEDS: DOXYCYCLINE 100 MG in SOD CHLORIDE 0.9% 250 ML IVPB SCH ×2 (09:31→20:42)
[2017-02-25] MEDS: MAGNESIUM HYDROXIDE 30ML CUP PO PRN (11:24)
--- NOTE | 2017-02-25 13:11 | PN ---
Date/Time of Note Date/Time of Note DATE: 02/25/17 TIME: 13:11 Assessment/Plan VTE Prophylaxis VTE Prophylaxis Intervention: LMWH Lines/Catheters IV Catheter Type (from [facility]): Saline Lock Urinary Cath still in place: No Assessment/Plan Chief Complaint/Hosp Course 66 yo mlae with heavy smoking history, COPD, unclear esophageal/liver malignancy reportedly on chemo presenting with COPD exacerbation, acute on chronic hypoxic and hypercapenic respiratory failure Acute COPD exacerbation, hypercapneic respiratory failure, hypoxic respiratory failure - Continue nebs, steroids, abx - O2 by NC to O2 88-92% - BIPAP may be needed at night for chronic hypercapnea - Improving somewhat H/o esphageal/liver cancer - Further managmeent per outside oncologist as outpatient Tobacco use d/o: - Nicotine patch BPH: - Flomax PPx: LMWH Problems: Subjective 24 Hr Interval Summary Free Text/Dictation Complaints of throat irritation SOB still present, doesn't feel ready for discharge Exam/Review of Systems Vital Signs Vitals Vital Signs Date Time Temp Pulse Resp B/P Pulse Ox O2 Delivery O2 Flow Rate FiO2 02/25/17 13:05 2.5 02/25/17 13:05 64 20 96 Nasal Cannula 02/25/17 11:41 98.0 140/77 02/22/17 00:57 21 Intake and Output 02/24/17 02/24/17 02/25/17 15:00 23:00 07:00 Intake Total 1130 ml 500 ml Output Total 850 ml Balance 1130 ml -350 ml Exam Constitutional: alert, oriented, well developed Psych: nl mood/affect, no complaints Head: atraumatic, normocephalic Eyes: EOMI, PERRL, nl conjunctiva, nl lids, nl sclera ENMT: nl external ears & nose, nl lips & teeth, nl nasal mucosa & septum Neck: non-tender, supple Respiratory: clear to auscultation, normal air movement Cardiovascular: nl pulses, regular rate and rhythm Gastrointestinal: nl liver, spleen, non-tender, soft Musculoskeletal: nl extremities to inspection, nl gait and stance Extremities: normal pulses Neurological: RECREATION MANAGER II-XII intact, nl mental status, nl speech, nl strength Skin: nl turgor, No rash or lesions Lymph: nl lymph nodes Results Result Diagram: 10/19/17 0830 10/19/17 0830 Medications Medications Current Medications Ondansetron HCl (Zofran Inj) 4 mg Q6H PRN IV NAUSEA AND/OR VOMITING; Start at 03:00 Acetaminophen (Tylenol Tab) 650 mg Q6H PRN PO PAIN LEVEL 1-3 OR FEVER; Start 02/22/17 at 03:00 Methylprednisolone Sodium Succinate 30 mg 30 mg Q8 IV Last administered on 05:05; Admin Dose 30 MG; Start 02/22/17 at 06:00 Doxycycline Hyclate/Sodium Chloride (Vibramycin/NS) 250 ml @ 250 mls/hr Q12 IVPB Last administered on 02/25/17 09:31; Admin Dose 250 MLS/HR; Start 02/22 at 09:00 Escitalopram Oxalate (Lexapro) 10 mg DAILY PO Last administered on 02/25/17 09:00; Admin Dose 10 MG; Start 02/22/17 at 09:00 Heparin Sodium (Porcine) (Heparin (5000 Units/0.5 ml)) 5,000 unit Q12 SC Last administered on 02/22/17 21:30; Admin Dose 5,000 UNIT; Start 02/22/17 at 09: 00 Lorazepam (Ativan) 1 mg Q6 PRN PO ANXIETY Last administered on 02/25/17 11:24 ; Admin Dose 1 MG; Start 02/22/17 at 07:00 Nicotine (Nicoderm 21 Mg/ 24hr) 1 patch DAILY TRANSDERM Last administered on 09:00; Admin Dose 1 PATCH; Start 02/22/17 at 09:00 Ondansetron HCl (Zofran Tab) 8 mg Q8 PRN PO NAUSEA; Start 02/22/17 at 07:00 Prochlorperazine (Compazine) 10 mg Q6H PRN PO NAUSEA; Start 02/22/17 at 07:00 Tamsulosin HCl (Flomax) 0.4 mg BID PO Last administered on 02/25/17 09:00; Admin Dose 0.4 MG; Start 02/22/17 at 09:00 Trazodone HCl (Desyrel) 100 mg QHS PO Last administered on 02/24/17 21:43; Admin Dose 100 MG; Start 02/22/17 at 21:00 Salmeterol Xinafoate/ Fluticasone (Advair 250/50 Diskus) 1 inh BID INH Last administered on 02/25/17 08:57; Admin Dose 1 INH; Start 02/22/17 at 09:00 Atorvastatin Calcium (Lipitor) 10 mg DAILY@21 PO Last administered on 21:42; Admin Dose 10 MG; Start 02/22/17 at 21:00 Acetaminophen/ Hydrocodone Bitart ([place] (5/325)) 2 tab Q4H PRN PO PAIN LEVEL 6 -10 Last administered on 02/25/17 11:24; Admin Dose 2 TAB; Start 02/22/17 at 12:58 Famotidine (Pepcid) 20 mg Q12 PO Last administered on 02/25/17 09:00; Admin Dose 20 MG; Start 02/23/17 at 21:00 Phenol (Cepastat Lozenge) 1 lozenge Q1H PRN MT COUGH Last administered on 02/24 18:36; Admin Dose 1 LOZENGE; Start 02/24/17 at 16:30 Magnesium Hydroxide (Milk Of Mag) 30 ml BID PRN PO CONSTIPATION Last administered on 02/25/17 11:24; Admin Dose 30 ML; Start 02/24/17 at 16:30 LAUREN ZAVALA MD Feb 25, 2017 13:11
[2017-02-25] MEDS: traZODone 100 MG TAB PO SCH (20:42)
[2017-02-25] MEDS: ATORVASTATIN 10 MG TAB PO SCH (20:42)
[2017-02-26] VITALS (7 sets, daily range): BP systolic 118–150; BP diastolic 60–84; PULSE 69–75; RESP 18–20
[2017-02-26] MEDS: ALBUTEROL/IPRATROPIUM (NEB) 3 ML AMP HHN SCH ×6 (01:13→20:27)
[2017-02-26] MEDS: LORAZEPAM 1 MG TAB PO PRN ×4 (03:28→22:12)
[2017-02-26] MEDS: HYDROCODONE/APAP (5/325) TAB PO PRN ×5 (03:41→23:11)
[2017-02-26] MEDS: METHYLPREDNISOLONE 40 MG INJ IV SCH ×3 (05:23→21:32)
[2017-02-26] MEDS: HEPARIN 5,000 UNIT/0.5 ML VIAL SC SCH ×2 (09:00→20:37)
[2017-02-26] MEDS: ESCITALOPRAM 10 MG TAB PO SCH (09:08)
[2017-02-26] MEDS: FAMOTIDINE 20 MG TAB PO SCH ×2 (09:08→20:36)
[2017-02-26] MEDS: SALMETEROL/FLUTICASONE 250/50 INHA INH SCH ×2 (09:08→20:36)
[2017-02-26] MEDS: TAMSULOSIN (SR) 0.4 MG CAP PO SCH ×2 (09:08→20:36)
[2017-02-26] MEDS: NICOTINE (21 MG/24 HR) PATCH TRANSDERM SCH (09:09)
[2017-02-26] MEDS: ACETYLCYSTEINE 20% 4 ML VIAL NEB PRN (09:51)
[2017-02-26] MEDS: DOXYCYCLINE 100 MG in SOD CHLORIDE 0.9% 250 ML IVPB SCH ×2 (10:18→20:47)
--- NOTE | 2017-02-26 19:14 | PN ---
Date/Time of Note Date/Time of Note DATE: 02/26/17 TIME: 19:13 Assessment/Plan VTE Prophylaxis VTE Prophylaxis Intervention: LMWH Lines/Catheters IV Catheter Type (from Nrs): Saline Lock Urinary Cath still in place: No Assessment/Plan Chief Complaint/Hosp Course 66 yo male with heavy smoking history, COPD, unclear esophageal/liver malignancy reportedly on chemo presenting with COPD exacerbation, acute on chronic hypoxic and hypercapenic respiratory failure Acute COPD exacerbation, hypercapneic respiratory failure, hypoxic respiratory failure - Continue nebs, steroids, abx - O2 by NC to O2 88-92% - BIPAP may be needed at night for chronic hypercapnea - Improving somewhat H/o esphageal/liver cancer - Further managmeent per outside oncologist as outpatient Tobacco use d/o: - Nicotine patch BPH: - Flomax PPx: LMWH Problems: Subjective 24 Hr Interval Summary Free Text/Dictation Still SOB but appears to be at his baseline Ready for dc home tomorrow he says Exam/Review of Systems Vital Signs Vitals Vital Signs Date Time Temp Pulse Resp B/P Pulse Ox O2 Delivery O2 Flow Rate FiO2 02/26/17 16:48 94 2.0 02/26/17 16:48 64 22 Nasal Cannula 02/26/17 13:57 97.7 118/69 Intake and Output 02/25/17 02/25/17 02/26/17 15:00 23:00 07:00 Intake Total 750 ml 500 ml Output Total 400 ml 400 ml Balance 350 ml 100 ml Exam Constitutional: alert, oriented, well developed Psych: nl mood/affect, no complaints Head: atraumatic, normocephalic Eyes: EOMI, PERRL, nl conjunctiva, nl lids, nl sclera ENMT: nl external ears & nose, nl lips & teeth, nl nasal mucosa & septum Neck: non-tender, supple Respiratory: clear to auscultation, normal air movement Cardiovascular: nl pulses, regular rate and rhythm Gastrointestinal: nl liver, spleen, non-tender, soft Musculoskeletal: nl extremities to inspection, nl gait and stance Extremities: normal pulses Neurological: LINUX SOLARIS ADMINISTRATOR II-XII intact, nl mental status, nl speech, nl strength Skin: nl turgor, No rash or lesions Lymph: nl lymph nodes Results Result Diagram: 02/24/1782902/24/17829 Medications Medications Current Medications Ondansetron HCl (Zofran Inj) 4 mg Q6H PRN IV NAUSEA AND/OR VOMITING; Start at 03:00 Acetaminophen (Tylenol Tab) 650 mg Q6H PRN PO PAIN LEVEL 1-3 OR FEVER; Start 02/22/17 at 03:00 Methylprednisolone Sodium Succinate 30 mg 30 mg Q8 IV Last administered on 14:07; Admin Dose 30 MG; Start 02/22/17 at 06:00 Doxycycline Hyclate/Sodium Chloride (Vibramycin/NS) 250 ml @ 250 mls/hr Q12 IVPB Last administered on 02/26/17 10:18; Admin Dose 250 MLS/HR; Start 02/22 at 09:00 Escitalopram Oxalate (Lexapro) 10 mg DAILY PO Last administered on 02/26/17 09:08; Admin Dose 10 MG; Start 02/22/17 at 09:00 Heparin Sodium (Porcine) (Heparin (5000 Units/0.5 ml)) 5,000 unit Q12 SC Last administered on 02/22/17 21:30; Admin Dose 5,000 UNIT; Start 02/22/17 at 09: 00 Lorazepam (Ativan) 1 mg Q6 PRN PO ANXIETY Last administered on 02/26/17 16:00 ; Admin Dose 1 MG; Start 02/22/17 at 07:00 Nicotine (Nicoderm 21 Mg/ 24hr) 1 patch DAILY TRANSDERM Last administered on 09:09; Admin Dose 1 PATCH; Start 02/22/17 at 09:00 Ondansetron HCl (Zofran Tab) 8 mg Q8 PRN PO NAUSEA; Start 02/22/17 at 07:00 Prochlorperazine (Compazine) 10 mg Q6H PRN PO NAUSEA; Start 02/22/17 at 07:00 Tamsulosin HCl (Flomax) 0.4 mg BID PO Last administered on 02/26/17 09:08; Admin Dose 0.4 MG; Start 02/22/17 at 09:00 Trazodone HCl (Desyrel) 100 mg QHS PO Last administered on 02/25/17 20:42; Admin Dose 100 MG; Start 02/22/17 at 21:00 Salmeterol Xinafoate/ Fluticasone (Advair 250/50 Diskus) 1 inh BID INH Last administered on 02/26/17 09:08; Admin Dose 1 INH; Start 02/22/17 at 09:00 Atorvastatin Calcium (Lipitor) 10 mg DAILY@21 PO Last administered on 20:42; Admin Dose 10 MG; Start 02/22/17 at 21:00 Acetaminophen/ Hydrocodone Bitart ([place] (5/325)) 2 tab Q4H PRN PO PAIN LEVEL 6 -10 Last administered on 02/26/17 18:29; Admin Dose 2 TAB; Start 02/22/17 at 12:58 Famotidine (Pepcid) 20 mg Q12 PO Last administered on 02/26/17 09:08; Admin Dose 20 MG; Start 02/23/17 at 21:00 Phenol (Cepastat Lozenge) 1 lozenge Q1H PRN MT COUGH Last administered on 02/24 18:36; Admin Dose 1 LOZENGE; Start 02/24/17 at 16:30 Magnesium Hydroxide (Milk Of Mag) 30 ml BID PRN PO CONSTIPATION Last administered on 02/25/17 11:24; Admin Dose 30 ML; Start 02/24/17 at 16:30 LAUREN ZAVALA MD Feb 26, 2017 19:14
[2017-02-26] MEDS: ATORVASTATIN 10 MG TAB PO SCH (20:36)
[2017-02-26] MEDS: traZODone 100 MG TAB PO SCH (20:36)
[2017-02-27] MEDS: ALBUTEROL/IPRATROPIUM (NEB) 3 ML AMP HHN SCH ×4 (00:53→12:16)
[2017-02-27] MEDS: METHYLPREDNISOLONE 40 MG INJ IV SCH ×2 (05:05→13:31)
[2017-02-27] MEDS: HYDROCODONE/APAP (5/325) TAB PO PRN ×3 (05:05→13:32)
[2017-02-27] MEDS: LORAZEPAM 1 MG TAB PO PRN ×2 (07:43→14:35)
[2017-02-27 07:54] VITALS: BP 152/73; RESP 17
[2017-02-27] MEDS: FAMOTIDINE 20 MG TAB PO SCH (08:35)
[2017-02-27] MEDS: TAMSULOSIN (SR) 0.4 MG CAP PO SCH (08:35)
[2017-02-27] MEDS: DOXYCYCLINE 100 MG in SOD CHLORIDE 0.9% 250 ML IVPB SCH (08:35)
[2017-02-27] MEDS: SALMETEROL/FLUTICASONE 250/50 INHA INH SCH (08:35)
[2017-02-27] MEDS: ESCITALOPRAM 10 MG TAB PO SCH (08:36)
[2017-02-27] MEDS: NICOTINE (21 MG/24 HR) PATCH TRANSDERM SCH (08:36)
[2017-02-27] MEDS: HEPARIN 5,000 UNIT/0.5 ML VIAL SC SCH (08:36)
--- NOTE | 2017-02-27 14:23 | PDOCDIS ---
Discharge Instructions DIAGNOSIS Discharge Diagnosis COPD exacerbation CONDITION Patient Condition: Fair HOME CARE INSTRUCTIONS: Special Diet: cardiac diet FOLLOW UP/APPOINTMENTS Follow-up Plan It is very important for you to use your inhalers as prescribed every single day Wear your oxygen as well always Follow up with your primary doctor in clinic in the coming days Return to the hospital if you feel your breathing is getting worse or if you have any other concerning symptoms LAUREN ZAVALA MD Feb 27, 2017 14:23
--- NOTE | 2017-02-27 14:24 | DS ---
Date/Time of Note Date/Time of Note DATE: 02/27/17 TIME: 14:23 Discharge Summary Admission/Discharge Info Admit Date/Time Feb 22, 2017 at 02:37 Discharge Date/Time Discharge Diagnosis COPD exacerbation Hx of Present Illness Chief complaint: Shortness of breath This is a 66-year-old male with a history of COPD and esophageal adenocarcinoma with liver metastases and new left lung mass, presenting to the ER by ambulance with shortness of breath that got worse today. He was admitted to [facility] about 3 days ago for similar symptoms. He was discharged with Levaquin and steroids. However today at home he got significantly worse. His inhalers at home are not helping. He denies any fever or chills. No chest pain. He was discharged on 02/18/2017 at that hospital stay he was treated for COPD exacerbation and he was found to have a new lung mass of the right chest. He was to follow-up with his oncologist for further workup. Allergies: NKDA Medications: See [facility] Hospital Course The patient was found to be in acute COPD exacerbation. He required O2 by SC at his stable home flow rate of 2 LPM. He was treated with steroids, bronchodilators and abx. His respiratory status gradually returned to baseline over a few days. He continues to require supplemental O2. 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 Home Meds Active Scripts Nicotine* (Nicotine* Patch) 21 mg/day Patch, 1 PATCH TRANSDERM DAILY for 1 Day Prov:INEZ BECKWITH MD 07/29/16 Heparin Sod (Porcine)* (Heparin*) 5,000 Unit/0.5 Ml Soln, 5000 UNIT SC Q12 for 1 Day Prov:INEZ BECKWITH MD 07/29/16 Atenolol (Tenormin) 25 Mg Tab, 25 MG PO BID for 1 Day, TAB Prov:INEZ BECKWITH MD 07/29/16 Albuterol/Ipratropium* (Combivent Respimat*) 20-100 Mcg/Inh - 4 Gm Aer.w.adap, 1 PUFF INHALATION QID, #1 INHALER Prov:TOM BARCLAY MD 04/20/16 Albuterol Sulfate* (Proair HFA*) 8.5 Gm Hfa.aer.ad, 2 PUFF INH Q4, #1 INHALER 2 Refills Prov:TOM BARCLAY MD 04/20/16 Budesonide-Formoterol Fumarate* (Symbicort*) 160-4.5 Hfa.aer.ad, 2 PUFF INHALATION BID, #1 EACH 2 Refills Prov:TOM BARCLAY MD 04/20/16 Trazodone Hcl* (Trazodone Hcl*) 100 Mg Tablet, 100 MG PO QHS, #30 TAB 2 Refills Prov:TOM BARCLAY MD 04/20/16 Lorazepam* (Lorazepam*) 1 Mg Tablet, 1 MG PO Q6 Y for ANXIETY, #60 TAB 2 Refills Prov:TOM BARCLAY MD 04/20/16 Tamsulosin Hcl* (Flomax*) 0.4 Mg Cap.er.24h, 0.4 MG PO BID for 30 Days, CAP 2 Refills Prov:TOM BARCLAY MD 04/20/16 Reported Medications Escitalopram Oxalate* (Escitalopram Oxalate*) 10 Mg Tablet, 10 MG PO DAILY, #30 TAB 02/22/17 Pantoprazole* (Protonix*) 40 Mg Tablet.dr, 40 MG PO DAILY, TAB 04/16/16 Pravastatin Sodium* (Pravastatin Sodium*) 20 Mg Tablet, 20 MG PO HS, TAB 04/16/16 Hydrocodone/Acetaminophen ([place] 5-325 Tablet) 1 Each Tablet, 1 EACH PO Q6H Y for PRN, TAB 04/16/16 Discontinued Reported Medications Ondansetron Hcl* (Ondansetron Hcl*) 8 Mg Tablet, 8 MG PO Q8 Y for NAUSEA, TAB TAKE AFTHER CHEMO 1 DAY TID AND OTHER DAYS DAILY 04/16/16 Prochlorperazine* (Prochlorperazine*) 10 Mg Tablet, 10 MG PO Q6H Y for NAUSEA, TAB 04/16/16 Discontinued Scripts Levofloxacin* (Levaquin*) 750 Mg Tablet, 750 MG PO DAILY for 4 Days, TAB Prov:FAVIAN MCKENNA MD 01/09/17 Prednisone* (Prednisone*) 20 Mg Tab, 60 MG PO DAILY for 5 Days, TAB Prov:FAVIAN MCKENNA MD 01/09/17 Methylprednisolone Sodium Succinate (Solu-Medrol) 125 Mg Soln, 80 MG IV Q8H for 1 Day Prov:INEZ BECKWITH MD 07/29/16 Fluticasone Propionate* (Fluticasone Propionate* Nasal) 50 Mcg/[place] - 16 Gm [place].susp, 1 SPRAY NASAL BID Y for stuffy nose, #1 Prov:TOM BARCLAY MD 04/20/16 Throat Lozenges* (Cepastat*) 9 Jenn Lozenge, 1 LOZENGE MT Q4H Y for SORE THROAT for 30 Days, LOZENGE Prov:TOM BARCLAY MD 04/20/16 Guaifenesin-Codeine Phosphate* (Robitussin* AC) 5 Ml Syrup, 10 ML PO Q6H Y for for cough, #1 1 Refill Prov:TOM BARCLAY MD 04/20/16 Tiotropium [place]* (Spiriva*) 18 Mcg Cap.w.dev, 1 CAP INHALATION DAILY, #30 CAP 2 Refills Prov:TOM BARCLAY MD 04/20/16 Follow-up Plan It is very important for you to use your inhalers as prescribed every single day Wear your oxygen as well always Follow up with your primary doctor in clinic in the coming days Return to the hospital if you feel your breathing is getting worse or if you have any other concerning symptoms Primary Care Provider Not On Staff Doctor Pending Labs Laboratory Tests Test 02/27/17 11:36 Lab Scanned Report REFERENCE [id number] LAUREN ZAVALA MD Feb 27, 2017 14:24
[2017-02-27 14:26] VITALS: BP 159/62; RESP 19
== END 2017-02-27 16:30 | disposition home or self-care (01) | DRG 190 ==
LOC: E/R 00:25 → MS4 02:37 → PP2 02-26 06:00
PROVIDERS: ADMIT Family Medicine; ATTEND Family Medicine
DX: J44.1 Chronic obstructive pulmonary disease with (acute) exacerbation (principal); J96.21 Acute and chronic respiratory failure with hypoxia; C15.9 Malignant neoplasm of esophagus, unspecified; E87.2 Acidosis; C78.7 Secondary malignant neoplasm of liver and intrahepatic bile duct; C78.02 Secondary malignant neoplasm of left lung; J96.22 Acute and chronic respiratory failure with hypercapnia; I10 Essential (primary) hypertension; Z86.73 Personal history of transient ischemic attack (TIA), and cerebral infarction without residual deficits; Z87.891 Personal history of nicotine dependence
CPT/HCPCS: 36415; 71010; 80048; 80053; 80061; 81003; 82803; 83036; 83605; 83735; 84439; 84443; 84484; 85025; 87040; 87070; 87081; 87086; 87275; 87276; 87279; 87280; 93005; 94640; 94664; 94667; 94668; 96374; 96375; J1644; J1956; J2920; J2930; J3370; J7030; J7050

== ENCOUNTER → 2017-03-27 | Outpatient (CLI) | payer MEDICARE, OTHER ==
[~2017-03-27] MED LIST changes: -CEPASTAT MT; +ESCI10TA48 PO; -FLUT16SP17 NASAL; +IOHEXOL 300MG/ML 150 ML BTL ONE; -LEVO750T25 PO; -ONDA8TAB83 PO; -PRED20TA PO; -PROC10TA10 PO; +SOD CHLORIDE 0.9% 100 ML ONE; -TIOT18CA INHALATION; -UDROBAC PO; -[UNRECOGNIZED DRUG - CODE] IV
--- NOTE | 2017-03-28 17:21 | RADRPT ---
PROCEDURE: CT Abdomen and Pelvis with contrast. CLINICAL INDICATION: Abdomen and pelvis pain. History of liver cancer. TECHNIQUE: CT scan of the abdomen and pelvis with contrast was performed. The patient was scanned following the uncomplicated intravenous administration of 100 cc of Omnipaque-300. Coronal and sag ittal reformatted images were obtained from the axial source images. Images were reviewed on a high- resolution PACS workstation. Total exam DLP is 201.91 mGy-cm. CTDIvol is 4.16 mGy. One or more of the following dose reduction techniques were used: Automated exposure control, adjustment of the mA and/or kV according to patient size, use of iterative reconstruction technique. DICOM images are av ailable. COMPARISON: None. FINDINGS: Mild emphysematous changes are present at the lung bases. The lung bases are otherwise normal. Ther e is no pleural effusion. There are multiple masses throughout the entire liver consistent with neoplasm with the largest in t he right lobe measuring 4.5 cm and the largest in the left lobe measuring 4.1 cm in maximal dimensio n. The gallbladder and bile ducts are normal. The spleen is normal in size. There is no focal splenic lesion. Both adrenals are normal with no enlargement or mass. The pancreas is unremarkable with no mass or evidence of pancreatitis. Both kidneys demonstrate normal contrast enhancement. There is no solid renal mass or hydronephros is. There is a benign cyst in the upper right kidney medially measuring 4.1 cm. The abdominal aorta is not dilated. There is calcification in the aorta consistent with atherosclero sis. There is probable high-grade stenosis of the right common iliac artery. There are multiple mildly enlarged para-aortic retroperitoneal lymph nodes with the largest in the l eft renal hilum region measuring 1.9 x 1.7 cm. There is no pelvic lymphadenopathy or mass. The bladder is distended. The distal ureters are normal. The periappendiceal region is unremarkable with no evidence of appendicitis. The bowel and mesentery are normal. There is no free fluid or free gas. There are degenerative changes of the spine. The osseous structures are otherwise unremarkable with no fracture or lytic lesion. IMPRESSION: 1. Mild emphysematous changes at the lung bases. 2. Multiple liver masses consistent with neoplasm. 3. Benign right renal cysts. 4. Atherosclerosis. 5. Probable high-grade stenosis of the right common iliac artery. 6. Retroperitoneal lymphadenopathy suspicious for neoplasm. 7. Distended urinary bladder. 8. Degenerative changes of the spine. 9. Otherwise unremarkable contrast enhanced CT scan of the abdomen and pelvis. RPTAT: QQ .Tyson Sandoval MD, Date Time Electronically viewed and signed by .Tyson Sandoval MD, on 03/28/2017 17:20 .R/
== END | disposition home or self-care (01) ==
LOC: RAD 22:33
PROVIDERS: ATTEND Internal Medicine Nephrology
DX: J43.9 Emphysema, unspecified (principal); N28.1 Cyst of kidney, acquired; N32.89 Other specified disorders of bladder; D49.0 Neoplasm of unspecified behavior of digestive system
CPT/HCPCS: 74177; Q9967

== ENCOUNTER → 2017-03-29 | Day surgery (SDC) | payer OTHER ==
[2017-03-29] VITALS (7 sets, daily range): BP systolic 96–111; BP diastolic 56–65; PULSE 104–121; RESP 18–33; Ht 172.7 cm; Wt 42.6 kg
[~2017-03-29] VITALS: Ht 172.7 cm; Wt 42.6 kg
[~2017-03-29] MED LIST changes: +CEFAZOLIN 1 GM INJ ONE; -IOHEXOL 300MG/ML 150 ML BTL ONE; +PHENYLephrine (100 MCG/ML) 5ML SYG ONE; +PROPOFOL 20 ML ONE; -SOD CHLORIDE 0.9% 100 ML ONE
--- NOTE | 2017-03-29 18:20 | OPR ---
Date/Time of Note Date/Time of Note DATE: 03/29/17 TIME: 18:16 Operative Report Procedure Date: Mar 29, 2017 Preoperative Diagnosis dysphagia Postoperative Diagnosis same Operation/Procedure Performed egd and peg performed Surgeon see signature line Personal Companion none Anesthesia Type: MAC Anesthesiologist: TERRENCE RODRIGUEZ MD Estimated Blood Loss: none Transfusion none Specimen none Grafts/Implants none Tubes/Drains none Complications none Pt Condition Post Procedure: stable Indications dysphagia Procedure Description egd and peg performed under ELENA COOK MD Mar 29, 2017 18:20
--- NOTE | 2017-03-29 19:34 | GILP ---
DATE OF PROCEDURE: 03/29/2017 NAME OF PROCEDURE: Esophagogastroduodenoscopy, percutaneous endoscopic gastrostomy tube placement. PREOPERATIVE DIAGNOSIS: Patient presenting with history of difficulty in swallowing and has malnour ished status and weight loss and because of this, percutaneous endoscopic gastrostomy tube needs to be placed for long-term nutritional support. POSTOPERATIVE DIAGNOSES: Patient presenting with history of difficulty in swallowing and has malnou rished status and weight loss and because of this, percutaneous endoscopic gastrostomy tube needs to be placed for long-term nutritional support. DESCRIPTION OF PROCEDURE: After informed written consent was obtained, the patient was put in prone position. Intravenous anesthesia was given by anesthesiologist, Dr. Lock. When the patient becam e somnolent, the Olympus video upper endoscope was introduced into the oropharynx, then into the eso phagus. Esophagus appeared normal. Stomach appeared normal. Duodenum appeared normal. Endoscope at this time was withdrawn to the level of the gastric cavity. The anterior abdominal wall was prep ared with Betadine and alcohol. A 2 mL of 2% Xylocaine was infiltrated at the endoscopic illuminati ng site. At this time, 5 mm incision was made by using the scalpel. Through this incision, trocar was inserted into the stomach and stylet was removed. Through the trocar, a guidewire was inserted into the stomach and the guidewire was grabbed with a polypectomy snare and then the guidewire was b rought out through the mouth along with the endoscope. Through this end of the guidewire, a #20 Akhil rovasive G-tube was tied in a loop fashion and then it was brought out through the abdominal wall in cision. Retention bumper was placed over the G-tube close to the skin. Tapered end of the gastrost bladimir tube was cut, the adapter was placed, and the procedure was terminated. PLAN: Recommend starting G-tube feeding in a.m. Dictated By: ELENA HENRY/TRISTAN Conf#: [id number] DID#: [id number] CC: PAMELLA ANDRADE DO;*EndCC*
== END | disposition home or self-care (01) ==
LOC: SUR 16:39 → SDS 16:42
PROVIDERS: ATTEND Internal Medicine Gastroenterology
DX: R13.10 Dysphagia, unspecified (principal); E46 Unspecified protein-calorie malnutrition; I10 Essential (primary) hypertension; E78.5 Hyperlipidemia, unspecified; J44.9 Chronic obstructive pulmonary disease, unspecified; F32.9 Major depressive disorder, single episode, unspecified; N40.0 Benign prostatic hyperplasia without lower urinary tract symptoms; D64.9 Anemia, unspecified; Z79.82 Long term (current) use of aspirin
CPT/HCPCS: 43246; J0690; J2370